=== PATIENT | female | born 1950 | race Caucasian/White ===

== ENCOUNTER 2019-10-27 14:48 | Outpatient (CLI) | payer MEDICARE, SELFPAY ==
--- NOTE | ~2019-10-27 | DEXA_ITS ---
Bone Density Report Name: Lauren Chen Age: 69 Sex: Female Ethnicity: White Date of : 1950 Indication: postmenopausal; cancer; asthma or emphysema; hysterectomy; Referring Provider: Marlin, Magali Sigala Study: Bone densitometry was performed. Exam Date: October 27, 2019 Accession number: [id number] Bone Density: Region BMD T-score Z-score Classification AP Spine (L1, L2, L3) 1.241 2.0 4.0 Normal Femoral Neck (Left) 0.752 -0.9 0.8 Normal Total Hip (Left) 0.916 -0.2 1.2 Normal Total Hip Bilateral Avg 0.938 -0.1 1.4 Normal Femoral Neck (Right) 0.799 -0.4 1.2 Normal Total Hip (Right) 0.958 0.1 1.5 Normal World Health Organization criteria for BMD impression classify patients as: Normal (T-score at or above -1.0), Osteopenia (T-score between -1.0 and -2.5), or Osteoporosis (T-score at or below -2.5). 10-year Fracture Risk: FRAX not reported because: All T-scores for Spine Total, Hip Total, Femoral Neck at or above -1.0 Previous Exams: Region Exam Age BMD T-score BMD Change BMD Change Date g/cm2 vs Baseline vs Previous AP Spine(L1, L2, L3) 10/27/2019 69 1.241 2.0 -0.003(-0.2%)# 0.021(1.7%) 07/09/2017 66 1.220 1.8 -0.024(-1.9%)# -0.030(-2.4%)* 11/09/2014 64 1.250 2.1 0.007(0.5%)# -0.016(-1.2%)# 07/30/2010 60 1.266 2.3 0.022(1.8%) 0.009(0.8%) 03/13/2008 57 1.256 2.2 0.013(1.0%) 0.039(3.2%)* 12/03/2005 55 1.217 1.8 -0.026(-2.1%)* -0.026(-2.1%)* 01/10/2004 53 1.243 2.0 Total Hip(Left) 10/27/2019 69 0.916 -0.2 -0.091(-9.0%)# -0.079(-8.0%)* 07/09/2017 66 0.996 0.4 -0.012(-1.2%)# 0.012(1.2%) 11/09/2014 64 0.984 0.3 -0.024(-2.4%)# 0.024(2.5%)# 07/30/2010 60 0.959 0.1 -0.048(-4.8%)* 0.053(5.9%)* 03/13/2008 57 0.906 -0.3 -0.101(-10.1%) -0.092(-9.2%)* 12/03/2005 55 0.998 0.5 -0.010(-1.0%) 0.027(2.8%) 01/10/2004 53 0.971 0.2 -0.037(-3.7%)* -0.037(-3.7%)* 10/21/2001 51 1.008 0.5 Total Hip(Right) 10/27/2019 69 0.958 0.1 -0.038(-3.8%)# -0.035(-3.5%)* 07/09/2017 66 0.993 0.4 -0.003(-0.3%)# 0.001(0.1%) 11/09/2014 64 0.992 0.4 -0.003(-0.4%)# 0.008(0.8%)# 07/30/2010 60 0.984 0.3 -0.011(-1.1%) 0.082(9.0%)* 03/13/2008 57 0.903 -0.3 -0.093(-9.3%)* -0.069(-7.1%)* 12/03/2005 55 0.972 0.2 -0.024(-2.4%) 0.019(2.0%) 01/10/2004 53 0.952 0.1 -0.043(-4.3%)* -0.043(-4.3%)* 10/21/2001 51 0.995 0.4 *Denotes significance at 95% confidence level, LSC for AP Spine = 0.022 g/cm2, LSC for Total
--- NOTE | ~2019-10-27 | MM_ITS ---
EXAMINATION: MM screening [facility] BI w lex HISTORY: Screening mammogram TECHNIQUE: Craniocaudal and mediolateral oblique 3-D tomosynthesis images were obtained and synthetic 2-D images were generated. CAD analysis was submitted and interpreted. COMPARISON: 07/09/2017, 11/09/2014, 12/31/2011 BREAST PARENCHYMAL COMPOSITION: The breasts are almost entirely fatty. FINDINGS: There is no evidence of suspicious mass, calcification, or architectural distortion to sugg est malignancy in either breast. There has been no suspicious interval change. IMPRESSION: 1. No mammographic evidence of malignancy. 2. Recommend routine screening mammography in one year. BI-RADS Category 1: Negative Reviewed, dictated and finalized at location A. TIER
== END 2019-10-27 14:49 | disposition home or self-care (01) ==
LOC: ANHIMG 14:54
PROVIDERS: PCP Family Medicine; Visit Provider Nurse Practitioner Family
DX: Z12.31 Encounter for screening mammogram for malignant neoplasm of breast (principal); Z78.0 Asymptomatic menopausal state
CPT/HCPCS: 77063; 77067; 77080

== ENCOUNTER 2020-04-10 09:27 | Outpatient (CLI) | payer MEDICARE, SELFPAY ==
[2020-04-10 10:55] LABS: Free T4 Free Thyroxine 1.52 ng/mL (0.78-2.19)
[2020-04-10 11:08] LABS: Thyroid Stimulating Hormone 0.166 uIU/mL (0.465-4.680)
[2020-04-13 14:05] LABS: Triiodothyronine T3 Free 3.2 pg/mL (2.3-4.2)
== END 2020-04-10 09:28 | disposition home or self-care (01) ==
LOC: ANHLAB 09:29
PROVIDERS: PCP Family Medicine; Visit Provider Internal Medicine Endocrinology, Diabetes & Metabolism
DX: C73 Malignant neoplasm of thyroid gland (principal); E04.9 Nontoxic goiter, unspecified
CPT/HCPCS: 36415; 84439; 84443; 84481

== ENCOUNTER 2020-10-02 06:41 | Outpatient (CLI) | payer MEDICARE, SELFPAY ==
[2020-10-02 08:23] LABS: Thyroid Stimulating Hormone 0.042 uIU/mL (0.465-4.680)
[2020-10-02 09:14] LABS: Free T4 Free Thyroxine 1.62 ng/mL (0.78-2.19)
[2020-10-07 05:24] LABS: Triiodothyronine T3 Free 3.6 pg/mL (2.3-4.2)
== END 2020-10-02 06:42 | disposition home or self-care (01) ==
PROVIDERS: PCP Family Medicine; Visit Provider Internal Medicine Endocrinology, Diabetes & Metabolism
DX: C73 Malignant neoplasm of thyroid gland (principal); E04.9 Nontoxic goiter, unspecified
CPT/HCPCS: 36415; 84439; 84443; 84481

== ENCOUNTER 2020-11-13 08:50 | Outpatient (CLI) | payer MEDICARE, SELFPAY ==
[2020-11-13 10:34] LABS: Thyroid Stimulating Hormone 0.024 uIU/mL (0.465-4.680)
[2020-11-13 11:09] LABS: Free T4 Free Thyroxine 1.57 ng/mL (0.78-2.19)
== END 2020-11-13 08:51 | disposition home or self-care (01) ==
PROVIDERS: PCP Family Medicine; Visit Provider Internal Medicine Endocrinology, Diabetes & Metabolism
DX: C73 Malignant neoplasm of thyroid gland (principal); E03.9 Hypothyroidism, unspecified
CPT/HCPCS: 36415; 84439; 84443

== ENCOUNTER 2020-11-26 16:43 | Outpatient (CLI) | payer MEDICARE, SELFPAY | END 2020-11-26 16:44 | disposition home or self-care (01) | LOC: ANHCOVIDVC 16:43 | PROVIDERS: PCP Family Medicine; Visit Provider Internal Medicine Endocrinology, Diabetes & Metabolism | DX: Z23 Encounter for immunization (principal) | CPT/HCPCS: 0001A; 91300 ==

== ENCOUNTER 2020-12-17 16:40 | Outpatient (CLI) | payer MEDICARE, SELFPAY | END 2020-12-17 16:41 | disposition home or self-care (01) | LOC: ANHCOVIDVC 16:40 | PROVIDERS: PCP Family Medicine | DX: Z23 Encounter for immunization (principal) | CPT/HCPCS: 0002A; 91300 ==

== ENCOUNTER 2021-02-26 10:32 | Outpatient (CLI) | payer MEDICARE, SELFPAY ==
--- NOTE | ~2021-02-26 | US_ITS ---
EXAMINATION: US carotid duplex BI DATE: 02/26/2021 11:02 INDICATION: Dizziness TECHNIQUE: Grayscale, color Doppler, and pulsed Doppler images of the cervical carotid arteries were obtained. The degree of vessel stenosis is placed in one of the following categories: normal, <50%, 5 0-69%, >=70% but less than near-occlusion, near-occlusion, or total occlusion. Note that percent sten osis relative to normal distal artery lumen diameter is indirectly measured from velocity measurement s as described by Sebastián, et al. Radiology 2003; 229:340-346. COMPARISON: None. FINDINGS: RIGHT: The right common carotid artery (CCA) peak systolic velocity (PSV) is 77 cm/s. The right internal car otid artery (ICA) PSV is 106 cm/s. The right ICA end-diastolic velocity (EDV) is 31 cm/s. The right I CA/CCA PSV ratio is 1.4. Grayscale and color Doppler images yield an estimate of <50% diameter reduct ion from plaque in the ICA. The external carotid artery (ECA) PSV is 121 cm/s. There is antegrade cyndy w in the right vertebral artery. LEFT: The left CCA PSV is 98 cm/s. The left ICA PSV is 80 cm/s. The left ICA EDV is 27 cm/s. The left ICA/C CA PSV ratio is 0.8. Grayscale and color Doppler images yield an estimate of <50% diameter reduction from plaque in the ICA. The ECA PSV is 145 cm/s. There is antegrade flow in the left vertebral artery . IMPRESSION: 1. <50% stenosis in the right internal carotid artery. 2. <50% stenosis in the left internal carotid artery. Reviewed, dictated and finalized at location A.
== END 2021-02-26 10:33 | disposition home or self-care (01) ==
PROVIDERS: PCP Nurse Practitioner Family; Visit Provider Nurse Practitioner Family
DX: R42 Dizziness and giddiness (principal); I65.23 Occlusion and stenosis of bilateral carotid arteries
CPT/HCPCS: 93880

== ENCOUNTER 2021-03-24 13:42 | Outpatient (CLI) | payer MEDICARE, SELFPAY ==
[2021-03-24 14:57] LABS: Thyroid Stimulating Hormone < 0.015 uIU/mL (0.465-4.680)
[2021-03-24 15:30] LABS: Free T4 Free Thyroxine 1.78 ng/mL (0.78-2.19)
[2021-03-28 02:25] LABS: Thyroglobulin 0.5 ng/mL (2.8-40.9); Thyroglobulin Antibodies <1 IU/mL (<=1)
== END 2021-03-24 13:43 | disposition home or self-care (01) ==
PROVIDERS: PCP Nurse Practitioner Family; Visit Provider Internal Medicine Endocrinology, Diabetes & Metabolism
DX: C73 Malignant neoplasm of thyroid gland (principal); E03.9 Hypothyroidism, unspecified
CPT/HCPCS: 36415; 84432; 84439; 84443; 86800

== ENCOUNTER 2021-10-20 06:47 | Outpatient (CLI) | payer MEDICARE, SELFPAY ==
[2021-10-20 08:16] LABS: Thyroid Stimulating Hormone 0.096 uIU/mL (0.465-4.680)
[2021-10-20 08:36] LABS: Free T4 Free Thyroxine 1.59 ng/mL (0.78-2.19)
[2021-10-24 06:20] LABS: Thyroglobulin 0.7 ng/mL (2.8-40.9); Thyroglobulin Antibodies <1 IU/mL (<=1)
== END 2021-10-20 06:48 | disposition home or self-care (01) ==
PROVIDERS: PCP Nurse Practitioner Family; Visit Provider Internal Medicine Endocrinology, Diabetes & Metabolism
DX: E03.9 Hypothyroidism, unspecified (principal); C73 Malignant neoplasm of thyroid gland
CPT/HCPCS: 36415; 84432; 84439; 84443; 86800

== ENCOUNTER 2021-12-16 08:27 | Emergency (ER) | payer MEDICARE, SELFPAY ==
--- NOTE | ~2021-12-16 | CT_ITS ---
EXAMINATION: CT facial bones w con DATE: 12/16/2021 09:38 INDICATION: Right-sided facial swelling. Assess for abscess. TECHNIQUE: Computed tomography (CT) of the facial bones and maxillofacial region was performed with 7 5 mL Omnipaque-350 intravenous contrast. Coronal reconstructions were obtained. Automated exposure co ntrol and iterative reconstruction technique were employed. The dose-length product was 606.55 mGy-cm . COMPARISON: None. FINDINGS: Soft tissue swelling the right side of the face beginning inferiorly in the anterior buccal region an d extending cephalad to the malar region, also involving the right lower eyelid. No abscess. Orbits a re otherwise normal with no post septal inflammatory stranding. Mild spondylosis in the visualized mi d to upper cervical spine. Bones are otherwise unremarkable with no fracture, cortical erosions or pe riosteal reaction. Mild mucoperiosteal thickening at the bilateral ethmoid sinuses. Remaining paranas al sinuses as well as the middle ear cavities and visualized mastoid air cells are clear. Asymmetric fatty atrophy of the right parotid gland. Mild asymmetric enlargement distal normal-sized right jugul ar chain and submandibular lymph nodes which are likely reactive. No pathologically enlarged lymphade nopathy in the head and neck. IMPRESSION: 1. Right facial soft tissue swelling and subcutaneous edema consistent with cellulitis without discre te abscess. Reviewed, dictated and finalized at location A. IMPRESSION: 1. Right facial soft tissue swelling and subcutaneous edema consistent with oscar lulitis without discrete abscess.
[2021-12-16 08:36] VITALS: BP 159/88; PULSE 75; RESP 18; TEMP 37; O2SAT 98
[2021-12-16 08:42] VITALS: O2SAT 98
[2021-12-16 08:59] LABS: Basophils Percent Auto 0.4 % (0.2-1.2); Eosinophils Percent Auto 0.4 % (0-4.4); Hematocrit 41.3 % (37.0-47.0); Hemoglobin 13.8 g/dL (12.0-15.0); Immature Granulocyte Absolute 0.04 K/mm3 (0.00-0.031); Immature Granulocyte Percent A 0.4 % (0-0.5); Lymphocytes Percent Auto 21.5 % (18.3-44.2); Mean Corpuscular HGB Conc 33.4 g/dl (32-36); Mean Corpuscular Hemoglobin 30.1 pg (26-34); Mean Corpuscular Volume 90.2 fl (80-100); Monocytes Absolute Auto 0.7 K/mm3 (0.1-0.6); Monocytes Percent Auto 6.7 % (2.6-8.5); Neutrophils Absolute Auto 7.6 K/mm3 (1.3-6.7); Neutrophils Percent Auto 70.6 % (45.5-73.1); Platelet Count Result 204 k/mm3 (150-375); Red Blood Count 4.58 M/mm3 (4.2-5.4); Red Cell Distribution Width 12.6 % (11.5-14.5); White Blood Count 10.7 K/mm3 (4.5-10.0)
[2021-12-16 09:10] LABS: Alanine Aminotransferase 22 U/L (4-35); Albumin Level 4.3 g/dL (3.5-5.1); Alkaline Phosphatase 73 U/L (38-126); Anion Gap 7 mmol/L (8-16); Aspartate Amino Transferase 29 U/L (14-36); Bilirubin,Total 0.5 mg/dL (0.2-1.3); Blood Urea Nitrogen 20 mg/dL (7-17); CRP 3.5 mg/dL (<1.0); Carbon Dioxide 26 mmol/L (22-30); Chloride 106 mmol/L (98-107); Estimated CRCL calculation 73 ml/min; Estimated Glomerular Filt Rate > 60; Glucose 135 mg/dL (65-110); Potassium 3.9 mmol/L (3.4-5.0); Sodium 139 mmol/L (137-145)
--- NOTE | 2021-12-16 09:30 | PC.NURSE ---
Pt off unit to CT.
[2021-12-16 09:31] LABS: Erythrocyte Sedimentation Rate 68 mm/hr (0-20)
--- NOTE | 2021-12-16 10:19 | ED.SKABFB ---
HPI - Skin/Abscess/Foreign Bdy General Chief complaint: Skin/Abscess/Foreign Body Stated complaint: facial swelling Time Seen by Provider: 12/16/21 08:30 Source: patient History of Present Illness HPI narrative: Patient presents with right facial swelling she had swelling for the past couple days she saw her primary care doctor was started on clindamycin yesterday she follow-up with him today there seemed to be more facial swelling prickly when she woke up he was concerned for an abscess so she was referred to the ER for further evaluation. Since walking around this morning her swelling has reduced. She denies any difficulty swallowing she denies any fevers or chills. She reports all her symptoms started when she noted a pimple on her right cheek that she attempted to pop. Related Data Home Medications Medication Instructions Recorded Confirmed lisinopril 20 mg tablet 20 mg PO DAILY 04/10/20 11/03/21 clindamycin HCl 300 mg PO Q6-8H 12/16/21 Allergies Allergy/AdvReac Type Severity Reaction Status Date / Time No Known Allergies Allergy Verified 11/03/21 08:19 Review of Systems Review of Systems: CONSTITUTIONAL: Denies fever, chills, or sweats. EYES: Denies visual changes, redness, or discharge. ENT: Denies rhinorrhea, congestion, sore throat, or otalgia. CARDIOVASCULAR: Denies chest pain, palpitations, or edema. RESPIRATORY: Denies cough or dyspnea. GASTROINTESTINAL: Denies abdominal pain, nausea, vomiting, or diarrhea. GENITOURINARY: Denies dysuria or hematuria. SKIN: Denies rash or itching. MUSCULOSKELETAL: Denies back pain, joint pain, or myalgia. NEUROLOGIC: Denies headache, numbness, dizziness, or weakness. PSYCHIATRIC: Denies anxiety or depression. All systems reviewed & are unremarkable except as noted in HPI and below PMFSH Past Medical History Medical History H/O: HTN (hypertension) Headache, migraine Malignant Neoplasm of Thyroid Gland Skin cancer Surgical History Surgical History H/O knee surgery H/O thyroidectomy H/O: hysterectomy Family History Family History Father Liver cancer Mother Complicated UTI (urinary tract infection) Sibling , sister Pancreatic cancer Other Alcoholism Diabetes mellitus H/O: HTN (hypertension) Social History Social History Smoking status: Former smoker Smoking end date: 04/10/00 Alcohol intake: current Alcohol use details: not often Exam Narrative: GENERAL: Well-appearing, well-nourished, and in no acute distress. HEAD: Normocephalic, atraumatic. EYES: PERRLA and EOMI. ENT: Nares clear, no rhinorrhea or epistaxis. Mucous membranes moist. Right facial swelling with focal area of tenderness just under the abrasion on the right cheek swelling is associated with erythema and warm NECK: Supple. No masses. No JVD CHEST: Clear to auscultation. No respiratory distress. No wheezes rales or rhonchi HEART: Regular rate and rhythm. No murmur heard. Normal peripheral pulses. ABDOMEN: Soft, nontender, nondistended, normal active bowel sounds. EXTREMITIES: Normal range of motion. No edema. SKIN: Warm, dry, no rash. NEURO: No focal deficits. Alert and oriented x3. PSYCH: Normal mood and affect. Course Reevaluation(s) Reevaluation #1: Patient resting, the results and plan reviewed with patient. Patient is comfortable outpatient plan. Date: 12/16/21 Time: 10:21 Vital Signs Vital signs: Vital Signs Temperature 37.0 C 12/16/21 08:36 Pulse Rate 75 12/16/21 08:36 Respiratory Rate 18 12/16/21 08:36 Blood Pressure 159/88 H 12/16/21 08:36 Pulse Oximetry 98 12/16/21 08:36 Temperature 37.0 C 12/16/21 08:36 Pulse Rate 65 12/16/21 10:56 Respiratory Rate 18 12/16/21 10:56 Blood
[2021-12-16 10:56] VITALS: BP 115/79; PULSE 65; RESP 18; O2SAT 98
== END 2021-12-16 10:58 | disposition home or self-care (01) ==
PROVIDERS: Emergency Provider Emergency Medicine; PCP Family Medicine
DX: L03.811 Cellulitis of head [any part, except face] (principal); I10 Essential (primary) hypertension; Z85.828 Personal history of other malignant neoplasm of skin; Z85.850 Personal history of malignant neoplasm of thyroid; E89.0 Postprocedural hypothyroidism; Z87.891 Personal history of nicotine dependence
CPT/HCPCS: 36415; 70487; 80053; 85025; 85652; 86140; 99284; Q9967

== ENCOUNTER 2022-04-15 15:50 | Outpatient (CLI) | payer MEDICARE, SELFPAY ==
--- NOTE | ~2022-04-15 | MM_ITS ---
EXAMINATION: MM screening [facility] BI w lex HISTORY: Screening TECHNIQUE: Craniocaudal and mediolateral oblique 3-D tomosynthesis images were obtained and synthetic 2-D images were generated. CAD analysis was submitted and interpreted. COMPARISON: Comparison to multiple prior studies sequentially, with oldest reviewed study dated 11/09. BREAST PARENCHYMAL COMPOSITION: There are scattered areas of fibroglandular density. FINDINGS: There are small developing fat-containing masses in the subareolar location of the right br east, consistent with fat necrosis, possibly posttraumatic. There is no evidence of suspicious mass, calcification, or architectural distortion to suggest malignancy in either breast. There has been no suspicious interval change. IMPRESSION: 1. No mammographic evidence of malignancy. 2. Recommend routine screening mammography in one year. BI-RADS Category 2: Benign finding(s). Reviewed, dictated and finalized at location L.
--- NOTE | ~2022-04-15 | DEXA_ITS ---
Bone Density Report Name: MASOUD BURT Age: 71 Sex: Female Ethnicity: White Date of : 1950 Indication: postmenopausal; screening for osteoporosis; height loss; cancer; asthma or emphysema; hysterectomy; Referring Provider: [facility] Study: Bone densitometry was performed. Exam Date: April 15, 2022 Accession number: [id number] Bone Density: Region BMD T-score Z-score Classification AP Spine(L1-L4) 1.337 2.6 4.8 Normal Femoral Neck (Left) 0.757 -0.8 1.0 Normal Total Hip (Left) 0.924 -0.1 1.4 Normal Femoral Neck (Right) 0.755 -0.8 1.0 Normal Total Hip (Right) 0.965 0.2 1.7 Normal Total Hip Mean 0.945 0.1 1.6 Normal World Health Organization criteria for BMD impression classify patients as: Normal (T-score at or above -1.0), Osteopenia (T-score between -1.0 and -2.5), or Osteoporosis (T-score at or below -2.5). 10-year Fracture Risk: FRAX not reported because: All T-scores for Spine Total, Hip Total, Femoral Neck at or above -1.0 Previous Exams: Region Exam Age BMD T-score BMD Change BMD Change Date g/cm2 vs Baseline vs Previous AP Spine (L1-L4) 04/15/2022 71 1.337 2.6 0.051 (3.9%)* 0.080 (6.4%)* 07/09/2017 66 1.257 1.9 -0.029 (-2.3%) -0.029 (-2.3%) 11/09/2014 64 1.286 2.2 Total Hip(Left) 04/15/2022 71 0.924 -0.1 -0.059 (-6.0%) 0.008 (0.9%) 10/27/2019 69 0.916 -0.2 -0.067 (-6.8%) -0.079 (-8.0%) 07/09/2017 66 0.996 0.4 0.012 (1.2%) 0.012 (1.2%) 11/09/2014 64 0.984 0.3 Total Hip(Right) 04/15/2022 71 0.965 0.2 -0.027 (-2.7%) 0.008 (0.8%) 10/27/2019 69 0.958 0.1 -0.034 (-3.5%) -0.035 (-3.5%) 07/09/2017 66 0.993 0.4 0.001 (0.1%) 0.001 (0.1%) 11/09/2014 64 0.992 0.4 *Denotes significance at 95% confidence level, LSC for AP Spine = 0.022 g/cm2, LSC for Total Hip = 0.027 g/cm2 Clinical Information Provided by Patient: Smokes Has the following medical conditions: Asthma or Emphysema, Cancer, Hysterectomy Patient maximum height was 66 Menopause Age: 51 Onset of menses at age 14 Number of children 1 Impression: The patient has normal bone mass. The patient has risk factors, including: smoking. No significant bone loss was observed. Discussion: BONE DENSITY IS ABOVE THE MINIMUM DESIRABLE LEVEL AT ALL SKELETAL SITES TESTED. This patient?s bone mineral density is above the minimum desirable level (T-score -1.0 or better) at all si
== END 2022-04-15 15:51 | disposition home or self-care (01) ==
LOC: ANHIMG 15:52
PROVIDERS: PCP Family Medicine; Visit Provider Family Medicine
DX: Z12.31 Encounter for screening mammogram for malignant neoplasm of breast (principal); Z91.89 Other specified personal risk factors, not elsewhere classified; Z78.0 Asymptomatic menopausal state
CPT/HCPCS: 77063; 77067; 77080

== ENCOUNTER 2022-06-03 07:55 | Outpatient (CLI) | payer MEDICARE, SELFPAY ==
[2022-06-03 09:00] LABS: Free T4 Free Thyroxine 1.83 ng/mL (0.78-2.19)
[2022-06-03 09:12] LABS: Thyroid Stimulating Hormone < 0.015 uIU/mL (0.465-4.680)
[2022-06-06 01:57] LABS: Thyroglobulin 0.5 ng/mL (2.8-40.9); Thyroglobulin Antibodies <1 IU/mL (<=1)
== END 2022-06-03 07:56 | disposition home or self-care (01) ==
PROVIDERS: PCP Family Medicine; Visit Provider Internal Medicine Endocrinology, Diabetes & Metabolism
DX: C73 Malignant neoplasm of thyroid gland (principal); E03.9 Hypothyroidism, unspecified
CPT/HCPCS: 36415; 84432; 84439; 84443; 86800

== ENCOUNTER 2022-12-10 09:26 | Outpatient (CLI) | payer MEDICARE, SELFPAY ==
[2022-12-10 11:22] LABS: Free T4 Free Thyroxine 1.93 ng/mL (0.78-2.19)
[2022-12-10 11:30] LABS: Thyroid Stimulating Hormone < 0.015 uIU/mL (0.465-4.680)
[2022-12-14 02:47] LABS: Thyroglobulin 0.8 ng/mL (2.8-40.9); Thyroglobulin Antibodies <1 IU/mL (<=1)
== END 2022-12-10 09:27 | disposition home or self-care (01) ==
PROVIDERS: PCP Family Medicine; Visit Provider Internal Medicine Endocrinology, Diabetes & Metabolism
DX: E03.9 Hypothyroidism, unspecified (principal); C73 Malignant neoplasm of thyroid gland
CPT/HCPCS: 36415; 84432; 84439; 84443; 86800

== ENCOUNTER 2023-01-08 14:30 | Outpatient (CLI) | payer MEDICARE, SELFPAY ==
--- NOTE | ~2023-01-08 | US_ITS ---
EXAMINATION: US soft tissue head and neck DATE: 01/08/2023 14:52 INDICATION: Malignant neoplasm of thyroid gland. TECHNIQUE: Multiple ultrasound images of the thyroid were obtained. COMPARISON: Ultrasound 10/14/2012 FINDINGS: The thyroid is absent. There is no abnormal tissue in the thyroidectomy bed. There are no pathologica lly enlarged lymph nodes. IMPRESSION: 1. Thyroidectomy. Reviewed, dictated and finalized at location A. IMPRESSION: 1. Thyroidectomy.
== END 2023-01-08 14:31 | disposition home or self-care (01) ==
PROVIDERS: PCP Family Medicine; Visit Provider Internal Medicine Endocrinology, Diabetes & Metabolism
DX: C73 Malignant neoplasm of thyroid gland (principal); E03.9 Hypothyroidism, unspecified
CPT/HCPCS: 76536

== ENCOUNTER 2023-01-11 13:36 | Outpatient (CLI) | payer MEDICARE, SELFPAY ==
--- NOTE | ~2023-01-11 | XR_ITS ---
XR foot RT min 3V DATE: 01/11/2023 13:56 INDICATION: Bilateral chronic foot pain. Medial heel pain. No known injury. TECHNIQUE: 4 views COMPARISON: None FINDINGS: Mild to moderate plantar and posterior calcaneal enthesopathy. There is mild to moderate osteophytic change at the first metatarsophalangeal joint. No fracture, dislocation, periosteal reaction or bone destruction. IMPRESSION: Plantar calcaneal enthesopathy Mild osteoarthritis Reviewed, dictated and finalized at location B.
--- NOTE | ~2023-01-11 | XR_ITS ---
XR foot LT min 3V DATE: 01/11/2023 13:56 INDICATION: Chronic posterior pain and region of Achilles tendon TECHNIQUE: 4 views COMPARISON: None FINDINGS: Moderately prominent posterior calcaneal enthesopathy with prominent soft tissue swelling a long the distal Achilles tendon and posterior calcaneal enthesopathy. Mild plantar calcaneal enthesopathy. There is mild osteoarthritis at the first, fourth and fifth metatarsophalangeal joints. Mild osteophy tic changes are noted some of the tarsal and tarsometatarsal joints. No fracture, dislocation, periosteal reaction or bone destruction is detected. IMPRESSION: Soft tissue swelling along the distal Achilles tendon and posterior calcaneal enthesopath y Mild plantar calcaneal enthesopathy Polyarticular mild osteoarthritis Reviewed, dictated and finalized at location B. IMPRESSION: Soft tissue swelling along the distal Achilles tendon and posterior calcaneal enthesopathy Mild plantar calcaneal enthesopathy Polyarticular mild osteoarthritis
== END 2023-01-11 13:37 | disposition home or self-care (01) ==
PROVIDERS: PCP Family Medicine; Visit Provider Family Medicine
DX: M19.072 Primary osteoarthritis, left ankle and foot (principal); M19.071 Primary osteoarthritis, right ankle and foot; M77.32 Calcaneal spur, left foot; M77.31 Calcaneal spur, right foot
CPT/HCPCS: 73630

== ENCOUNTER 2023-05-25 16:50 | Emergency (ER) | payer MEDICARE, SELFPAY ==
--- NOTE | 2023-05-25 16:57 | ED.EAR ---
HPI - Ear Problem General Chief complaint: Ear Stated complaint: lt earache Source: patient and RN notes reviewed History of Present Illness HPI Narrative: 72-year-old male presents to urgent care with complaint of left ear pain times 3-4 days. Patient is also reporting decreased hearing out of this ear. Patient states she believes she has a sinus infection which has now traveled to her ear. Patient reports being congested for 1 week. Denies any headache, fevers, chills, chest pain, shortness of breath, sore throat, vomiting, or diarrhea. Related Data Home Medications Medication Instructions Recorded Confirmed lisinopril 20 mg tablet 20 mg PO DAILY 04/10/20 05/25/23 atorvastatin 10 mg tablet 10 mg PO HS daily 05/25/23 05/25/23 Allergies Allergy/AdvReac Type Severity Reaction Status Date / Time No Known Allergies Allergy Verified 05/25/23 17:09 Review of Systems Review of Systems: CONSTITUTIONAL: Denies fever, chills, or sweats. EYES: Denies visual changes, redness, or discharge. ENT: left ear pain And congestion CARDIOVASCULAR: Denies chest pain, palpitations, or edema. RESPIRATORY: Denies cough or dyspnea. GASTROINTESTINAL: Denies abdominal pain, nausea, vomiting, or diarrhea. GENITOURINARY: Denies dysuria or hematuria. SKIN: Denies rash or itching. MUSCULOSKELETAL: Denies back pain, joint pain, or myalgia. NEUROLOGIC: Denies headache, numbness, or weakness. Pertinent positives per HPI. [facility] Past Medical History Medical History H/O: HTN (hypertension) Headache, migraine Malignant Neoplasm of Thyroid Gland Skin cancer Surgical History Surgical History H/O knee surgery H/O thyroidectomy H/O: hysterectomy Family History Family History Father Liver cancer Mother Complicated UTI (urinary tract infection) Sibling , sister Pancreatic cancer Other Alcoholism Diabetes mellitus H/O: HTN (hypertension) Social History Social History (Updated 12/15/22 @ 09:02 by Maurice Us CMA) Smoking status: Former smoker Smoking end date: 04/10/00 Alcohol intake: current Alcohol use details: not often Comments At the time of my signature, I reviewed and agree with the nursing past medical, surgical, social, and family history. There is no relevant family history pertinent to the patient complaint. Exam Narrative: GENERAL: This is a well-nourished, well-developed patient, in no apparent distress. HEAD: normocephalic, atraumatic. EYES: Sclera clear/white. Vision is grossly intact. EARS: External ears normal, auditory canals clear and without drainage, right-sided TM normal without perforation. Hearing grossly intact. left TM to be erythemic and slightly bulging. NOSE: congested THROAT: Mucous membranes moist, posterior pharynx clear. NECK: Neck supple, non-tender without lymphadenopathy, masses or thyromegaly. CARDIOVASCULAR: Regular rate and rhythm without murmurs, gallops, or rubs. RESPIRATORY: Clear to auscultation. Breath sounds equal bilaterally. No wheezes, rales, or rhonchi. GASTROINTESTINAL: Abdomen soft, non-tender, nondistended. Bowel sounds are active. No hepato-splenomegaly, or palpable masses. No guarding. SKIN: warm, intact with no suspicious lesions or rash, good texture and turgor. NEURO: awake, alert, and oriented to person, place and time. There were no obvious focal neurologic abnormalities. EXTREMITIES: No clubbing, cyanosis, or edema. No joint tenderness, effusion, or edema noted. BACK: Nontender without deformity or crepitus. No flank tenderness. Course Course Level of Care: Express Care Visit Vital Signs Vital signs: Vital Signs Temperature 98.1 F 05/25/23 17:03 Pulse Rate 94 05/25/23 17:03 Respiratory Rate 16 05/25/23 17:03
[2023-05-25 17:03] VITALS: BP 137/72; PULSE 94; RESP 16; TEMP 36.7; O2SAT 97
== END 2023-05-25 17:26 | disposition home or self-care (01) ==
PROVIDERS: Emergency Provider Nurse Practitioner Family; PCP Family Medicine
DX: H66.92 Otitis media, unspecified, left ear (principal); J32.9 Chronic sinusitis, unspecified; Z87.891 Personal history of nicotine dependence; I10 Essential (primary) hypertension; E89.0 Postprocedural hypothyroidism; Z85.850 Personal history of malignant neoplasm of thyroid
CPT/HCPCS: 99213; G0463

== ENCOUNTER 2023-06-01 07:54 | Outpatient (CLI) | payer MEDICARE, SELFPAY ==
[2023-06-01 08:55] LABS: Thyroid Stimulating Hormone < 0.015 uIU/mL (0.465-4.680)
[2023-06-01 09:01] LABS: Free T4 Free Thyroxine 1.94 ng/mL (0.78-2.19)
== END 2023-06-01 07:55 | disposition home or self-care (01) ==
LOC: ANHLAB 07:56
PROVIDERS: PCP Family Medicine; Visit Provider Internal Medicine Endocrinology, Diabetes & Metabolism
DX: E03.9 Hypothyroidism, unspecified (principal); C73 Malignant neoplasm of thyroid gland
CPT/HCPCS: 36415; 84439; 84443; 86800

== ENCOUNTER 2023-06-15 03:07 | Day surgery (SDC) | payer MEDICARE, SELFPAY ==
[2023-06-02 14:08] VITALS: BMI 33.8
[2023-06-15 07:35] VITALS: BP 142/79; PULSE 77; RESP 16; TEMP 35.7; O2SAT 98; BMI 33.3
[2023-06-15] MEDS: LACTATED RINGERS 1,000 ML 150 ML IV CONT (07:49)
--- NOTE | 2023-06-15 08:12 | PM.HPGS ---
History of Present Illness History of Present Illness Consent: Risks, benefits, and alternatives have been discussed and questions answered. Patient agrees to proceed with procedure. Chief complaint: Personal hx of colon polyps Narrative: Lauren Chen is a 72 year old female Presents for screening colonoscopy. Patient's current weight appetite and bowel movements are normal. She denies abdominal pain. Patient's previous colonoscopy 2017 revealed a benign adenomatous colon polyp. Patient reports current bowel habits are normal. Review of Systems Review of Systems: Review of systems noncontributory. [facility] Past Medical History Medical History H/O: HTN (hypertension) Headache, migraine Malignant Neoplasm of Thyroid Gland Skin cancer Surgical History Surgical History H/O knee surgery H/O thyroidectomy H/O: hysterectomy Family History Family History Father Liver cancer Mother Complicated UTI (urinary tract infection) Sibling , sister Pancreatic cancer Other Alcoholism Diabetes mellitus H/O: HTN (hypertension) Social History Social History (Updated 12/15/22 @ 09:02 by Maurice Us CMA) Years smoked: 15 Smoking status: Former smoker Tobacco type: cigarettes Smoking end date: 04/10/00 Alcohol intake: never Alcohol use details: not often Substance use: never Substance use type: does not use Living arrangements: with family Spiritual care concerns: No Meds Home Medications and Allergies Home Medications Medication Instructions Recorded Confirmed Type lisinopril 20 mg tablet 20 mg PO DAILY 04/10/20 06/15/23 History levothyroxine 137 mcg tablet See Rx Instructions .Route 02/15/23 06/15/23 Rx .COMPLEX #90 tabs atorvastatin 10 mg tablet 10 mg PO HS daily 05/25/23 06/15/23 History fluticasone propionate 50 1 spray intranasal BID #16 grams 05/25/23 06/15/23 Rx mcg/actuation nasal spray,suspension (24 Hour Allergy Relief) aspirin 81 mg capsule 81 mg PO EVERY OTHER DAY 06/02/23 06/15/23 History Allergies Allergy/AdvReac Type Severity Reaction Status Date / Time No Known Allergies Allergy Verified 06/15/23 07:42 Vital Signs Vital Signs - 24 hr 06/15/23 07:35 Temperature 96.2 F L Pulse Rate 77 Respiratory Rate 16 Blood Pressure 142/79 H Pulse Oximetry 98 Oxygen Delivery Room Air Exam Narrative: Physical exam reveals patient to be alert. Vital signs stable. HEENT exam is unremarkable. Patient is anicteric. Lungs are clear to auscultation and percussion. Heart is without murmur or extra sounds. Abdomen bowel sounds are present soft nontender with no organomegaly. Digital external rectal exam is normal. Assessment and Plan Assessment and plan (1) History of colon polyps: Code(s): Z86.010 - Personal history of colonic polyps Status: Acute Assessment and Plan: Patient has a history of adenomatous colon polyp removed from the colon 2017. Plan for surveillance colonoscopy at this time. Further recommendations may be given after endoscopy.
--- NOTE | 2023-06-15 08:36 | WPDANESEPPF ---
Anes - Initial Pre Proc Eval Procedure: Operation Date: 06/15/23 09:00 Proposed Procedures p Colonoscopy - Darvin Lynn MD Date/Time: 06/15/23 08:36 Surgeon: Darvin Lynn MD Pre Op Diagnosis: Personal hx of colon polyps Patient Data Age: 72 Gender: F Height: 1.7 m Weight: 96.4 kg Last Vital Signs Temp 96.2 F L 06/15/23 07:35 Pulse 77 06/15/23 07:35 Resp 16 06/15/23 07:35 BP 142/79 H 06/15/23 07:35 Pulse Ox 98 06/15/23 07:35 O2 Del Method Room Air 06/15/23 07:35 Allergies Allergy/AdvReac Type Severity Reaction Status Date / Time No Known Allergies Allergy Verified 06/15/23 07:42 Home Medications Medication Instructions Recorded Confirmed Type lisinopril 20 mg tablet 20 mg PO DAILY 04/10/20 06/15/23 History levothyroxine 137 mcg tablet See Rx Instructions .Route 02/15/23 06/15/23 Rx .COMPLEX #90 tabs atorvastatin 10 mg tablet 10 mg PO HS daily 05/25/23 06/15/23 History fluticasone propionate 50 1 spray intranasal BID #16 grams 05/25/23 06/15/23 Rx mcg/actuation nasal spray,suspension (24 Hour Allergy Relief) aspirin 81 mg capsule 81 mg PO EVERY OTHER DAY 06/02/23 06/15/23 History Patient hx anesthesia problems: none Family hx anesthesia problems: none Results Review: All pre-operative results and documents have been reviewed as part of the pre-operative evaluation. [facility] [place] Past Medical History Medical History H/O: HTN (hypertension) Headache, migraine Malignant Neoplasm of Thyroid Gland Skin cancer Surgical History Surgical History H/O knee surgery H/O thyroidectomy H/O: hysterectomy Family History Family History Father Liver cancer Mother Complicated UTI (urinary tract infection) Sibling , sister Pancreatic cancer Other Alcoholism Diabetes mellitus H/O: HTN (hypertension) Social History Social History (Updated 12/15/22 @ 09:02 by Maurice Us [facility]) Years smoked: 15 Smoking status: Former smoker Tobacco type: cigarettes Smoking end date: 04/10/00 Alcohol intake: never Alcohol use details: not often Substance use: never Substance use type: does not use Living arrangements: with family Spiritual care concerns: No Anes - Eval Final PreProcedure Day of Procedure 06/15/23 08:36 Patient weight: obese Heart: regular rate and rhythm Lungs: clear to auscultation Airway: Mallampati scale class II Neurological: alert and oriented Last oral intake: >/= 8 hours ASA classification: III Emergent: no Anesthetic plan: proceed Anesthesia type and monitoring: general GIVS and standard monitoring Results Review: All pre-operative results and documents have been reviewed as part of the pre-operative evaluation. Informed Consent: The patient's anesthetic plan and its attendant risks and benefits were discussed with the patient/family/POA. Questions were solicited and answers provided to the satisfaction of the patient/family/POA.
[2023-06-15 09:17] VITALS: BP 114/65; PULSE 71; RESP 18; O2SAT 98
[2023-06-15 09:27] VITALS: BP 109/64; PULSE 67; RESP 19; O2SAT 100
[2023-06-15 09:37] VITALS: BP 114/75; PULSE 62; RESP 20; O2SAT 98
== END 2023-06-15 09:41 | disposition home or self-care (01) ==
PROVIDERS: PCP Family Medicine; Visit Provider Internal Medicine Gastroenterology
PROC: 0DJD8ZZ Inspection of Lower Intestinal Tract, Via Natural or Artificial Opening Endoscopic (ICD-10-PCS; CPT 45378; principal; 2023-06-15 09:00)
DX: Z12.11 Encounter for screening for malignant neoplasm of colon (principal); K64.8 Other hemorrhoids; Z86.010 Personal history of colon polyps; E89.0 Postprocedural hypothyroidism; Z85.850 Personal history of malignant neoplasm of thyroid; Z87.891 Personal history of nicotine dependence; E66.9 Obesity, unspecified; Z68.33 Body mass index [BMI] 33.0-33.9, adult
CPT/HCPCS: G0105; J2704; J7120

== ENCOUNTER 2023-09-22 10:30 | Emergency (ER) | payer MEDICARE, SELFPAY ==
[2023-09-22 10:45] VITALS: BP 120/84; PULSE 93; RESP 16; TEMP 36.7; O2SAT 97
--- NOTE | 2023-09-22 11:14 | ED.URI ---
HPI - URI/Sore Throat General Chief Complaint: Upper Respiratory Infection Stated Complaint: Sinus Time Seen by Provider: 09/22/23 11:19 Source: patient and RN notes reviewed Mode of arrival: ambulatory Limitations: no limitations History of Present Illness HPI Narrative: 73-year-old female presents with concern for 3 week history of sinus congestion, drainage, sinus pressure. Reports pain around her eyes, dental pain from sinus pressure. Reports she has tried [id number] medications without relief. She has had negative COVID test. MD elicited complaint: cough and sore throat Related Data Home Medications Medication Instructions Recorded Confirmed lisinopril 20 mg tablet 20 mg PO DAILY 04/10/20 09/22/23 atorvastatin 10 mg tablet 10 mg PO HS daily 05/25/23 09/22/23 aspirin 81 mg capsule 81 mg PO EVERY OTHER DAY 06/02/23 09/22/23 Allergies Allergy/AdvReac Type Severity Reaction Status Date / Time No Known Allergies Allergy Verified 09/22/23 10:52 Review of Systems Review of Systems: CONSTITUTIONAL: Reports malaise. Denies chills, sweats, or fever. EYES: Denies visual changes, redness, or discharge. ENT: Reports rhinorrhea, congestion, sinus pain, otalgia CARDIOVASCULAR: Denies chest pain, palpitations, or edema. RESPIRATORY: Reports cough. Denies dyspnea. GASTROINTESTINAL: Denies abdominal pain, nausea, vomiting, diarrhea SKIN: Denies rash or itching. MUSCULOSKELETAL: Denies myalgia. NEUROLOGIC: Reports headache. All systems reviewed & are unremarkable except as noted in HPI and below PMFSH Past Medical History Medical History H/O: HTN (hypertension) Headache, migraine Malignant Neoplasm of Thyroid Gland Skin cancer Surgical History Surgical History H/O knee surgery H/O thyroidectomy H/O: hysterectomy Family History Family History Father Liver cancer Mother Complicated UTI (urinary tract infection) Sibling , sister Pancreatic cancer Other Alcoholism Diabetes mellitus H/O: HTN (hypertension) Social History Social History (Updated 06/22/23 @ 08:52 by Rachel Smith CMA) Years smoked: 15 Smoking status: Former smoker Tobacco type: cigarettes Smoking end date: 04/10/00 Alcohol intake: never Alcohol use details: not often Substance use: never Substance use type: does not use Lack of Transportation: No Lack of Food: Never True Current Housing: I Have Housing Concerned About Future Housing: No Difficulty Paying Gas/Electric Bills: No Difficulty Paying for Meds: No Currently Unemployed: No Education: Associate Degree Difficulty w/ Childcare or Family Care: No Living arrangements: with family Spiritual care concerns: No Comments At time of signature, agree with nursing past medical, surgical, social and family history. There is no relevant family history pertinent to the presenting complaint Exam Narrative: GENERAL: Nontoxic-appearing, well-nourished, and in no acute distress. HEAD: Normocephalic EYES: PERRLA, conjunctivae clear ENT: Nares clear. Sinus tenderness. mucous membranes moist. TM pearly vasquez with dull light reflex bilaterally; no tragal tenderness. Oropharynx not erythematous without lesions. Tonsils not enlarged and without exudate, no drooling, no hoarseness, no trismus, uvula midline. NECK: Supple. No lymphadenopathy CHEST: Clear to auscultation, breath sounds equal. No wheezing, rhonchi, rales, or stridor. No respiratory distress, speaks in full sentences. HEART: Regular rate and rhythm. No murmur heard. SKIN: Warm, dry, no rash. NEURO: Alert and oriented x3. PSYCH: Normal mood and affect Course Course Emergency Course: Patient is aware of diagnosis, understands and agrees to treatment plan. Anticipatory
== END 2023-09-22 11:28 | disposition home or self-care (01) ==
PROVIDERS: Emergency Provider Nurse Practitioner; PCP Family Medicine
DX: J32.9 Chronic sinusitis, unspecified (principal); J40 Bronchitis, not specified as acute or chronic; Z87.891 Personal history of nicotine dependence; I10 Essential (primary) hypertension; E89.0 Postprocedural hypothyroidism; Z85.850 Personal history of malignant neoplasm of thyroid; Z87.2 Personal history of diseases of the skin and subcutaneous tissue; Z79.82 Long term (current) use of aspirin
CPT/HCPCS: 99213; G0463

== ENCOUNTER 2023-12-21 07:38 | Outpatient (CLI) | payer MEDICARE, SELFPAY ==
[2023-12-21 09:29] LABS: Free T4 Free Thyroxine 2.03 ng/mL (0.78-2.19)
[2023-12-21 09:38] LABS: Thyroid Stimulating Hormone < 0.015 uIU/mL (0.465-4.680)
[2023-12-24 03:01] LABS: Thyroglobulin 0.9 ng/mL (2.8-40.9); Thyroglobulin Antibodies <1 IU/mL (<=1)
== END 2023-12-21 07:39 | disposition home or self-care (01) ==
PROVIDERS: PCP Family Medicine; Visit Provider Internal Medicine Endocrinology, Diabetes & Metabolism
DX: E03.9 Hypothyroidism, unspecified (principal); C73 Malignant neoplasm of thyroid gland
CPT/HCPCS: 36415; 84432; 84439; 84443; 86800

== ENCOUNTER 2024-02-14 06:51 | Outpatient (CLI) | payer MEDICARE, SELFPAY ==
[2024-02-14 08:12] LABS: Thyroid Stimulating Hormone 0.024 uIU/mL (0.465-4.680)
[2024-02-14 08:17] LABS: Free T4 Free Thyroxine 1.43 ng/mL (0.78-2.19)
[2024-02-16 06:59] LABS: Thyroglobulin 0.9 ng/mL; Thyroglobulin Antibodies <1 IU/mL (< or = 1)
[2024-02-17 02:03] LABS: Triiodothyronine T3 Free 3.4 pg/mL (2.3-4.2)
== END 2024-02-14 06:52 | disposition home or self-care (01) ==
PROVIDERS: PCP Family Medicine
DX: C73 Malignant neoplasm of thyroid gland (principal)
CPT/HCPCS: 36415; 84432; 84439; 84443; 84481; 86800

== ENCOUNTER 2024-02-28 06:46 | Outpatient (CLI) | payer MEDICARE, SELFPAY ==
[2024-03-01 07:09] LABS: Thyroglobulin 1.4 ng/mL; Thyroglobulin Antibodies <1 IU/mL (< or = 1)
== END 2024-02-28 06:47 | disposition home or self-care (01) ==
PROVIDERS: PCP Family Medicine
DX: C73 Malignant neoplasm of thyroid gland (principal)
CPT/HCPCS: 36415; 84432; 84443; 86800

== ENCOUNTER 2024-04-14 08:36 | Emergency (ER) | payer MEDICARE, SELFPAY ==
--- NOTE | 2024-04-14 08:45 | ED.SKABFB ---
HPI - Skin/Abscess/Foreign Bdy General Chief complaint: Skin/Abscess/Foreign Body Stated complaint: insect bite lower extremity Time Seen by Provider: 04/14/24 08:45 Source: patient Mode of arrival: ambulatory Limitations: no limitations History of Present Illness HPI narrative: Lauren is a 73 y/o female with a history of thyroid cancer and recent lymph node dissection (04/10/24) who presents with complaints of a rash on her left thigh. She states she noticed it on the march and has slowly gotten bigger since then. She states she was outside but denies seeing any insect bite her. She denies itching, drainage, swelling, numbness/tingling, body aches, joint pain, or shortness of breath. Related Data Home Medications Medication Instructions Recorded Confirmed lisinopril 20 mg tablet 20 mg PO DAILY 04/10/20 04/14/24 atorvastatin 10 mg tablet 10 mg PO HS daily 05/25/23 04/14/24 aspirin 81 mg capsule 81 mg PO EVERY OTHER DAY 06/02/23 04/14/24 Allergies Allergy/AdvReac Type Severity Reaction Status Date / Time No Known Allergies Allergy Verified 01/12/24 10:57 Review of Systems Review of Systems: Pertinent positives per HPI. Patient denies any fever, chills, headache, visual changes, dizziness, cough, runny nose, sore throat, shortness of breath, chest pain, palpitations, nausea, vomiting, diarrhea, constipation, abdominal pain, or any urinary issues. [facility] Past Medical History Medical History H/O: HTN (hypertension) Headache, migraine Malignant Neoplasm of Thyroid Gland Skin cancer Surgical History Surgical History H/O knee surgery H/O thyroidectomy H/O: hysterectomy Family History Family History Father Liver cancer Mother Complicated UTI (urinary tract infection) Sibling , sister Pancreatic cancer Other Alcoholism Diabetes mellitus H/O: HTN (hypertension) Social History Social History Years smoked: 15 Smoking status: Former smoker Tobacco type: cigarettes Smoking end date: 04/10/00 Alcohol intake: never Alcohol use details: not often Substance use: never Substance use type: does not use Lack of Transportation: No Lack of Food: Never True Current Housing: I Have Housing Concerned About Future Housing: No Difficulty Paying Gas/Electric Bills: No Difficulty Paying for Meds: No Currently Unemployed: No Education: Associate Degree Difficulty w/ Childcare or Family Care: No Living arrangements: with family Spiritual care concerns: No Comments At the time of my signature, I reviewed and agree with the nursing past medical, surgical, social, and family history. There is no relevant family history pertinent to the patient complaint. Exam Narrative: General: Well-developed, well nourished, in no apparent distress Head: Normocephalic, atraumatic. Cardio: Regular rate and rhythm, s1 and s2 normal, no murmur appreciated. Resp: Clear to auscultation bilaterally, no rhonchi, rales, wheezing or rubs. Integumentary: left proximal anterior thigh rash measures 7x5 cm, circular, erythematous border with obvious entry point, no retained foreign body/object, tender to palpation, no drainage Course Course Emergency Course: Portions of this record may have been created with voice recognition software. Level of Care: Express Care Visit Vital Signs Vital signs: Vital Signs Temperature 37.1 C 04/14/24 08:49 Pulse Rate 106 H 04/14/24 08:49 Respiratory Rate 18 04/14/24 08:49 Blood Pressure 124/77 04/14/24 08:49 Pulse Oximetry 98 04/14/24 08:49 Oxygen Delivery Room Air 04/14/24 08:49 Temperature 37.1 C 04/14/24 08:52 Pulse Rate 106 H 04/14/24 08:52 Respirat
[2024-04-14 08:49] VITALS: BP 124/77; PULSE 106; RESP 18; TEMP 37.1; O2SAT 98
[2024-04-14 08:52] VITALS: BP 124/77; PULSE 106; RESP 18; TEMP 37.1; O2SAT 98
== END 2024-04-14 09:09 | disposition home or self-care (01) ==
PROVIDERS: Emergency Provider Nurse Practitioner Family; PCP Family Medicine
DX: S70.362A Insect bite (nonvenomous), left thigh, initial encounter (principal); W57.XXXA Bitten or stung by nonvenomous insect and other nonvenomous arthropods, initial encounter; Z87.891 Personal history of nicotine dependence; I10 Essential (primary) hypertension; Z85.850 Personal history of malignant neoplasm of thyroid; Z85.828 Personal history of other malignant neoplasm of skin; Z79.82 Long term (current) use of aspirin
CPT/HCPCS: 99213; G0463

== ENCOUNTER 2024-06-29 07:31 | Outpatient (CLI) | payer MEDICARE, SELFPAY ==
[2024-06-29 09:14] LABS: Thyroid Stimulating Hormone < 0.015 uIU/mL (0.465-4.680)
[2024-06-29 14:25] LABS: Free T4 Free Thyroxine 1.92 ng/mL (0.78-2.19)
[2024-07-03 09:22] LABS: Thyroglobulin Antibodies <1 IU/mL (< or = 1)
== END 2024-06-29 07:32 | disposition home or self-care (01) ==
PROVIDERS: PCP Family Medicine; Visit Provider Internal Medicine Endocrinology, Diabetes & Metabolism
DX: C73 Malignant neoplasm of thyroid gland (principal); E03.9 Hypothyroidism, unspecified
CPT/HCPCS: 36415; 84432; 84439; 84443; 86800

== ENCOUNTER 2024-11-10 09:59 | Emergency (ER) | payer MEDICARE, SELFPAY ==
--- NOTE | 2024-11-10 10:00 | ED_ITS ---
HPI - URI/Sore Throat General Chief Complaint: Upper Respiratory Infection Stated Complaint: flu symptoms Time Seen by Provider: 11/10/24 10:00 Source: patient Mode of arrival: ambulatory Limitations: no limitations History of Present Illness HPI Narrative: Lauren is a 74-year-old female patient presenting to the clinic today with complaints of flu-like symptoms x3 days. She reports she has had body aches, chills, cough, chest congestion, and headache. States she does have a scratchy throat due to the nasal drainage. Is coughing up some bright green phlegm at times. She is a nonsmoker. No history of COPD or asthma. Has been was tested for influenza A and positive few days ago MD elicited complaint: cough and nasal congestion Related Data Home Medications ?Medication ?Instructions ?Recorded ?Confirmed ?Last Taken ?Type lisinopril 20 mg tablet 20 mg PO DAILY 04/10/20 07/13/24 Unknown History atorvastatin 10 mg tablet 10 mg PO HS daily 05/25/23 07/13/24 Unknown History aspirin 81 mg capsule 81 mg PO EVERY OTHER DAY 06/02/23 07/13/24 Unknown History Allergies Allergy/AdvReac Type Severity Reaction Status Date / Time No Known Allergies Allergy Verified 11/10/24 10:20 Review of Systems Review of Systems: Pertinent positives per HPI. Patient denies any fever, chills, rash, headache, visual changes, dizziness, cough, shortness of breath, chest pain, palpitations, nausea, vomiting, diarrhea, constipation, abdominal pain, or any urinary issues. PMFSH Past Medical History Medical History Skin cancer Headache, migraine H/O: HTN (hypertension) Malignant Neoplasm of Thyroid Gland Surgical History Surgical History H/O total thyroidectomy with left radical neck dissection H/O knee surgery H/O thyroidectomy H/O: hysterectomy Family History Family History Father Liver cancer Mother Complicated UTI (urinary tract infection) Sibling , sister Pancreatic cancer Other Alcoholism Diabetes mellitus H/O: HTN (hypertension) Social History Social History Years smoked: 15 Smoking status: Former smoker Tobacco type: cigarettes Smoking end date: 04/10/00 Alcohol intake: never Alcohol use details: not often Substance use: never Substance use type: does not use Lack of Transportation: No Lack of Food: Never True Current Housing: I Have Housing Concerned About Future Housing: No Difficulty Paying Gas/Electric Bills: No Difficulty Paying for Meds: No Currently Unemployed: No Education: Associate Degree Difficulty w/ Childcare or Family Care: No Living arrangements: with family Spiritual care concerns: No Comments At the time of my signature, I reviewed and agree with the nursing past medical, surgical, social, and family history. There is no relevant family history pertinent to the patient complaint. Exam Narrative: General: Well-developed, well nourished, in no apparent distress Head: Normocephalic, atraumatic Eyes: Pupils equally round and reactive to light bilaterally, EOM intact, sclera and conjunctive clear, no discharge, lids normal Ears: TMs intact and congested, ear canals clear, no drainage, grossly hearing normal. Nose: Nares patent, clear nasal discharge, no inflammation, no sinus tenderness. Mouth: Oral pharynx without lesions or masses, good dentition, MMM. Postnasal drip Neck: Supple, trachea midline, no enlargement of anterior or posterior cervical nodes, no thyroid masses or goiter palpable. Cardio: Regular rate and rhythm, s1 and s2 normal, no murmur appreciated. Resp: Clear to auscultation bilaterally, no rhonchi, rales, wheezing or rubs Course Course Emergency Course: Portions of this record may have been created with voice recognition software. Level of Care: Express Care Visit Vital Signs Vital signs: Vital Signs Temperature 36.4 C 11/10/24 10:15 Pulse Rate 95 11/10/24 10:15 Respiratory Rate 18 11/10/24 10:15 Blood Pressure 139/79 11/10/24 10:15 Pulse Oximetry 99 11/10/24 10:15 Oxygen Delivery Room Air 11/10/24 10:15 Temperature 36.4 C 11/10/24 10:15 Pulse Rate 95 11/10/24 10:15 Respiratory Rate 18 11/10/24 10:15 Blood Pressure 139/79 11/10/24 10:15 Pulse Oximetry 99 02/14/25 10:15 Oxygen Delivery Room Air 11/10/24 10:15 Vital signs reviewed MDM - URI/Sore Throat MDM Narrative Medical decision making narrative: At the time of visit patient is resting comfortably on the exam table. Patient appears to be nontoxic. Labs: COVID and influenza testing was negative in the clinic today. Plan: I suspect patient has URI with cough and congestion. We will send in prescription for prednisone. Supportive measures were discussed with the patient and they voiced understanding discharge instructions and agrees to treatment plan. Return precautions reviewed Differential Diagnosis Differential diagnosis: Likely upper respiratory infection, otitis media, sinusitis, viral infection, bronchitis, influenza, pharyngitis and other (COVID) Discharge Plan Discharge Clinical Impression: Upper respiratory infection with cough and congestion Patient Disposition: Home, Self-Care Condition: Stable Instructions: Antibiotic Form, Upper Respiratory Infection (ED), Viral Syndrome (ED) Additional Instructions: COVID and influenza testing was negative in the clinic today. Take prescription medications only as prescribed-prednisone Cool-mist humidifier at the bedside May take Coricidin HBP for cold and flu symptoms Increase fluids and stay well hydrated Tylenol/motrin for pain/fever Flonase and OTC antihistamines as directed Vicks vapor rub to open sinuses Sinus rinses for congestion Cepacol spray, cough drops, throat lozenges, warm tea with honey/lemon, gargle salt water to soothe throat BRAT diet for diarrhea Clear liquids x 24 hours then advance as tolerated for nausea/vomiting Go to the ED if you develop a worsening in your condition- high fever not con trolled by Tylenol or Motrin, dehydration, weakness, lethargy, shortness of breath, or chest pain. Follow up with your PCP in 3-5 days if symptoms persist. Patient Language: Tamazight Prescriptions: New prednisone 20 mg tablet 40 mg PO DAILY 5 Days Qty: 10 0RF No Action atorvastatin 10 mg tablet 10 mg PO HS lisinopril 20 mg tablet 20 mg PO DAILY aspirin 81 mg Capsule 81 mg PO EVERY OTHER DAY levothyroxine 137 mcg tablet 137 mcg PO DAILY Qty: 90 3RF Follow-up/Referrals: Mac,MD Bubba [Primary Care Provider] - Time of Disposition: 10:26 Quality NIHSS Nursing Documentation ED NIHSS nursing documentation: reviewed/agree
--- OUTSIDE RECORDS SUMMARY | 2024-11-10 10:10 | XMS_ITS | Data Portability ---
Author Organization [place] [facility] [employer], Main Office Address [address] [place] [address] Assessment Encounter Date Assessment Date Assessment LastModified by Organization Details LastModified Time 02/04/2023 02/04/2023 This note is dictated and transcribed by [employer]. Abrasives Sales Representative variances may occur. Despite proofreading, typographical errors may occur. Not available 02/04/2023 11:45:32 04/05/2023 04/05/2023 This note is dictated and transcribed by [employer]. Abrasives Sales Representative variances may occur. Despite proofreading, typographical errors may occur. Not available 04/05/2023 11:50:04 11/11/2023 11/11/2023 72 yo F with - WELL ADULT VISIT - B/L CERUMEN IMPACTION - HLD - HTG - HTN - HYPOTHYROIDISM - B/L FEET PAIN, chronic - PALPITATIONS, intermittent - OBESITY I - H/O VIT D DEFICIENCY - H/O RT FACIAL CYST US thyroid: 01/08/23. Annual labs: 02/05/22. CT face with: 12/16/21. D/w pt in detail about her conditions, recent labs & imagines and further plan of care. Will do routine labs. Pt declined for any Rx med for her Panic attack/Anxiety attack & Feet pain. Meds as directed. Risks Vs benefits of Aspirin 81mg po QOD with food explained. Pt agreed. Diet and exercise explained in detail. BP diary education given and call us if any concerns. Cont f/u with Vocational Rehabilitation Supervisor as per schedule. Cont f/u with Cardio at [place] as per schedule. Cont f/u with Plastics at [place] as per schedule. Cont f/u with Endo at [place] as per schedule. Cont f/u with Ophtho at [place] as per schedule. HM: WWE - Long time ago. Pt declined. Mammo - 04/15/22, normal. Ordered. Colonoscopy - 06/19, polyp ++ in the past. Cont f/u with GI as per schedule (5 yrs). DEXA - 04/15/22, normal. Flu - 07/19. Tdap - 02/05/22. Pneumo - Pt got 2 doses. Shingrix - Pt got 2 doses. F/u in 2-3 weeks. B/l ear flushing on next visit. Annual labs in 11/21. [email or web address] Not available 11/11/2023 12:40:56 12/02/2023 12/02/2023 73 yo F with - B/L CERUMEN IMPACTION; S/p flushing today - ELEVATED LFTs, mild - HLD - HTG - HTN - HYPOTHYROIDISM - B/L FEET PAIN, chronic - PALPITATIONS, intermittent - OBESITY I - H/O VIT D DEFICIENCY - H/O RT FACIAL CYST Annual labs: 11/11/23. US thyroid: 01/08/23. Annual labs: 02/05/22. CT face with: 12/16/21. D/w pt in detail about her conditions, recent labs & imagines and further plan of care. Pt declined for any further work up for her LFTs at this time. Pt declined for any Rx med for her Panic attack/Anxiety attack & feet pain. Meds as directed. Risks Vs benefits of Aspirin 81mg po QD with food explained. Pt agreed. Diet and exercise explained in detail. BP diary education given and call us if any concerns. Cont f/u with Vocational Rehabilitation Supervisor as per schedule. Cont f/u with Cardio at [place] as per schedule. Cont f/u with Plastics at [place] as per schedule. Cont f/u with Endo at [place] as per schedule. Cont f/u with Ophtho at [place] as per schedule. HM: WWE - Long time ago. Pt declined. Mammo - 12/01/23, normal. Colonoscopy - 06/19, polyp ++ in the past. Cont f/u with GI as per schedule (5 yrs). DEXA - 04/15/22, normal. Flu - 07/19. Tdap - 02/05/22. Pneumo - Pt got 2 doses. Shingrix - Pt got 2 doses. F/u in 3-4 months. Lipids, LFT before next visit. Annual labs in 11/21. [email or web address] Not available 12/02/2023 11:19:05 Plan of Treatment Reminders Order Date Submit Date Provider Last Modified By Organization Details Last Modified Time Details Appointments Follow Up 15 2024 08:[address] Watts MD Not available Not available Not available Lab lipid panel, serum [address] (Lab), [address] [place], [address], 02/22/2024 08:09:22 hepatic function panel, serum [address] (Lab), [address] [place], [address], 02/22/2024 08:09:23 uric acid, serum or plasma 2023 024 [facility] (Lab), [address] [place], [address], 11/11/2023 20:30:48 CBC w/ auto diff 2023 024 [facility] (Lab), [address] [place], [address], 11/11/2023 19:29:31 CMP, serum or plasma 2023 024 [facility] (Lab), [address] [place], [address], 11/11/2023 20:06:40 urinalysi s complete, reflex culture [email or web address] (Lab), [address] [place], [address], 11/18/2023 10:50:35 magnesium , serum or plasma 2023 024 [facility] (Lab), [address] [place], [address], 11/11/2023 20:06:50 lipid panel, serum 2023 024 [facility] (Lab), [address] [place], [address], 11/11/2023 20:06:45 HbA1c (hemoglob in A1c), blood [address] (Lab), [address] [place], [address], 11/18/2023 10:50:36 vitamin D, 25-hydrox y, total, serum [address] (Lab), [address] [place], [address], 11/18/2023 10:50:36 TSH, serum or plasma 2023 024 [facility] (Lab), [address] [place], [address], 11/11/2023 21:44:16 Referral None recorded. Procedures None recorded. Surgeries None recorded. Imaging MAMMO, screening , bilateral 2023 024 [email or web address] Not available 11/25/2023 08:46:14 XR, foot, 3 or more view 2022 023 elodia [facility] [place], [address], [place], [address], 02/04/2023 11:47:11 XR, foot, 3 or more view 2022 023 elodia [facility] [place], [address], [place], [address], 02/04/2023 11:47:11 Medication Orders hydroxyzi ne HCl 10 mg tablet 2023 [facility], [address] [place] [address], [address], 09/22/2024 12:09:51 lisinopri l 20 mg tablet 2023 [facility], [facility], [place], [address], 12/02/2023 11:13:51 atorvasta tin 10 mg tablet 2023 024 [facility], [facility], [place], [address], 12/02/2023 11:13:52 lisinopri l 20 mg tablet 2023 024 [facility], [facility], [place], [address], 11/11/2023 12:31:51 Debrox 6.5 % ear drops 2023 [facility], [address] [place] [address], [address], 11/11/2023 12:32:46 atorvasta tin 10 mg tablet 2023 024 [facility], [facility], [place], [address], 11/11/2023 12:31:51 Patient TargetsNo targets recorded. Patient Instructions Encounter Date Encounter Id Patient Instructions Last Modified By Organization Details Last Modified Time 09/22/2024 [id number] get Kathi Headspac e , write out thoughts, shred. get book Finding Your Strength in Difficult Times [email or web address] Not available 10/02/2024 09:51:27 Reason for Referral None Reported. Results Created Date Observation Date Name Description Value Unit Range Abnormal Flag Note LastModifiedBy Organization Detail LastModifiedTime 11/11/19 24 11/11/2023 CBC/C OMPLE TE BLD COUNT W/DIF F white blood cells 7.3 x10'3 /uL 4.2-10 .8 Not Available [facility] (Lab) [address] [place], [address], 11/11/2023 19:29:31 11/11/19 24 11/11/2023 CBC/C OMPLE TE BLD COUNT W/DIF F red blood cells 4.64 x10'6 /uL 3.80-5 .20 Not Available [facility] (Lab) [address] [place], [address], 11/11/2023 19:29:31 11/11/19 24 11/11/2023 CBC/C OMPLE TE BLD COUNT W/DIF F hemoglobin 14.3 g/dL 12.0-1 5.6 Not Available [facility] (Lab) [address] [place], [address], 11/11/2023 19:29:31 11/11/19 24 11/11/2023 CBC/C OMPLE TE BLD COUNT W/DIF F hematocrit 42.1 % 35.7-4 5.7 Not Available [facility] (Lab) [address] [place], [address], 11/11/2023 19:29:31 11/11/19 24 11/11/2023 CBC/C OMPLE TE BLD COUNT W/DIF F mean red cell volume 90.7 fL 82.0-9 9.0 Not Available [facility] (Lab) [address] [place], [address], 11/11/2023 19:29:31 11/11/19 24 11/11/2023 CBC/C OMPLE TE BLD COUNT W/DIF F mean red cell hemoglobin 30.8 pg 27.0-3 3.0 Not Available [facility] (Lab) [address] [place], [address], 11/11/2023 19:29:31 11/11/19 24 11/11/2023 CBC/C OMPLE TE BLD COUNT W/DIF F mean RBC HGB concentratio n 34.0 g/dL 31.0-3 6.0 Not Available [facility] (Lab) [address] [place], [address], 11/11/2023 19:29:31 11/11/19 24 11/11/2023 CBC/C OMPLE TE BLD COUNT W/DIF F red cell distribution width 13.0 % 11.8-1 5.5 Not Available [facility] (Lab) [address] [place], [address], 11/11/2023 19:29:31 11/11/19 24 11/11/2023 CBC/C OMPLE TE BLD COUNT W/DIF F platelets 228 x10'3 /uL 150-40 0 Not Available [facility] (Lab) [address] [place], [address], 11/11/2023 19:29:31 11/11/19 24 11/11/2023 CBC/C OMPLE TE BLD COUNT W/DIF F mean platelet volume 11.3 fL 9.0-12 .4 Not Available [facility] (Lab) [address] [place], [address], 11/11/2023 19:29:31 11/11/19 24 11/11/2023 CBC/C OMPLE TE BLD COUNT W/DIF F neutrophils 58.3 % 39.0-7 2.0 Not Available [facility] (Lab) [address] [place], [address], 11/11/2023 19:29:31 11/11/19 24 11/11/2023 CBC/C OMPLE TE BLD COUNT W/DIF F lymphocytes 34.7 % 16.0-4 7.0 Not Available [facility] (Lab) [address] [place], [address], 11/11/2023 19:29:31 11/11/19 24 11/11/2023 CBC/C OMPLE TE BLD COUNT W/DIF F monocytes 5.7 % 5.0-12 .0 Not Available [facility] (Lab) [address] [place], [address], 11/11/2023 19:29:31 11/11/19 24 11/11/2023 CBC/C OMPLE TE BLD COUNT W/DIF F eosinophils 0.8 % 1.0-7. 0 low Not Available [facility] (Lab) [address] [place], [address], 11/11/2023 19:29:31 11/11/19 24 11/11/2023 CBC/C OMPLE TE BLD COUNT W/DIF F basophils 0.4 % 0.0-2. 0 Not Available [facility] (Lab) [address] [place], [address], 11/11/2023 19:29:31 11/11/19 24 11/11/2023 CBC/C OMPLE TE BLD COUNT W/DIF F immature granulocytes 0.1 % 0.00-0 .50 Not Available [facility] (Lab) [address] [place], [address], 11/11/2023 19:29:31 11/11/19 24 11/11/2023 CBC/C OMPLE TE BLD COUNT W/DIF F neutrophils, absolute count 4.27 x10'3 /uL 1.5-8. 0 Not Available [facility] (Lab) [address] [place], [address], 11/11/2023 19:29:31 11/11/19 24 11/11/2023 CBC/C OMPLE TE BLD COUNT W/DIF F lymphocytes, absolute count 2.55 x10'3 /uL 1.07-3 .43 Not Available [facility] (Lab) [address] [place], [address], 11/11/2023 19:29:31 11/11/19 24 11/11/2023 CBC/C OMPLE TE BLD COUNT W/DIF F monocytes, absolute count 0.42 x10'3 /uL 0.29-0 .99 Not Available [facility] (Lab) [address] [place], [address], 11/11/2023 19:29:31 11/11/19 24 11/11/2023 CBC/C OMPLE TE BLD COUNT W/DIF F eosinophils, absolute count 0.06 x10'3 /uL 0.02-0 .53 Not Available [facility] (Lab) [address] [place], [address], 11/11/2023 19:29:31 11/11/19 24 11/11/2023 CBC/C OMPLE TE BLD COUNT W/DIF F basophils, absolute count 0.03 x10'3 /uL 0.01-0 .08 Not Available [facility] (Lab) [address] [place], [address], 11/11/2023 19:29:31 11/11/19 24 11/11/2023 CBC/C OMPLE TE BLD COUNT W/DIF F immature granulocytes ,absolute 0.01 x10'3 /uL 0.00-0 .05 Not Available [facility] (Lab) [address] [place], [address], 11/11/2023 19:29:31 11/11/19 24 11/11/2023 CBC/C OMPLE TE BLD COUNT W/DIF F nucleated red blood cells 0.0 % -0 Not Available [facility] (Lab) [address] [place], [address], 11/11/2023 19:29:31 02/15/20 24 11/11/2023 CBC/C OMPLE TE BLD COUNT W/DIF F NRBC# 0.00 x10'3 /uL Not Available [facility] (Lab) [address] [place], [address], 11/11/2023 19:29:31 11/11/19 24 11/11/2023 COMPR EHENS SORAYA METAB OLIC PANEL sodium 142 mmol/ L 137-14 5 Not Available [facility] (Lab) [address] [place], [address], 11/11/2023 20:06:40 11/11/19 24 11/11/2023 COMPR EHENS SORAYA METAB OLIC PANEL potassium 4.3 mmol/ L 3.5-5. 1 Not Available [facility] (Lab) [address] [place], [address], 11/11/2023 20:06:40 11/11/19 24 11/11/2023 COMPR EHENS SORAYA METAB OLIC PANEL chloride 107 mmol/ L 98-107 Not Available [facility] (Lab) [address] [place], [address], 11/11/2023 20:06:40 11/11/19 24 11/11/2023 COMPR EHENS SORAYA METAB OLIC PANEL carbon dioxide 25 mmol/ L 22-30 Not Available [facility] (Lab) [address] [place], [address], 11/11/2023 20:06:40 11/11/19 24 11/11/2023 COMPR EHENS SORAYA METAB OLIC PANEL anion gap 14.3 mmol/ L 14-22 Not Available [facility] (Lab) [address] [place], [address], 11/11/2023 20:06:40 11/11/19 24 11/11/2023 COMPR EHENS SORAYA METAB OLIC PANEL glucose 101 mg/dL 70-99 high Not Available [facility] (Lab) [address] [place], [address], 11/11/2023 20:06:40 11/11/19 24 11/11/2023 COMPR EHENS SORAYA METAB OLIC PANEL BUN 22 mg/dL 8-19 high Not Available [facility] (Lab) [address] [place], [address], 11/11/2023 20:06:40 11/11/19 24 11/11/2023 COMPR EHENS SORAYA METAB OLIC PANEL creatinine 0.74 mg/dL 0.66-1 .25 Not Available [facility] (Lab) [address] [place], [address], 11/11/2023 20:06:40 11/11/19 24 11/11/2023 COMPR EHENS SORAYA METAB OLIC PANEL GFR >60 Refer ence Range : [facility] GFR Healt hy Adult : >60 mL/mi n/1.7 3 m2 Chron ic Kidne y Disea se: 15-60 mL/mi n/1.7 3 m2 Kidne y Failu re: <15/m L/min /1.73 m2 www.n iddk. nih.g ov The MDRD study equat ion has not been valid ated in child dean <18 years of age; pregn ant women ; the elder ly >85 years of age; or in some racia l or ethni c subgr oups, such as [facility] nics. Outsi de the valid ated raudel eters , estim ated GFR is less accur ate, requi ring clini wanda judgm ent on a case- by-ca se basis . Clini wanda inter preta tion for other races and ages must be made by the clini lilia. The MDRD study equat ion has not been valid ated for the evalu ation of serum creat inine relat ed to nutri robert l statu s or medic ation usage . For perso ns <18 years of age, a pedia tric GFR calcu lator is avail able on the [facility] websi te: https ://nigel elizalde.gloria espinosa.o rg/pr ofess ional s/kdo qi/gf r_cal culat or Not Available [facility] (Lab) [address] [place], [address], 11/11/2023 20:06:40 11/11/19 24 11/11/2023 COMPR EHENS SORAYA METAB OLIC PANEL alkaline phosphatase 80 U/L 38-126 Not Available [facility] (Lab) [address] [place], [address], 11/11/2023 20:06:40 11/11/19 24 11/11/2023 COMPR EHENS SORAYA METAB OLIC PANEL alanine aminotransfe rase 53 U/L 0-35 high Not Available [facility] (Lab) [address] [place], [address], 11/11/2023 20:06:40 11/11/19 24 11/11/2023 COMPR EHENS SORAYA METAB OLIC PANEL aspartate aminotransfe rase 50 U/L 15-37 high Not Available [facility] (Lab) [address] [place], [address], 11/11/2023 20:06:40 11/11/19 24 11/11/2023 COMPR EHENS SORAYA METAB OLIC PANEL bilirubin, total 0.90 mg/dL 0.20-1 .30 Not Available [facility] (Lab) [address] [place], [address], 11/11/2023 20:06:40 11/11/19 24 11/11/2023 COMPR EHENS SORAYA METAB OLIC PANEL calcium 9.6 mg/dL 8.4-10 .2 Not Available [facility] (Lab) [address] [place], [address], 11/11/2023 20:06:40 11/11/19 24 11/11/2023 COMPR EHENS SORAYA METAB OLIC PANEL total protein 7.6 g/dL 6.3-8. 2 Not Available [facility] (Lab) [address] [place], [address], 11/11/2023 20:06:40 11/11/19 24 11/11/2023 COMPR EHENS SORAYA METAB OLIC PANEL albumin 4.3 g/dL 3.0-4. 4 Not Available [facility] (Lab) [address] [place], [address], 11/11/2023 20:06:40 11/11/19 24 11/11/2023 COMPR EHENS SORAYA METAB OLIC PANEL globulin 3.3 g/dL 2.6-4. 2 Not Available [facility] (Lab) [address] [place], [address], 11/11/2023 20:06:40 11/11/19 24 11/11/2023 COMPR EHENS SORAYA METAB OLIC PANEL A/G ratio 1.3 ratio 1.0-2. 0 Not Available [facility] (Lab) [address] [place], [address], 11/11/2023 20:06:40 11/11/19 24 11/11/2023 LIPID PANEL cholesterol 131 mg/dL 140-19 9 low NIH MARCELINO NSUS RECOM MENDA TION FOR LJ STERO L: ADULT CHILD LOW RISK: <200 <170 BORDE RLINE : <200- 239 ----- HIGH RISK: >240 >200 Not Available [facility] (Lab) [address] [place], [address], 11/11/2023 20:06:45 11/11/19 24 11/11/2023 LIPID PANEL triglyceride s 177 mg/dL 0-150 high NIH MARCELINO NSUS REPOR T RECOM MENDA TION FOR TRIGL YCERI RIGOBERTO: ADULT CHILD LOW RISK: <150 ----- BODER LINE: 150-1 99 ----- HIGH RISK: >200 ----- Not Available [facility] (Lab) [address] [place], [address], 11/11/2023 20:06:45 11/11/19 24 11/11/2023 LIPID PANEL HDL cholesterol 43 mg/dL 40- Not Available [facility] (Lab) [address] [place], [address], 11/11/2023 20:06:45 11/11/19 24 11/11/2023 LIPID PANEL LDL cholesterol, calculated 53 mg/dL 0-130 NIH MARCELINO NSUS REPOR T RECOM MENDA TIONS FOR LDL: ADULT CHILD LOW RISK <130 <110 (OPTI MAL LDL) <100 ----- BORDE RLINE : 130-1 59 ----- HIGH RISK: >160 >130 A TRIGL YCERI DE RESUL T >400 INVAL IDATE S THE CALCU LATIO N FOR LDL FRACT IONAT ION - THE LDL RESUL T WILL NOT BE REPOR TIMI. Not Available [facility] (Lab) [address] [place], [address], 11/11/2023 20:06:45 11/11/19 24 11/11/2023 MAGNE SIUM magnesium 1.6 mg/dL 1.6-2. 3 Not Available [facility] (Lab) [address] [place], [address], 11/11/2023 20:06:49 11/11/19 24 11/11/2023 VITAM IN D 25-HY DROXY vd25oh 62.9 NG/mL 30-100 Vitam in D Statu s: Defic ient: <20 ng/mL Insuf ficie nt: 20-29 ng/mL Suffi cient : 30-10 0 ng/mL Not Available [facility] (Lab) [address] [place], [address], 11/11/2023 20:23:09 11/11/19 24 11/11/2023 URIC ACID SERUM uric acid 6.1 mg/dL 2.5-6. 2 Not Available [facility] (Lab) [address] [place], [address], 11/11/2023 20:30:48 11/11/19 24 11/11/2023 HEMOG LOBIN A1C HA1C 5.7 % 4.0-6. 0 Diabe héctor Scree talia Crite delicia: <5.7% Consi stent with absen ce of diabe héctor 5.7-6 .4% Consi stent with incre ased risk for diabe héctor (pred iabet es) >OR=6 .5% Consi stent with diabe héctor REFER ENCE: Diabe héctor Care 2016, 39(Price ppl.1 ):s13 -s22 Not Available [facility] (Lab) [address] [place], [address], 11/11/2023 21:30:10 11/11/19 24 11/11/2023 TEST NOT PERFO RMED test not performed SEE COMMEN T UNABL E TO PERFO RM URINA LYSIS TESTI NG DUE TO NO SPECI MEN SENT TO LAB: LAUREN MORENO N 07/11 Not Available [facility] (Lab) [address] [place], [address], 11/11/2023 21:40:12 11/11/19 24 11/11/2023 TSH W/REF JOSÉ FT4 TSH with reflex free T4 <0.015 uIU/m L 0.465- 4.680 low Not Available [facility] (Lab) [address] [place], [address], 11/11/2023 21:44:16 11/11/19 24 11/11/2023 T4 FREE free T4 1.90 NG/dL 0.78-2 .19 Not Available [facility] (Lab) [address] [place], [address], 11/11/2023 22:25:00 01/09/20 23 01/08/2023 US, neck No observ ation record ed. [email or web address] [facility] [address] [facility] [address] [address], [place], [address], 01/11/2023 14:05:16 01/12/20 23 01/11/2023 XR, foot, 3 or more view No observ ation record ed. [address], [place], [address], 11/11/2023 12:25:12 01/12/20 23 01/11/2023 XR, foot, 3 or more view No observ ation record ed. [address], [place], [address], 11/11/2023 12:25:12 02/05/20 23 XR, foot, 3 or more view No observ ation record ed. [email or web address] [facility] [place] [address], [place], [address], 02/04/2023 11:46:08 02/05/20 23 XR, foot, 3 or more view No observ ation record ed. [email or web address] [facility] [place] [address] [facility] [address], [place], [address], 02/04/2023 11:46:51 02/05/20 23 02/04/2023 XR, foot, 3 or more view No observ ation record ed. [address], [place], [address], 11/11/2023 12:25:11 12/01/19 24 MAMMO , scree talia, digit al, bilat eral [facility] [address] [facility], [place] [address] Patijustus t Name: LAUREN BURT ion #: [id number] Sex: F : 1949 9 Locati on: RA2 Attend ing Physic nelly: WATTS, BHAVES H Orderi ng Physic nelly: RONAK WATTS Exam Date: 12/01/19 8:24 AM Exam Name: DIGITNishi L HIREN BILAT SCREEN Admitt ing Diagno sis(es ): RADIOL OGY REPORT - FINAL EXAM: MG DIGITA L HIREN BILAT SCREEN HISTOR Y: screen ing mammog cedrick 73-yea r-old female with no curren t breast compla ints. COMPAR CLIFFORD: 2021, 2019 TECHNI QUE: Bilate ral CC and MLO views of the breast s were perfor med. Digita l Mammog rogers images were obtain ed. CAD (compu ter assist ed detect ion) was utiliz ed. FINDIN GS: The breast s are almost entire ly fatty. No masses , asymme tries, suspic ious calcif icatio ns, or katalina ectura l distor tion are seen. Page 1 of 2 [facility] Name: LAUREN BURT Access ion #: [id number] Sex: F : 1949 9 Exam Date: 12/01/19 8:24 AM Exam Name: DIGITNishi L HIREN BILAT SCREEN Admitt ing Diagno sis(es ): IMPRES CECIL: BIRADS 1: Assess ment comple te. Negati ve. Recomm end annual screen ing mammog rogers. Accord ing to the [employer], yearly mammog ramana are recomm ended starti ng at age 40 and contin uing as long as the woman is in good health . Clinic al Breast Exam should be part of the period health exam-a bout every 3 years for women in their 20s and 30s and every year for women 40 and over. Breast self-e xam is an option for women in their 20s. Any breast change noted on the breast self-e xam she would be report ed prompt [facility]. A negati ve mammog rogers report should not discou rage follow -up or biopsy of a clinic ally signif icant findin g and/or abnorm ality. Dense breast tissue may obscur e small neopla sms. This linda tellez has been entere d into a mammog rogers remind er system with a target date for her next mammog cedrick. Create d and electr onical ly signed by: Julian ureña MD Signed Date: 12/01/19 9:46 AM (CT) Dictat ed by: Julian ureña MD (CT) (CT) Page 2 of [address] (Imaging) [address] [place], [address], 12/02/2023 11:04:28 11/08/1911/01/2024 PET-C T, whole body scan No observ ation record ed. [email or web address] [place] [address] Radiology [address] [place], [address], 11/08/2024 15:10:57 Result Notes None recorded. Problems Name Problem SNOMED Code Status Onset Date Resolution Date Notes Provider Name and Address Organization Details Recorded Time Impacted cerumen of bilatera l ears 48537869597 79930 Active 2021 [facility] Available [facility] 12:09:18 Acute sinusiti s 59152802 Completed Not Available [facility] 3 06:04:27 Pain of right ankle joint 45427334613 116804 Active 2021 Not Available [facility] 3 12:09:18 Otalgia 67158574 Completed Not Available [facility] 3 06:04:27 Asthma 772885801 Active Not Available [facility] 3 12:09:18 Cellulit is of face 483012752 Active 2021 Not Available [facility] 3 12:09:18 Abscess of face 126014273 Active 2021 Not Available [facility] 3 12:09:18 Fluid level behind tympanic membrane Completed Not Available [facility] 3 06:04:27 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 [facility] Not Available [facility] 3 12:09:18 Facial swelling 999538951 Active 2021 Not Available [facility] 3 12:09:18 Menopaus e present 960917186 Active Not Available [facility] 3 12:09:18 Hypertri glycerid emia 961375201 Active 2021 Not Available [facility] 3 12:09:18 Current tear of medial cartilag e AND/OR meniscus of knee Active Not Available [facility] 3 12:09:18 Current tear of lateral cartilag e AND/OR meniscus of knee Active Not Available [facility] 3 12:09:18 Knee pain Active 2017 Not Available [facility] 3 12:09:18 Otitis externa [id number] Completed Not Available [facility] 3 06:04:28 Vitamin D deficien cy 51714852 Active 2021 Not Available [facility] 3 12:09:18 Hyperten sive disorder 82186850 Active Not Available [facility] 3 12:09:18 Fever [id number] Completed Not Available [facility] 3 06:04:28 Osteoart hritis 310349626 Active Not Available [facility] 3 12:09:18 Hypothyr oidism 95687374 Active Not Available [facility] 3 12:09:19 Obesity 108636612 Active 2021 Not Available [facility] 3 12:09:19 History of polyp of colon 627506074 Active 2020 Not Available [facility] 3 12:09:19 Cough 54645140 Completed Not Available [facility] 3 06:04:29 Upper respirat ory infectio n 54498063 Completed Not Available [facility] 3 06:04:29 Hyperlip idemia 16727118 Active 2021 Not Available [facility] 3 12:09:19 Liver enzymes level above referenc e range 984991850 Active 2016 Not Available [facility] 3 12:09:19 Posterio r rhinorrh ea 25254676 Completed Not Available [facility] 3 06:04:29 Dermoid cyst of face 357802366 Active 2021 Not Available [facility] 3 12:09:19 Fatigue 58741140 Completed Not Available [facility] 3 06:04:30 Intermit tent palpitat ions 938384479 Active 2022 Not Available [facility] 3 12:09:18 Bilatera l chronic pain of feet 98369939326 501734 Active 2022 Not Available [facility] 3 12:09:18 Tendinit is of right posterio r tibial tendon 20324635783 9102 Active 2022 Not Available [facility] 3 12:09:18 Left Achilles tendinit is 34823656172 9102 Active 2022 Not Available [facility] 3 12:09:18 Calcanea l spur 69025706 Active 2022 Not Available [facility] 3 12:09:19 Equinus contract ure of the ankle 158429088 Active 2022 Not Available [facility] 3 12:09:18 Congenit al pes planus 99547290 Active 2022 Not Available [facility] 3 12:09:18 Pain in both feet 11232032454 534693 Active 2022 Not Available [facility] 3 12:09:18 Anxiety 89307760 Active 2023 HECTOR Caruso [address], [place], [address] , [employer] 4 12:00:54 Problem Notes None recorded. Procedures Surgical History Date Name Laterality Status Provider Name and Address Organization Details Recorded Time 4 Ear Irrigation completed Bubba Watts MD [address], [place], [address], [employer] 12/02/2023 11:05:21 3 Joint Injection-Podia try completed Juan R Lucas DPM [address], [place], [address], [place] - [facility] 04/05/2023 11:53:46 Imaging Results Imaging Date Name Status LastModified by Organiz ation Details LastModified Time 01/08/2023 US, neck completed [email or web address] [facility], [place], [address], 01/11/2023 14:05:16 01/11/2023 XR, foot, 3 or more view completed [address] [facility], [place], [address], 11/11/2023 12:25:12 01/11/2023 XR, foot, 3 or more view completed [address] [facility], [place], [address], 11/11/2023 12:25:12 02/04/2023 XR, foot, 3 or more view completed [email or web address] [place] [address] [facility] [place] [address] [facility] [address], [place], [address], 02/04/2023 11:46:08 02/04/2023 XR, foot, 3 or more view completed [email or web address] [place] [address] [facility] [place] [address] [facility] [address], [place], [address], 02/04/2023 11:46:51 02/04/2023 XR, foot, 3 or more view completed [address] [facility], [place], [address], 11/11/2023 12:25:11 12/01/2023 MAMMO, screening, digital, bilateral completed [address] (Imaging) [address], [place], [address], 12/02/2023 11:04:28 11/01/2024 PET-CT, whole body scan completed [facility] [address] [facility], [place], [address], 11/08/2024 15:10:57 Procedure Notes None recorded. Medical Equipment None Reported. Allergies No known drug allergies Medications Name Sig Start Date Stop Date Status Note LastModified by Organization Details LastModified Time cyclobenz aprine 10 mg tablet active Not Available Not Available No t Available cefazolin 1 gram solution for injection Take 1 g by injectio n route for 1 day. 02/05 completed Not Available Not Available Not Available levothyro xine 137 mcg tablet TAKE 1 TABLET DAILY active Not Available Not Available No t Available prednison e 10 mg tablet 07/05 completed Not Available Not Available Not Available ipratropi um 0.5 mg-albute rol 3 mg (2.5 mg base)/3 mL nebulizat ion soln active [facility]#: [id number] 09-29 Not Available Not Available Not Available clindamyc in HCl 300 mg capsule Take 1 capsule every 6 hours by oral route as directed for 7 days. active Not Available Not Available No t Available atorvasta tin 10 mg tablet TAKE 1 TABLET AT BEDTIME active Not Available Not Available No t Available azithromy babatunde 250 mg tablet TAKE 2 TABLETS (500 MG) BY ORAL ROUTE ONCE DAILY FOR 1 DAY THEN 1 TABLET (250 MG) BY ORAL ROUTE ONCE DAILY FOR 4 DAYS 02/15 completed Not Available Not Available Not Available fluconazo le 150 mg tablet active Not Available Not Available Not Available Coricidin HBP Cough and Cold 4 mg-30 mg tablet Take 1 tablet every 6 hours by oral route as directed for 15 days. active Not Available Not Available No t Available hydrocodo ne 5 mg-acetam inophen 325 mg tablet 07/05 completed Not Available Not Available Not Available Synthroid 150 mcg tablet TK 1 T PO QD ON AN EMPTY STOMACH 12/20 completed Not Available Not Available Not Available ondansetr on HCl 8 mg tablet Take 1 tablet every 8 hours by oral route as needed. 12/20 completed Not Available Not Available Not Available lisinopri l 20 mg tablet TAKE 1 TABLET DAILY active Not Available Not Available No t Available Debrox 6.5 % ear drops INSTILL 4 DROPS INTO AFFECTED EAR(S) BY OTIC ROUTE 2 TIMES PER DAY 2023 active Not Available Not Available Not Avai lable clindamyc in HCl 150 mg capsule 02/05 completed Not Available Not Available Not Available sulfameth oxazole 800 mg-trimet hoprim 160 mg tablet 02/05 completed Not Available Not Available Not Available peg-elect rolyte solution 420 gram oral solution 12/20 completed Not Available Not Available Not Available triamcino lone acetonide 0.1 % topical cream APPLY TOPICALL Y TO THE AFFECTED AREAS 2 TO 3 TIMES DAILY DIRECTED active Not Available Not Available No t Available Guiatuss AC 10 mg-100 mg/5 mL oral liquid Take 5 mL every 4-6 hours by oral route as needed for 10 days. active Not Available Not Available No t Available Tessalon Perles 100 mg capsule Take 1 capsule every 4-6 hours by oral route as directed for 15 days. active Not Available Not Available No t Available amoxicill in 875 mg tablet active Not Available Not Available Not Available diclofena c sodium 75 mg tablet,de layed release Take 1 tablet every 12 hours by oral route as needed for 30 days. 02/04 completed Take with food. Not Available Not Available Not Available ceftriaxo ne 500 mg solution for injection active [facility]#: [id number] 04-27 Not Available Not Available Not Available lisinopri l 5 mg tablet Take 1 tablet every day by oral route for 30 days. 07/05 completed Increase d to 20 mg po daily on 05/04/18 Not Available Not Available Not Available ibuprofen 600 mg tablet Take 1 tablet every 8 hours by oral route as needed for 5 days. active Take with food. Not Available Not Available Not Available methylpre dnisolone 4 mg tablets in a dose pack FOLLOW PACKAGE DIRECTIO NS 11/11 completed Not Available Not Available Not Available albuterol sulfate HFA 90 mcg/actua tion aerosol inhaler INHALE 2 PUFFS BY MOUTH EVERY 4 HOURS NEEDED 02/04 completed Not Available Not Available Not Available hydroxyzi ne HCl 10 mg tablet 1 or 2 tabs po as needed for anxiety up to three times daily 2023 active Not Available Not Available Not Avai lable fluticaso ne propionat e 50 mcg/actua tion nasal spray,clarissa pension Inhale 2 sprays every day by intranas al route in the morning for 30 days. active PRN Not Available Not Available No t Available doxycycli ne hyclate 100 mg tablet Take 1 tablet twice a day by oral route for 10 days. 09/22 completed Not Available Not Available Not Available levothyro xine 112 mcg tablet TAKE 1 TABLET BY MOUTH EVERY DAY. DISCONTI NUE 137MCG STRENGTH . 01/11 completed Not Available Not Available Not Available amoxicill in 875 mg-potass ium clavulana te 125 mg tablet TAKE 1 TABLET BY MOUTH EVERY 12 HOURS FOR 10 DAYS 11/11 completed Not Available Not Available Not Available amoxicill in 500 mg-potass ium clavulana te 125 mg tablet Take 1 tablet every 12 hours by oral route for 10 days. active Not Available Not Available No t Available oxycodone 5 mg tablet active Not Available Not Available Not Available valsartan 160 mg tablet TAKE 1 TABLET DAILY active Not Available Not Available No t Available Asprin Ec Low Dose 81 mg tablet,de layed release Take 1 tablet every day by oral route. active Not Available Not Available No t Available Ciprodex 0.3 %-0.1 % ear drops,clarissa pension active Not Available Not Available Not Available Dulera 100 mcg-5 mcg/actua tion HFA aerosol inhaler Inhale 2 puffs twice a day by inhalati on route. 02/18 completed Not Available Not Available Not Available mometason e 100 mcg/actua tion HFA aerosol inhaler Inhale 2 puffs twice a day by inhalati on route. 02/18 completed Not Available Not Available Not Available Fluzone High-Dose Quad 2019- (PF) 240 mcg/0.7 mL IM syringe PHARMACI ST ADMINIST ERED IMMUNIZA TION ADMINIST ERED AT TIME OF DISPENSI NG 10/30 completed Not Available Not Available Not Available BinaxNOW COVID-19 Ag Self Test kit Use as Directed on the Package 01/11 completed Not Available Not Available Not Available Vitals Date Recorded Body height Body mass index (BMI) Body weight Provider Name and Address Organization Details Last Updated DateTime 02/04/2023 170.18 cm 33.7 kg/m2 06597.36 g Petrona PRICE - [facility] [place] [employer] [facility] 02/04/2023 10:24:48 Date Recorded Heart rate Respiratory rate Oxygen saturation Oxygen saturation in Arterial blood by Pulse oximetry Systolic blood pressure Diastolic blood pressure Provider Name and Address Organization Details Last Updated DateTime 3 75 /min 14 /min 98 % 98 % 147 mm[Hg] 98 mm[Hg] Sasha Tillman [facility] [employer] [facility] 3 10:26:14 Date Recorded Body height Body mass index (BMI) Body weight Body temperature Respiratory rate Oxygen saturation Oxygen saturation in Arterial blood by Pulse oximetry Systolic blood pressure Diastolic blood pressure Provider Name and Address Organization Details Last Updated DateTime 4 170.18 cm 33.8 kg/m2 66453.6 5 g 97.4 [degF] 16 /min 99 % 99 % 146 mm[Hg] 90 mm[Hg] Chuckie Shukla [facility] [employer] [facility] 4 12:22:19 Date Recorded Body height Body mass index (BMI) Body weight Body temperature Heart rate Respiratory rate Oxygen saturation Oxygen saturation in Arterial blood by Pulse oximetry Pain severity - 0-10 verbal numeric rating [Score] - Reported Provider Name and Address Organization Details Last Updated DateTime 4 170.18 cm 33.4 kg/m2 23924.6 2 g 98 [degF] 85 /min 20 /min 97 % 97 % 0 Magali Montoya RN [facility] [employer] [facility] 4 10:59:14 Date Recorded Systolic blood pressure Diastolic blood pressure Provider Name and Address Organization Details Last Updated DateTime 12/02/2023 150 mm[Hg] 80 mm[Hg] Bubba Watts MD [address] [address], [place], [address], [facility] [employer] [facility] 12/02/2023 11:17:25 Date Recorded Body height Body mass index (BMI) Body weight Body temperature Heart rate Oxygen saturation Oxygen saturation in Arterial blood by Pulse oximetry Systolic blood pressure Diastolic blood pressure Provider Name and Address Organization Details Last Updated DateTime 4 170.18 cm 34.5 kg/m2 67760.3 2 g 97.6 [degF] 81 /min 99 % 99 % 136 mm[Hg] 100 mm[Hg] June Anders RN [facility] [employer] [facility] 4 11:51:34 Social History Question Answer Notes LastModified by Organizat ion Details LastModified Time Tobacco Smoking Status Former Smoker Petrona Ian jones, [facility] [employer] [facility] 02/04/2023 10:26:57 Do You Have An Advance Directive? No MIGRATION.85476 [id number] Information not available 11/25/2022 What Is Your Level Of Alcohol Consumption? Occasional [email or web address] Information not available 02/04/2023 Do You Wear A Helmet When Biking? No MIGRATION.[id number] [id number] Information not available 11/25/2022 Are You Blind Or Do You Have Difficulty Seeing? No MIGRATION.55028 01473 Information not available 11/25/2022 What Is Your Level Of Caffeine Consumption? Moderate MIGRATION.72556 57037 Information not available 11/25/2022 In The 14 Days Before Symptom Onset, Have You Had Close Contact With A Laboratory-confi rmed COVID-19 While That Case Was Ill? No MIGRATION.36657 61785 Information not available 11/25/2022 In The 14 Days Before Symptom Onset, Have You Had Close Contact With A Person Who Is Under Investigation For COVID-19 While That Person Was Ill? No MIGRATION.96867 30933 Information not available 11/25/2022 Are You Deaf Or Do You Have Serious Difficulty Hearing? No MIGRATION.41162 97252 Information not available 11/25/2022 What Type Of Diet Are You Following? REGULAR MIGRATION.56355 89452 Information not available 11/25/2022 Which Illicit Or Recreational Drugs Have You Used? None MIGRATION.66605 28967 Information not available 11/25/2022 Do You Or Have You Ever Used E-cigarettes Or Vape? 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 No MIGRATION.19348 35413 Information not available 11/25/2022 What Is The Fluoride Status Of Your Home? Unknown MIGRATION.78228 58472 Information not available 11/25/2022 Are There Any Guns Present In Your Home? No MIGRATION.25439 40684 Information not available 11/25/2022 Do You Use Insect Repellent Routinely? No MIGRATION.21838 48355 Information not available 11/25/2022 Where Do You Live? [place] MIGRATION.44554 07374 Information not available 11/25/2022 Do You Have A Medical Power Of Solution Spec? No MIGRATION.80657 54317 Information not available 11/25/2022 Do You Have Any Pets? Yes MIGRATION.03817 16487 Information not available 11/25/2022 What Is Your Relationship Status? MIGRATION.31595 89459 Information not available 11/25/2022 Do You Use Your Seat Belt Or Car Seat Routinely? Yes MIGRATION.46958 89533 Information not available 11/25/2022 Do You Have Smoke And Carbon Monoxide Detectors In Your Home? Yes MIGRATION.27361 83644 Information not available 11/25/2022 Are You Passively Exposed To Smoke? No MIGRATION.01064 97252 Information not available 11/25/2022 Do You Or Have You Ever Used Smokeless Tobacco? Never Used Smokeless Tobacco MIGRATION.20443 11473 Information not available 11/25/2022 Are There Any Smokers In Your House? No MIGRATION.68031 07448 Information not available 11/25/2022 How Much Tobacco Do You Smoke? No MIGRATION.00171 83974 Information not available 11/25/2022 Do You Participate In Social Media? No MIGRATION.73836 69586 Information not available 11/25/2022 Do You Feel Stressed (tense, Restless, Nervous, Or Anxious, Or Unable To Sleep At Night)? [id number] MIGRATION.93599 92153 Information not available 11/25/2022 Do You Use Sunscreen Routinely? No MIGRATION.84322 76219 Information not available 11/25/2022 Has Tobacco Cessation Counseling Been Provided? No MIGRATION.86255 58762 Information not available 11/25/2022 Have You Recently Traveled Abroad? No MIGRATION.99206 94244 Information not available 11/25/2022 Are You Currently In School? No MIGRATION.52042 88397 Information not available 11/25/2022 Do You Have Any Dietary Restrictions? No MIGRATION.01042 05553 Information not available 11/25/2022 Do You Or Have You Ever Used Any Other Forms Of Tobacco Or Nicotine? No MIGRATION.64558 16582 Information not available 11/25/2022 Sex: Female Functional Status Question Answer Note LastModified by Organizat ion Details LastModified Time Do you have difficulty walking or climbing stairs? No MIGRATION.[id number] 026 Information not available 11/25/2022 Do you have transportation difficulties? No MIGRATION.5294903 026 Information not available 11/25/2022 Are you able to walk? YESWOREST MIGRATION.8969623 026 Information not available 11/25/2022 Do you have difficulty doing errands alone? No MIGRATION.9879247 026 Information not available 11/25/2022 Are you able to care for yourself? Yes MIGRATION.8594406 026 Information not available 11/25/2022 Do you have difficulty dressing or bathing? No MIGRATION.3067095 026 Information not available 11/25/2022 What is your exercise level? Heavy MIGRATION.1090712 026 Information not available 11/25/2022 Mental Status Question Answer Note LastModified by Organizat ion Details LastModified Time Do you have difficulty concentrating, remembering or making decisions? No MIGRATION.[id number] 6 Information not available 11/25/2022 Family History Relationship Description Onset Age of this Age Resolved Age Notes LastModified by Organization Details LastModified Time Mother Cerebrovascu lar accident [email or web address] Not available 07/2023 10:26:16 Mother Hypertensive disorder [email or web address] Not available 2022 10:26:28 Father Family history of malignant neoplasm [email or web address] Not available 2022 10:26:38 Medical History Condition Response CANCER: SPECIFY Y Gynecological HistoryNo gynecological history recorded. Obstetrics History GPAL:G 0 P 0 0 0 0 Immunizations Vaccine Type Date Status Note Provider Nam e and Address Organization Details Recorded Time Respiratory syncytial virus (RSV) vaccine, unspecified 4 completed Shelley jones [facility] [employer] 12/16/2023 17:16:10 COVID-19, mRNA, LNP-S, PF, margaret-sucrose, 30 mcg/0.3 mL 4 completed Gabrielle jones [facility] [employer] [facility] [employer] 06/27/2024 16:11:57 Influenza, high-dose, trivalent, PF 9 completed Not Available [employer] 06/28/2023 12:09:19 Influenza, split virus, trivalent, preservative 10/26/201 5 completed Not Available [facility] 06/28/2023 12:09:19 COVID-19, mRNA, LNP-S, PF, 30 mcg/0.3 mL dose 1 completed Not Available [facility] 06/28/2023 12:09:19 SARS-COV-2 (COVID-19) vaccine, UNSPECIFIED 1 completed Not Available [facility] 06/28/2023 12:09:19 SARS-COV-2 (COVID-19) vaccine, UNSPECIFIED 1 completed Not Available [facility] 06/28/2023 12:09:19 Influenza, high-dose, quadrivalent, PF 0 completed Not Available [facility] 06/28/2023 12:09:19 Influenza, split virus, trivalent, preservative 6 completed Not Available [facility] 06/28/2023 12:09:19 Influenza, split virus, trivalent, preservative 4 completed Not Available [facility] 06/28/2023 12:09:19 Tdap 2 completed Not Available [facility] 06/28/2023 12:09:19 Tdap 2 completed Not Available [facility] 06/28/2023 12:09:19 Influenza, split virus, quadrivalent, PF 8 completed Not Available [facility] 06/28/2023 12:09:19 pneumococcal polysaccharide PPV23 8 completed Not Available [facility] 06/28/2023 12:09:19 Influenza, high-dose, trivalent, PF 7 completed Not Available [facility] 06/28/2023 12:09:19 Pneumococcal conjugate PCV 13 7 completed Not Available [facility] 06/28/2023 12:09:19 zoster, unspecified formulation 1 completed Not Available [facility] 06/28/2023 12:09:19 zoster live 5 completed Not Available [facility] 06/28/2023 12:09:19 Past Encounters Encounter ID Performer Location Encounter Start Date Encounter Closed Date Diagnosis/Indication Diagnosis SNOMED-CT Code Diagnosis ICD10 Code Diagnosis Note [id number] [facility] [place] [address] [place] [address] 02/18/2021 00:00:00 02/18/2021 10:04:45 [id number] [facility] [address] [place] [address] 02/19/2021 00:00:00 02/19/2021 15:07:37 [id number] [facility] [place] [address] [place] [address] 12/15/2021 00:00:00 12/15/2021 13:57:41 [id number] [facility] [place] [address] [place] [address] 12/16/2021 00:00:00 12/16/2021 09:28:59 [id number] [facility] [place] [address] [place] [address] 12/22/2021 00:00:00 12/22/2021 17:53:10 [id number] [facility] [place] [address] [place] [address] 02/05/2022 00:00:00 02/05/2022 11:55:16 [id number] [facility] [place] [address] [place] [address] 02/25/2022 00:00:00 02/25/2022 10:14:48 [id number] [facility] [place] [address] [place] [address] 05/25/2022 00:00:00 05/25/2022 09:03:06 [id number] [facility] [place] [address] [place] [address] 05/28/2022 00:00:00 05/28/2022 09:28:42 [id number] [facility] [place] [address] [place] [address] 06/08/2022 00:00:00 06/08/2022 17:34:04 [id number] [facility] [place] [address] [place] [address] 08/03/2022 00:00:00 08/03/2022 14:25:03 [id number] [facility] [address] [place] [address] 08/11/2022 00:00:00 08/11/2022 09:20:33 [id number] Bubba Watts MD [address] [address] 01/11/2023 13:51:34 01/11/2023 14:21:59 Intermittent palpitations 416543969 R00.2 of relative 871539 008 Z63.4 Hypertensive disorder 38 162121 I10 Hyperlipidemia 86531777 E78.5 Hypertriglyceridemia 302 850566 E78.2 Obesity 088631580 E66.9 Bilateral chronic pain of feet 2335875041 [id number] M79.672 [id number] Juan R Lucas DPM [facility] [place] [address] [place] [address] 02/04/2023 10:19:46 02/04/2023 12:10:48 Pain in both feet 6680190527 [id number] M79.671 M79.672 report bilateral feet 01/11 [facility] from [facility] x-raysrepe at x-rays today Congenital pes planus 23 708618 Q66.51 Q66.52 bilateral feetX-rays reviewed with the patientRec ommend orthotics Tendinitis of right posterior tibial tendon 0457005965 52223 M76.821 Rx physical therapyrec ommend over-the-c ounter [employer] orth[facility] Left Achil les tendinitis 4815780940 36149 M76.62 Rx physical therapyEdu cated on conditionC ontinue night splint at homerecomm end soft supportive shoe counter new balance style shoes which she has Equinus co ntracture of the ankle 161613160 M24.572 rice therapyRx physical therapy Calcaneal spur 31231445 M77.31 M77.32 bilateral worse to the leftx-rays reviewed with the patientrec ommend offloading to prevent inflammati on [id number] Juan R Lucas DPM [facility] Podiat[facility] [place] [address] [place] [address] 04/05/2023 11:30:30 04/05/2023 12:17:53 Bilateral chronic pain of feet 4611451783 [id number] M79.672 This note is dictated and transcribe d by [employer]. Transcript ion variances may occur. Despite proofreadi ng, typographi wanda errors may occur. Congenital pes planus 23 434852 Q66.51 Q66.52 bilateral feetX-rays reviewed with the patientcon tinue orthotics supportive shoe gear Tendinitis of right posterior tibial tendon 0363081429 52162 M76.821 Rx physical therapy- hold physical therapy for 3 weeks the infantinje ction along posterior tibial tendon at that attachment of the navicular with 90% pain resolution upon injectionc ontinue [employer] Grygla orthoticsr ice therapy daily, reviewed with the patientfol low-up in 10 weeks Left Achil les tendinitis [id number] 98050 M76.62 ResolvedCo ntinue at-home therapyCon tinue offloading and supportive shoeFollow -up as needed Calcaneal spur [id number] M77.31 M77.32 bilateral worse to the leftas above [id number] Bubba Watts MD [address] [address] 11/11/2023 12:11:47 11/11/2023 12:43:09 Hypertensive disorder 90417582 I10 Hypertriglyceridemia 302 175887 E78.2 Hyperlipidemia 46171967 E78.5 Hypothyroidism 84794481 E03.9 Intermitte nt palpitations 503025582 R00.2 Obesity 448696167 E66.9 Osteoarthritis 169079640 M19.90 Vitamin D deficiency 347 22197 E55.9 Screening mammography 24 866310 Z12.31 Impacted c erumen of bilateral ears [id number] 706515 H61.23 [id number] Bubba Watts MD [facility] [address] [address] 12/02/2023 10:47:02 12/02/2023 11:21:16 Hypertensive disorder 38252287 I10 Hypertriglyceridemia 302 258608 E78.2 Hyperlipidemia 58029144 E78.5 Hypothyroidism 60447378 E03.9 Intermitte nt palpitations 912846569 R00.2 Obesity 777171969 E66.9 Osteoarthritis 287542052 M19.90 Vitamin D deficiency 347 75674 E55.9 Improved Impacted c erumen of bilateral ears 4329445233 126185 H61.23 Liver enzy mes level above reference range 044396058 R74.01 [id number] HECTOR Caruso [facility] [address] [address] 09/22/2024 11:43:36 09/22/2024 12:16:59 Anxiety 64886582 F41.9 Hypertensive disorder 38 392298 I10 Hyperlipidemia 51430087 E78.5 Vitamin D deficiency 347 87911 E55.9 Obesity 121613708 E66.9 Health Concerns Section Related Observation LastModified by Organization Detai ls LastModified Time None Recorded Concern Status LastModified by Organization Details LastModified Time None Recorded Advance Directives Directive N: Payers Encounter Date Sequence Insurance Name Policy Number Policy [place] Covered Member ID [place] Member ID Guarantor Name 02/04/2023 2 [place] Lauren Burt [id number] Lauren Burt 02/04/2023 2 [place] [id number] Darryn V [place] [id number] Lauren De Jesusdon 04/05/2023 2 [place] Burt [id number] Lauren De Jesusdon 04/05/2023 2 [place] [id number] Darryn V [place] [id number] Lauren De Jesusdon 11/11/2023 2 [place] Burt [id number] Lauren Burt 11/11/2023 1 [employer] (MEDICARE REPLACEMENT PPO) [id number] Lauren Brut [id number] Lauren Burt 12/02/2023 2 [place] Burt [id number] Lauren Burt 12/02/2023 1 [employer] (MEDICARE REPLACEMENT PPO) Lauren Burt [id number] Lauren Burt 09/22/2024 2 [place] Lauren Burt [id number] Lauren Burt 09/22/2024 1 [employer] (MEDICARE REPLACEMENT PPO) Lauren Burt [id number] Lauren Burt Notes Date Note Type Note Provider Name and Address Organization Details Recorded Time 02/04/2023 text/html . Patient is 72-year-old female who presents the office with complaints of pain to her foot which started on December 26, 2022. Patient states she has been using anti-inflammatory and icing to help alleviate her discomfort. Patient denies any injury or wounds to the foot. patient states that she has pain to the left Achilles tendon attachment area. Patient states that she has a obvious bulge to the area. Patient states she has not had any wounds to the tendon. Patient states that she does do at-home therapy with stretching but states she continues have pain after she is walking or standing for long periods of time. Patient states that she also gets pain right after she gets up from rest. Patient states that she also is having right foot pain in the arch which she states she only gets when she is standing or walking for long periods of time. Patient states that she has flat feet and denies any history of orthotics. Patient denies any other complaints. Juan R Lucas DPM [address] [place] [address], [address], [facility] [employer] [facility] 02/04/2023 11:48:14 04/05/2023 text/html . Patient is a 72-year-old female who returns the office for follow-up on bilateral foot pain. Patient states with physical therapy her left foot Achilles tendinitis has completely resolved. Patient continues have a moderate spur at the posterior attachment of the Achilles which I did review supportive shoe gear to prevent wounds and continued inflammation. Patient was encouraged to continue stretching to prevent recurrence of the Achilles tendinitis. Patient states she is still having discomfort along her posterior tibial tendon. Patient states that her tendon gets inflamed x-rays she is walking or standing for long periods of time. Patient states that physical therapy did help and got the pain down to about a level 3 but not improved since then. Patient denies any pain at when at rest. Patient states she only has significant pain when she maximally inverts and plantar flexes the foot. Patient denies any other pedal complaints. Juan R Lucas DPM [address], [facility], [place], [address], [employer] 04/05/2023 11:54:26 11/11/2023 text/html Pt is here for f /u on her meds and chronic conditions. Doing overall well. Denies any problem with meds. Denies any new concern. Last visit in 01/17. Pt is past due for her Annual exam. Pt is f/u with multiple specialists for her chronic conditions. Bubba Watts MD [address], [place] [address], [place], [address], [employer] 11/11/2023 12:42:23 12/02/2023 text/html Pt is here for f /u on her annual labs and b/l ear flushing. Doing overall well. Denies any problem with meds. Denies any new concern. Pt has her home BP log with her and it looks good. No concern with it. Pt is f/u with multiple specialists for her chronic conditions. Bubba Watts MD [address], [place] [address], [place], [address], [employer] 12/02/2023 11:20:52 09/22/2024 text/html Just diagnosed with lung cancer. , February or March last year a spot on the right . took 17 , lymph nodes , [address] Rod at [facility] HECTOR Caruso [address], [facility] [address], [place], [address], [employer] [facility] [employer] 10/02/2024 09:52:32 OBGyn Episode No OBEpisode recorded.
--- OUTSIDE RECORDS SUMMARY | 2024-11-10 10:10 | XMS_ITS | Referral Summary ---
Author Organization [facility] [address] [place] [address] Care Team Providers Care Janitor Caretaker Name Role Phone Bubba Watts MD Primary Care Provider [phone] Haja Rod MD Unavailable [phone] Faisal Red MD Unavailable [phone] Kailyn Choi RN Unavailable Unavailable Naomi Delgadillo MD Unavailable [phone] Encounters Date Type Department Care Team Description 11/08/2024 11:45 AM DYNAMOMETER TESTER Lab [facility] - Lab Collection [address] [place] [id number] Thyroid cancer (HCC) 11/08/2024 1:15 PM DYNAMOMETER TESTER Office Visit [facility] [address] [place] [phone] Haja Rod MD Papillary thyroid carcinoma (HCC) (Primary Dx); Thyroid cancer (HCC) 11/08/2024 12:15 PM DYNAMOMETER TESTER Lab [facility] [address] [place] [phone] Thyroid cancer (HCC) 11/01/2024 6:06 AM DYNAMOMETER TESTER - 11/01/2024 11:59 PM DYNAMOMETER TESTER Hospital Encounter [facility] [address] [place] [id number] Discharge Disposition: Discharge to home or self care 11/01/2024 6:06 AM DYNAMOMETER TESTER - 11/01/2024 11:59 PM DYNAMOMETER TESTER Hospital Encounter [facility]) [address] [place] [address] Thyroid cancer (HCC) Discharge Disposition: Discharge to home or self care 10/25/2024 9:00 AM DYNAMOMETER TESTER Office Visit [facility] Department of Otolaryngology Head-Neck Division [address] [facility] [address] [place] [address] Primo Sheridan MD Thyroid cancer (HCC) (Primary Dx) from Last 3 Months Allergies No known active allergies Medications lisinopril (PRINIVIL,ZESTR IL) 20 mg tabletIndicatio ns:hypertension Take 1 tablet (20 mg total) by mouth every morning Active levothyroxine (SYNTHROID) 137 mcg tabletIndicatio ns:Thyroid cancer (HCC) Take 1 tablet (137 mcg total) by mouth daily before breakfast 30 tablet 0 Active Additional Information Patient taking differently:137 mcg oralDaily (early AM), Indications: hypothyroidism, Informant: Self, Reported on 11/08/2024 atorvastatin (LIPITOR) 10 mg tabletIndicatio ns:hyperlipidem ia Take 1 tablet (10 mg total) by mouth nightly at bedtime 3 Active ascorbic acid (ascorbic acid with raegan hips) 500 mg tablet,chewable Take 1 tablet/chew tab (500 mg total) by mouth nightly Active mv-mn/iron/foli c acid/herb 190 (VITAMIN D3 COMPLETE ORAL) Take 1 capsule by mouth nightly Active CALCIUM ORAL Take 1 Dose by mouth nightly Active oxyCODONE (ROXICODONE) 5 mg immediate release tabletIndicatio ns:Pain Take 1 tablet (5 mg total) by mouth every 4 (four) hours as needed for pain 10 tablet 4 Active aspirin 81 mg enteric coated tabletIndicatio ns:prevention of thrombosis Take 1 tablet (81 mg total) by mouth every other day 4 Active acetaminophen (TYLENOL) 325 mg tablet Take 2 tablets (650 mg total) by mouth every 6 (six) hours 4 Active Additional Information Patient not taking.Reported on 11/08/2024 ibuprofen (ADVIL,MOTRIN) 400 mg tablet Take 1 tablet (400 mg total) by mouth every 6 (six) hours as needed for pain 4 Active Additional Information Patient not taking.Reported on 11/08/2024 docusate sodium (COLACE) 100 mg capsuleIndicati ons:constipatio n Take 1 capsule (100 mg total) by mouth 2 (two) times a day as needed for constipation for up to 14 days 28 capsule 4 Active Active Problems Problem Noted Date Diagnosed Date Papillary thyroid carcinoma 04/10/2024 Lightheadedness 01/13/2023 Thyroid cancer 10/28/2018 Cancer Staging:Pathologic stage from 09/26/2013:Stage Unknown(pT3, pNX, cM0, Age at diagnosis: >= 55 years) - Signed by Lauren Parham MD on 11/19/2021 Pathologic stage from 09/26/2013:Stage Unknown(pT3, pNX, cM0, Age at diagnosis: >= 55 years) - Signed by Geovanna Horner on 10/28/2018 Overview (10/24/2024): DIAGNOSIS: 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 PROCEDURE PERFORMED: (Arvin 04/10/24) Left neck dissection Lone atrial fibrillation (CMS/HCC) 01/12/2018 Essential hypertension 01/12/2018 Anxiety 01/12/2018 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 Immunizations Name Administration Dates Next Due Influenza, Quadrivalent, Hig h Dose, Preservative Free, Intrr 05/29/2020 Influenza, Quadrivalent, Spl it, Preservative Free, Intramuscular 07/05/2018 Influenza, Trivalent, High D ose, Split, Preservative Free, Intramuscular 06/08/2019,07/09/2017 Influenza, Trivalent, IM (MDV) 07/03/2016,2014,09/27/2013 Pfizer SARS-CoV-2 Monovalent Vaccination (12+ Yrs) PURPLE 07/15/2021,12/17/2020,11/26/2020 Pneumococcal Conjugate PCV 13 07/09/2017 Pneumococcal Polysaccharide PPV23 05/04/2018 Tdap 02/05/2022,12/01/2011 ZOSTER LIVE 11/06/2014 Zoster, unspecified 08/28/2021 Social History Tobacco Use Types Packs/Day Years Used Date Smoking Tobacco: Former Cigarettes 1 20 S tarted: 1975 Passive Smoke Exposure: Past Smokeless Tobacco: Never Tobacco Cessation:Counseling Given: Not Answered Alcohol Use Standard Drinks/Week Comments Yes 0 (1 standard drink = 0.6 oz pur e alcohol) occassionally AUDIT-C Answer Date Recorded Q1: How often do you have a drink containing alcohol? Never 04/10/2024 Q2: How many drinks containi ng alcohol do you have on a typical day when you are drinking? Patient does not drink Q3: How often do you have si x or more drinks on one occasion? Never 04/10/2024 Personal Safety Answer Date Recorded Have you ever been in or are you currently in a harmful physical or emotional relationship or is someone making you feel afraid or unsafe? Denies 04/10/2024 Comments No Sex and Gender Information Value Date Recorded Sex Assigned at Not on file Legal Sex Female 12:55 AM DYNAMOMETER TESTER Gender Identity Female 01/06/2022 8:48 PM CDT Sexual Orientation Not on file Last Filed Vital Signs Vital Sign Reading Time Taken Comments Blood Pressure 136/81 11/08/2024 12:08 PM DYNAMOMETER TESTER Pulse 92 11/08/2024 12:08 PM DYNAMOMETER TESTER Temperature 36.2 C (97.2 F) 11/08/2024 12:08 PM DYNAMOMETER TESTER Respiratory Rate 16 11/08/2024 12:08 PM DYNAMOMETER TESTER Oxygen Saturation 98% 11/08/2024 12:08 PM DYNAMOMETER TESTER Inhaled Oxygen Concentration - - Weight 99 kg (218 lb 3.2 oz) 11/08/2024 12:08 PM DYNAMOMETER TESTER Height 170.2 cm (5' 7 ) 10/25/2024 8:11 AM DYNAMOMETER TESTER Body Mass Index 34.17 10/25/2024 8:11 AM DYNAMOMETER TESTER Plan of Treatment Not on file Procedures Procedure Name Priority Date/Time Associated Diagnosis Comments REFLEX THYROGLOBULIN, TUMOR MARKER, IA, S Routine 11/08/2024 11:51 AM DYNAMOMETER TESTER EGFR Routine 11/08/2024 11:51 AM DYNAMOMETER TESTER Thyroid cancer (HCC) DIFFERENTIAL AUTO Routine 11/08/2024 11: 51 AM DYNAMOMETER TESTER Thyroid cancer (HCC) COMPREHENSIVE METABOLIC PANEL Routine 11/08/2024 11:51 AM DYNAMOMETER TESTER Thyroid cancer (HCC) T4, FREE Routine 11/08/2024 11:51 AM DYNAMOMETER TESTER Thyroid cancer (HCC) CBC WITH AUTO DIFFERENTIAL Routine 11/08/2024 11:51 AM DYNAMOMETER TESTER Thyroid cancer (HCC) TSH Routine 11/08/2024 11:51 AM DYNAMOMETER TESTER Thyroid cancer (HCC) THYROGLOBULIN REFLEX TO MS OR IA Routine 11/08/2024 11:51 AM DYNAMOMETER TESTER Thyroid cancer (HCC) PET/CT FDG SKULL TO THIGH Schedule Routine, Read Routine (OP Routine) 11/01/2024 8:20 AM DYNAMOMETER TESTER Thyroid cancer (HCC) from Last 3 Months Results * (ABNORMAL) Reflex thyroglobulin, tumor marker, IA, S (11/08/2024 11:51 AM DYNAMOMETER TESTER) Thyroglobulin, Tumor Marker 15(H) ng/mL [facility] Comment: REFERENCE VALUE Athyrotic <0.1 Intact Thyroid <=33 Thyroglobulin interp See Footnote [facility] Comment: Thyroglobulin (Tg) levels must be interpreted in the context of TSH levels, serial Tg measurements and radioiodine ablation status. Tg levels of > or = 10 ng/mL in athyrotic individuals on suppressive therapy indicate a significant (>25%) risk of clinically detectable recurrent papillary/follicular thyroid cancer. ADDITIONAL INFORMATION PLEASE NOTE: The given cutoff of <1.8 IU/mL is for the detection of potential thyroglobulin antibody (TgAb) interference in thyroglobulin immunoassays. Thyroglobulin flagging is based on athyrotic reference values. A thyroglobulin antibody (TgAb) reference cutoff of <4.0 IU/mL may be more suitable for the evaluation of autoimmune thyroiditis. The thyroglobulin and thyroglobulin antibody testing methods are immunoenzymatic assays manufactured by [employer] and performed on the [employer] DXI 800. Values obtained from different assay methods or kits may be different and cannot be used interchangeably. The results cannot be interpreted as absolute evidence for the presence or absence of malignant disease. Test Performed by: [facility] [address] [place] [address] Residence Manager: Anni Aguirre Ph.D.; CLIA# [id number] Blood 11/08/2024 11:5 1 AM DYNAMOMETER TESTER 11/08/2024 2:23 PM DYNAMOMETER TESTER us Haja Rod MD LAB BLOOD ORDERABLES Final Result [facility] [place] [address] [facility] * (ABNORMAL) eGFR (11/08/2024 11:51 AM DYNAMOMETER TESTER) eGFR 47(L) >=60 mL/min/1. 73 m2 Comment: Interpretive Data Reference Interval Normal >/= 90 mL/min/1.73m2 Mildly decreased* 60 - 89 mL/min/1.73m2 Mildly to moderately decreased 45 - 59 mL/min/1.73m2 Moderately to severely decreased 30 - 44 mL/min/1.73m2 Severely decreased 15 - 29 mL/min/1.73m2 Kidney Failure < 15 mL/min/1.73m2 *Relative to young adult level Estimated glomerular filtration rate is determined by the 2020 CKD-EPI equation recommended by the National Kidney Foundation (A Unifying Approach to GFR Estimation: Recommendations of the NKF-ASK Task Force on Reassessing the Inclusion of Race in Diagnosing Kidney Disease, JASN 2020). The CKD-EPI equation should not be used for patients with unstable renal function and has not been validated in children and those over 70. Current interpretive data was last reviewed 2021. Blood 11/08/2024 11:5 1 AM DYNAMOMETER TESTER 11/08/2024 11:57 AM DYNAMOMETER TESTER us Haja Rod MD LAB BLOOD ORDERABLES Final Result [facility] [place] [address] * Differential, auto (11/08/2024 11:51 AM DYNAMOMETER TESTER) Neutrophil abs 5.6 1.5 - 6.5 K/cumm Comment:Testing performed by : [facility], [address] [place] [phone] Lymphocyte abs 2.6 0.8 - 3.3 K/cumm [facility] Comment:Testing performed by : [facility], [address] [place] [phone] Monocyte abs 0.5 0.2 - 0.8 K/cumm [facility] Comment:Testing performed by : [facility], [address] [place] [phone] Eosinophil abs 0.1 0.0 - 0.5 K/cumm [facility] Comment:Testing performed by : [facility], [address] [place] [phone] Basophil abs 0.1 0.0 - 0.1 K/cumm [facility] Comment:Testing performed by : [facility], [address] [place] [phone] Neutrophil pct 62.2 % [facility] Comment: Interpretive Data Percent cell count reference ranges are not reported, since discordance with absolute values may lead to misinterpretation of CBC data. Current Interpretive Data was last revised on 2018. Testing performed by: [facility], [address] [place] [phone] Lymphocyte pct 29.3 % [facility] Comment: Interpretive Data Percent cell count reference ranges are not reported, since discordance with absolute values may lead to misinterpretation of CBC data. Current Interpretive Data was last revised on 2018. Testing performed by: [facility], [address] [place] [phone] Monocyte pct 5.9 % [facility] Comment: Interpretive Data Percent cell count reference ranges are not reported, since discordance with absolute values may lead to misinterpretation of CBC data. Current Interpretive Data was last revised on 2018. Testing performed by: [facility], [address] [place] [phone] Eosinophil pct 1.4 % [facility] Comment: Interpretive Data Percent cell count reference ranges are not reported, since discordance with absolute values may lead to misinterpretation of CBC data. Current Interpretive Data was last revised on 2018. Testing performed by: [facility], [address] [place] [phone] Basophil pct 1.2 % [facility]ER[facility]E KWONG Comment: Interpretive Data Percent cell count reference ranges are not reported, since discordance with absolute values may lead to misinterpretation of CBC data. Current Interpretive Data was last revised on 2018. Testing performed by: [facility], [address] [place] [phone] Blood 11/08/2024 11:5 1 AM DYNAMOMETER TESTER 11/08/2024 11:55 AM DYNAMOMETER TESTER us Haja Rod MD LAB BLOOD ORDERABLES Final Result [facility] [place] [address] * Thyroglobulin reflex to MS or IA (11/08/2024 11:51 AM DYNAMOMETER TESTER) Anti-thyroglobulin <1.8 <1.8 IUnits/mL [facility] Comment: Thyroglobulin Antibody < 1.8 IU/mL. Thyroglobulin performed by Immunoassay to follow. Test Performed by: [facility] [address] [place] [address] Residence Manager: Anni Aguirre Ph.D.; CLIA# [id number] Blood 11/08/2024 11:5 1 AM DYNAMOMETER TESTER 11/08/2024 2:23 PM DYNAMOMETER TESTER us Haja Rod MD LAB BLOOD ORDERABLES Final Result [facility] [place] [address] [facility] * (ABNORMAL) CBC with auto differential (11/08/2024 11:51 AM DYNAMOMETER TESTER) WBC 9.0 3.8 - 9.9 K/cumm Comment:Testing performed by : [facility], [address] [place] [address] Hgb 14.1 11.9 - 15.5 g/dL [facility] KWONG Comment:Testing performed by : [facility], [address] [place] [address] Hct 41.5 35.6 - 45.5 % [facility]ER[facility]IST[facility] KWONG Comment:Testing performed by : [facility], [address] [place] [address] Plt 240 150 - 400 K/cumm KERRIE KWONG Comment:Testing performed by : [facility], [address] [place] [address] MPV 8.4 6.8 - 10.4 fL [facility]E KWONG Comment:Testing performed by : [facility], [address] [place] [address] RBC 4.50 3.90 - 5.20 M/cumm [facility]J Comment:Testing performed by : [facility], [address] [place] [address] MCV 92.2 81.3 - 96.4 fL [facility]ER[facility]E KWONG Comment:Testing performed by : [facility], [address] [place] [address] MCH 31.3 27.1 - 33.3 pg [facility]ERSHAISTA KWONG Comment:Testing performed by : [facility], [address] [place] [phone] MCHC 33.9 32.3 - 35.7 g/dL [facility] Comment:Testing performed by : [facility], [address] [place], [place] [phone] RDW CV 15.5(H) 11.1 - 14.9 % [facility] Comment:Testing performed by : [facility], [address] [place] [phone] NRBC abs 0.00 0.00 - 0.01 K/cumm [facility] Comment:Testing performed by : [facility], [address] [place] [phone] Blood 11/08/2024 11:5 1 AM DYNAMOMETER TESTER 11/08/2024 11:55 AM DYNAMOMETER TESTER Haja Rod MD LAB BLOOD ORDERABLES Final Result Performing Organization Address City/[facility]/ZIP Co de Phone Number [facility] [place] [address] * (ABNORMAL) TSH (11/08/2024 11:51 AM DYNAMOMETER TESTER) Thyroid Stimulating Hormone 42.30(H) 0.30 - 4.20 mcIUnit/mL Blood 11/08/2024 11:5 1 AM DYNAMOMETER TESTER 11/08/2024 11:57 AM DYNAMOMETER TESTER Haja Rod MD LAB BLOOD ORDERABLES Final Result [facility] [place] [address] * T4, free (11/08/2024 11:51 AM DYNAMOMETER TESTER) Free T4 0.97 0.90 - 1.70 ng/dL Blood 11/08/2024 11:5 1 AM DYNAMOMETER TESTER 11/08/2024 11:57 AM DYNAMOMETER TESTER us Haja Rod MD LAB BLOOD ORDERABLES Final Result [facility] [place] [address] * (ABNORMAL) Comprehensive metabolic panel (11/08/2024 11:51 AM DYNAMOMETER TESTER) Sodium 144 135 - 145 mmol/L Potassium, pl 4.7 3.3 - 4.9 mmol/L [facility] Chloride 105 97 - 110 mmol/L [facility] CO2 32 22 - 32 mmol/L [facility] Anion gap 7 2 - 15 mmol/L [facility] BUN 25 6 - 25 mg/dL [facility] Creatinine 1.21(H) 0.60 - 1.10 mg/dL [facility] Glucose 94 70 - 199 mg/dL [facility] Comment: Interpretive Data Fasting glucose >/= 126 mg/dl is diagnostic for diabetes. Fasting is defined as no caloric intake for at least 8 hours. Fasting glucose between 100 mg/dl to 125 mg/dl is diagnostic of prediabetes. In a patient with classic symptoms of hyperglycemia or hyperglycemic crisis, a random glucose >/= 200 mg/dl is diagnostic for diabetes. In the absence of unequivocal hyperglycemia, results should be confirmed by repeat testing. The classification and Diagnosis of Diabetes Diabetes Care 2021; 46: S19-S40. Current interpretive data was last revised 2022. Calcium 9.7 8.5 - 10.3 mg/dL [facility] Bilirubin, total 0.9 0.1 - 1.2 mg/dL [facility] Protein, pl 8.2 6.5 - 8.5 g/dL [facility] Albumin 4.9 3.5 - 5.0 g/dL [facility] Alk phos 88 40 - 130 Units/L [facility] ALT 68(H) 7 - 45 Units/L [facility] AST 75(H) 10 - 45 Units/L [facility] Blood 11/08/2024 11:5 1 AM DYNAMOMETER TESTER 11/08/2024 11:57 AM DYNAMOMETER TESTER us Haja Rod MD LAB BLOOD ORDERABLES Final Result [facility] [place] [address] * PET/CT FDG Skull to Thigh (11/01/2024 8:20 AM DYNAMOMETER TESTER) Anatomical Region Laterality Modality N/A Positron Emissio n Tomography (PET) 11/01/2024 10:0 2 AM DYNAMOMETER TESTER Impressions 11/01/2024 1:53 PM DYNAMOMETER TESTER 1. Unchanged scattered bilateral subcentimeter pulmonary nodules with minimal to moderate FDG uptake, which remain suspicious for metastatic disease. 2. New mildly FDG avid subcentimeter left level 2B lymph node, which is indeterminate. Recommend attention on follow-up. Dictated by: Blair Barnett MD The radiology attending physician has personally reviewed this study, and had reviewed and/or edited this written report and agrees with it. Electronically signed by: Jose Morales M.D. Narrative 11/01/2024 1:53 PM DYNAMOMETER TESTER EXAMINATION: TUMOR FDG-PET/CT IMAGING DATE OF STUDY: 11/01/2024 SCANNER: [facility] N PET Vision (NV1). This is a high-resolution scanner, which can result in higher SUVs (and even detection of new small lesions) compared to older scanners. RADIOPHARMACEUTICAL: 16.88 mCi F-18 Fluorodeoxyglucose (FDG) i.v. Injection site: Left antecubital HISTORY: 74-year-old woman with papillary thyroid carcinoma diagnosed in 2012, post thyroidectomy and 2 treatments with radioactive iodine (125 mCi on 12/08/2022 and 100 mCi on 12/08/2013). Subsequent TBS negative x4. Rising thyroglobulin levels. Most recent thyroglobulin on 03/21/2024 was 5.3 which led to an ultrasound of the neck on 02/01/2024 which showed a morphologically abnormal appearing left level III/IV cervical lymph node which was aspirated on 03/06/2024 and was consistent with papillary thyroid carcinoma. Subsequently underwent left neck dissection on 04/10/2024, with 2 lymph nodes showing metastatic disease. The study is requested for restaging after completion of therapy. Subsequent treatment strategy. TECHNIQUE: The patient's fasting blood glucose level, measured by glucometer before injection of FDG, was 128 mg/dL. After intravenous administration of FDG, noncontrast CT images were obtained for attenuation correction and for fusion with emission PET images to allow for anatomical localization of PET findings. Emission PET images were then obtained. The study was interpreted on the [employer] workstation. The mean liver SUV (reported for quality assurance calibrator purposes) is 4.0. The total scanned area was skull vertex to proximal thighs. Images of the body were obtained starting 50 minutes after injection of tracer. All reported SUVs are maximum SUVs, unless otherwise specified. COMPARISON: FDG PET/CT 03/22/2024, neck CT 04/07/2024 DESCRIPTORS OF LESION FDG AVIDITY: Minimal: <= blood pool Mild: > blood pool and <= liver Moderate: > liver and <= 2x SUVmax liver Moderate to marked: >2x SUVmax liver and <= 3x SUVmax liver Marked: > 3x SUVmax liver FINDINGS: There is an unchanged lytic right parietal calvarial lesion with no significant FDG uptake. Postsurgical changes of left neck dissection are noted. There is a new mildly FDG-avid subcentimeter left level IIb lymph node (image 34). Postsurgical changes of thyroidectomy are noted without suspicious focal FDG uptake in the thyroidectomy bed. Again seen are scattered subcentimeter nodules throughout both lungs, not significantly changed in size or number compared to prior examination. An unchanged 6 mm right upper lobe nodule with moderate FDG uptake, now with SUV of 5.3, previously 5.9 (axial image 106). An unchanged 4 mm medial right upper lobe nodule along the pleura with mild FDG uptake, now with SUV of 3.2, previously 3.9 (axial image 130). An unchanged 5 mm right upper lobe nodule has minimal FDG uptake (axial image 113). Mild FDG uptake is noted in a all left lower lobe focus without definite CT correlate (axial image 140). Additional sub-6 mm nodules throughout both lungs are small to characterize by PET/CT and not significantly changed compared to prior. No suspicious FDG uptake below the diaphragm. Additional CT findings: Emphysematous changes noted throughout the lungs. Mild bibasilar atelectasis. Minimal atherosclerotic calcifications of the coronary arteries and thoracic aorta. Cholecystectomy. Right renal cyst. Atherosclerotic ossifications of the abdominal aorta which is nonaneurysmal. Lipoma of the vastus intermedius. Multilevel degenerative changes throughout the spine. Procedure Note Jose Morales MD - 11/01/2024 EXAMINATION: TUMOR FDG-PET/CT IMAGING DATE OF STUDY: 11/01/2024 SCANNER: [facility] [employer] (NV1). This is a high-resolution scanner, which can result in higher SUVs (and even detection of new small lesions) compared to older scanners. RADIOPHARMACEUTICAL: 16.88 mCi F-18 Fluorodeoxyglucose (FDG) i.v. Injection site: Left antecubital HISTORY: 74-year-old woman with papillary thyroid carcinoma diagnosed in 2012, post thyroidectomy and 2 treatments with radioactive iodine (125 mCi on 12/08/2022 and 100 mCi on 12/08/2013). Subsequent TBS negative x4. Rising thyroglobulin levels. Most recent thyroglobulin on 03/21/2024 was 5.3 which led to an ultrasound of the neck on 02/01/2024 which showed a morphologically abnormal appearing left level III/IV cervical lymph node which was aspirated on 03/06/2024 and was consistent with papillary thyroid carcinoma. Subsequently underwent left neck dissection on 04/10/2024, with 2 lymph nodes showing metastatic disease. The study is requested for restaging after completion of therapy. Subsequent treatment strategy. TECHNIQUE: The patient's fasting blood glucose level, measured by glucometer before injection of FDG, was 128 mg/dL. After intravenous administration of FDG, noncontrast CT images were obtained for attenuation correction and for fusion with emission PET images to allow for anatomical localization of PET findings. Emission PET images were then obtained. The study was interpreted on the [employer] workstation. The mean liver SUV (reported for quality assurance calibrator purposes) is 4.0. The total scanned area was skull vertex to proximal thighs. Images of the body were obtained starting 50 minutes after injection of tracer. All reported SUVs are maximum SUVs, unless otherwise specified. COMPARISON: FDG PET/CT 03/22/2024, neck CT 04/07/2024 DESCRIPTORS OF LESION FDG AVIDITY: Minimal: <= blood pool Mild: > blood pool and <= liver Moderate: > liver and <= 2x SUVmax liver Moderate to marked: >2x SUVmax liver and <= 3x SUVmax liver Marked: > 3x SUVmax liver FINDINGS: There is an unchanged lytic right parietal calvarial lesion with no significant FDG uptake. Postsurgical changes of left neck dissection are noted. There is a new mildly FDG-avid subcentimeter left level IIb lymph node (image 34). Postsurgical changes of thyroidectomy are noted without suspicious focal FDG uptake in the thyroidectomy bed. Again seen are scattered subcentimeter nodules throughout both lungs, not significantly changed in size or number compared to prior examination. An unchanged 6 mm right upper lobe nodule with moderate FDG uptake, now with SUV of 5.3, previously 5.9 (axial image 106). An unchanged 4 mm medial right upper lobe nodule along the pleura with mild FDG uptake, now with SUV of 3.2, previously 3.9 (axial image 130). An unchanged 5 mm right upper lobe nodule has minimal FDG uptake (axial image 113). Mild FDG uptake is noted in a all left lower lobe focus without definite CT correlate (axial image 140). Additional sub-6 mm nodules throughout both lungs are small to characterize by PET/CT and not significantly changed compared to prior. No suspicious FDG uptake below the diaphragm. Additional CT findings: Emphysematous changes noted throughout the lungs. Mild bibasilar atelectasis. Minimal atherosclerotic calcifications of the coronary arteries and thoracic aorta. Cholecystectomy. Right renal cyst. Atherosclerotic ossifications of the abdominal aorta which is nonaneurysmal. Lipoma of the vastus intermedius. Multilevel degenerative changes throughout the spine. IMPRESSION: 1. Unchanged scattered bilateral subcentimeter pulmonary nodules with minimal to moderate FDG uptake, which remain suspicious for metastatic disease. 2. New mildly FDG avid subcentimeter left level 2B lymph node, which is indeterminate. Recommend attention on follow-up. Dictated by: Blair Barnett MD The radiology attending physician has personally reviewed this study, and had reviewed and/or edited this written report and agrees with it. Electronically signed by: Jose Morales M.D. Haja Rod MD IMG PET PROCEDURES Final Re sult from Last 3 Months Insurance MEDICARE [facility] MEDICARE [employer] MEDICARE Advance Directives For more information, please contact: [phone] * Full Code (Latest Code Status on File) Date Activated Date Inactivated Comments 04/10/2024 2:11 PM 04/11/2024 3:33 PM Care Teams Janitor Caretaker Relationship Specialty Start Date End Date Bubba Watts MD 9 [facility] [place] [address] PCP - General Family Medicine 03/16/23 Haja Rod MD [address] DIV IM MEDICAL ONCOLOGY, [facility] 7A, 7[address], [address] [place] [address] Medical Oncologist/Business Services Sales Agent Medical Oncology 03/28/24 Faisal Red MD [address] DIV IM MEDICAL ONCOLOGY, [facility] [address]A, 7B, [address] [place] [address] Consulting Physician Otolaryngology 03/28/24 Kailyn Choi, EBEN Registered Nurse Medical Oncology 04/27/24 Naomi Delgadillo MD [address] [facility] 1 [place] [address] Referring Physician Internal Medicine 11/08/24
--- OUTSIDE RECORDS SUMMARY | 2024-11-10 10:11 | XMS_ITS | Clinical Summary ---
Author Organization [facility] [address] Address [address] [place] [address] Care Team Providers Care Jig And Fixture Maker Name Role Phone Bubba Watts MD Primary Care Provider [phone] Haja Rod MD Unavailable Faisal Red MD Unavailable Kailyn Choi RN Unavailable Unavailable Naomi Delgadillo MD Unavailable [phone] Allergies No known active allergies Medications lisinopril [...] 02/10/2014 Overview (12/30/2016): DIS AMINO-ACID METAB NOS Encounters Date Type Department Care Team Description 11/08/2024 1:15 PM ANIMAL HOSPITAL OFFICE SUPERVISOR Office Visit [facility] [address] [facility] [address] [place] [address] Haja Rod MD Papillary thyroid carcinoma (HCC) (Primary Dx); Thyroid cancer (HCC) 11/08/2024 12:15 PM ANIMAL HOSPITAL OFFICE SUPERVISOR Lab [facility] [address] [facility] 5 [place] [address] Thyroid cancer (HCC) 11/08/2024 11:45 AM ANIMAL HOSPITAL OFFICE SUPERVISOR Lab [facility] - Lab Collection [address] [facility] Floor 5 [place] [address] Thyroid cancer (HCC) 11/01/2024 6:06 AM ANIMAL HOSPITAL OFFICE SUPERVISOR - 11/01/2024 11:59 PM ANIMAL HOSPITAL OFFICE SUPERVISOR Hospital Encounter [facility] [address] [place] [address] Discharge Disposition: Discharge to home or self care 11/01/2024 6:06 AM ANIMAL HOSPITAL OFFICE SUPERVISOR - 11/01/2024 11:59 PM ANIMAL HOSPITAL OFFICE SUPERVISOR Hospital Encounter [facility] [address] [place] [address] Thyroid cancer (HCC) Discharge Disposition: Discharge to home or self care 10/25/2024 9:00 AM ANIMAL HOSPITAL OFFICE SUPERVISOR Office Visit [facility] Department of Otolaryngology Head-Neck Division [facility] 5 [place] [address] Primo Sheridan MD Thyroid cancer (HCC) (Primary Dx) from Last 3 Months Immunizations Name Administration Dates Next Due Influenza, Quadrivalent, Hig h Dose, Preservative Free, Intrr 05/29/2020 Influenza, Quadrivalent, Spl it, Preservative Free, Intramuscular 07/05/2018 Influenza, Trivalent, High D ose, Split, Preservative Free, Intramuscular 06/08/2019,07/09/2017 Influenza, Trivalent, IM (MDV) 07/03/2016,2014,09/27/2013 Pfizer SARS-CoV-2 Monovalent Vaccination (12+ Yrs) PURPLE 07/15/2021,12/17/2020,11/26/2020 Pneumococcal Conjugate PCV 13 07/09/2017 Pneumococcal Polysaccharide PPV23 05/04/2018 Tdap 02/05/2022,12/01/2011 ZOSTER LIVE 11/06/2014 Zoster, unspecified 08/28/2021 Surgical History Surgery Date Site/Laterality Comments HYSTERECTOMY Hysterectomy CHOLECYSTECTOMY Cholecystectomy THYROID SURGERY 2013 KNEE ARTHROSCOPY Right COLONOSCOPY Medical History Medical History Date Comments Hypertension Thyroid disease Thyroid cancer (HCC) Asthma Motion sickness Family History Medical History Relation Name Comments Liver cancer Father Stroke Mother Hypertension Other 3 Hypertension; Hyperlipidemia Other 4 Hyperlipidemi a; Pancreatic cancer Sister 1 Relation Name Status Comments Brother 1 Brother 2 Alive Brother 3 58 Alive Father (Age 63) Mother poor health Other 1 Alive Other 2 Alive Other 3 Other 4 Sister 1 (Age 50) Sister 2 Alive Social History Tobacco Use Types Packs/Day Years [...] on file Legal Sex Female 12:55 AM ANIMAL HOSPITAL OFFICE SUPERVISOR Gender Identity Female 01/06/2022 8:48 PM CDT Sexual Orientation Not on file Obstetrics History Last Filed Vital Signs Vital Sign Reading Time Taken Comments Blood Pressure 136/81 11/08/2024 12:08 PM ANIMAL HOSPITAL OFFICE SUPERVISOR Pulse 92 11/08/2024 12:08 PM ANIMAL HOSPITAL OFFICE SUPERVISOR Temperature 36.2 C (97.2 F) 11/08/2024 12:08 PM ANIMAL HOSPITAL OFFICE SUPERVISOR Respiratory Rate 16 11/08/2024 12:08 PM ANIMAL HOSPITAL OFFICE SUPERVISOR Oxygen Saturation 98% 11/08/2024 12:08 PM ANIMAL HOSPITAL OFFICE SUPERVISOR Inhaled Oxygen Concentration - - Weight 99 kg (218 lb 3.2 oz) 11/08/2024 12:08 PM ANIMAL HOSPITAL OFFICE SUPERVISOR Height 170.2 cm (5' 7 ) 10/25/2024 8:11 AM ANIMAL HOSPITAL OFFICE SUPERVISOR Body Mass Index 34.17 10/25/2024 8:11 AM ANIMAL HOSPITAL OFFICE SUPERVISOR Plan of Treatment Health Maintenance Due Date Last Done Comments Colon Cancer Screening-Colonoscopy 1950 Depression Screening 1950 Hepatitis C Screening 1950 Osteoporosis Screening-Bone Density Scan 1950 Hepatitis B Screening 1969 Zoster Vaccine (1 of 2) 01/01/2015 08/28/2021, 11/06 Well Visit 65+ 2016 Breast Cancer Screening-Mammogram 04/16/2023 022 Covid-19 Vaccine (2023-2 5 season) 2024 07/15/2021, 12/17/2020, 11/26/2020 Influenza Vaccine (#1) 2024 , 06/08/2019, 07/05/2018, Additional history exists Fall Risk Assessment 04/11/2025 04/11/2024 DTaP/Tdap/Td Vaccine (3 - Td or Tdap) 02/06/2032 02/05/2022, 12/01/2011 Pneumococcal vaccine 65+ Completed 05/04/2018, 06/27 Procedures Procedure Name Priority Date/Time Associated Diagnosis Comments REFLEX THYROGLOBULIN, TUMOR MARKER, IA, S Routine 11/08/2024 11:51 AM ANIMAL HOSPITAL OFFICE SUPERVISOR EGFR Routine 11/08/2024 11:51 AM ANIMAL HOSPITAL OFFICE SUPERVISOR Thyroid cancer (HCC) DIFFERENTIAL AUTO Routine 11/08/2024 11: 51 AM ANIMAL HOSPITAL OFFICE SUPERVISOR Thyroid cancer (HCC) COMPREHENSIVE METABOLIC PANEL Routine 11/08/2024 11:51 AM ANIMAL HOSPITAL OFFICE SUPERVISOR Thyroid cancer (HCC) T4, FREE Routine 11/08/2024 11:51 AM ANIMAL HOSPITAL OFFICE SUPERVISOR Thyroid cancer (HCC) CBC WITH AUTO DIFFERENTIAL Routine 11/08/2024 11:51 AM ANIMAL HOSPITAL OFFICE SUPERVISOR Thyroid cancer (HCC) TSH Routine 11/08/2024 11:51 AM ANIMAL HOSPITAL OFFICE SUPERVISOR Thyroid cancer (HCC) THYROGLOBULIN REFLEX TO MS OR IA Routine 11/08/2024 11:51 AM ANIMAL HOSPITAL OFFICE SUPERVISOR Thyroid cancer (HCC) PET/CT FDG SKULL TO THIGH Schedule Routine, Read Routine (OP Routine) 11/01/2024 8:20 AM ANIMAL HOSPITAL OFFICE SUPERVISOR Thyroid cancer (HCC) from Last 3 Months Results * (ABNORMAL) Reflex thyroglobulin, tumor marker, IA, S (11/08/2024 11:51 AM ANIMAL HOSPITAL OFFICE SUPERVISOR) Thyroglobulin, Tumor Marker 15(H) ng/mL [place] [facility] Comment: REFERENCE VALUE Athyrotic <0.1 Intact Thyroid <=33 Thyroglobulin interp See Footnote [facility] Comment: Thyroglobulin (Tg) levels must be interpreted [...] testing methods are immunoenzymatic assays manufactured by [employer] and performed on the [employer] DXI 800. Values obtained from different assay methods or kits may be different and cannot be used interchangeably. The results cannot be interpreted as absolute evidence for the presence or absence of malignant disease. Test Performed by: [facility] [address] [place] [address] Clinical Documentation Manager: Anni Aguirre Ph.D.; CLIA# [id number] Blood 11/08/2024 11:5 1 AM ANIMAL HOSPITAL OFFICE SUPERVISOR 11/08/2024 2:23 PM ANIMAL HOSPITAL OFFICE SUPERVISOR Haja Rod MD LAB BLOOD ORDERABLES Final Result [facility] [place] [address] [facility] * (ABNORMAL) eGFR (11/08/2024 11:51 AM ANIMAL HOSPITAL OFFICE SUPERVISOR) eGFR 47(L) >=60 mL/min/1. 73 m2 Comment: [...] reviewed 2021. Blood 11/08/2024 11:5 1 AM ANIMAL HOSPITAL OFFICE SUPERVISOR 11/08/2024 11:57 AM ANIMAL HOSPITAL OFFICE SUPERVISOR Haja Rod MD LAB BLOOD ORDERABLES Final Result Performing Organization Address City/[facility]/ZIP Co de Phone Number [facility] [place] [address] * Differential, auto (11/08/2024 11:51 AM ANIMAL HOSPITAL OFFICE SUPERVISOR) Neutrophil abs 5.6 1.5 - 6.5 K/cumm Comment:Testing performed by : [facility], [address] [place] [phone] Lymphocyte abs 2.6 0.8 - 3.3 K/cumm [facility] Comment:Testing performed by : [facility], [address] [place] [phone] Monocyte abs 0.5 0.2 - 0.8 K/cumm [facility] Comment:Testing performed by : [facility], [address] [place] [phone] Eosinophil abs 0.1 0.0 - 0.5 K/cumm [facility] Comment:Testing performed by : [facility], [address] [place] [phone] Basophil abs 0.1 0.0 - 0.1 K/cumm [facility] Comment:Testing performed by : [facility], [address] [place] [phone] Neutrophil pct 62.2 % [facility] Comment: Interpretive Data Percent cell count reference ranges are not reported, since discordance with absolute values may lead to misinterpretation of CBC data. Current Interpretive Data was last revised on 2018. Testing performed by: [facility], [address] [place] [phone] Lymphocyte pct 29.3 % [facility] Comment: Interpretive Data Percent cell count reference ranges are not reported, since discordance with absolute values may lead to misinterpretation of CBC data. Current Interpretive Data was last revised on 2018. Testing performed by: [facility], [address] [place] [phone] Monocyte pct 5.9 % [facility] Comment: Interpretive Data Percent cell count reference ranges are not reported, since discordance with absolute values may lead to misinterpretation of CBC data. Current Interpretive Data was last revised on 2018. Testing performed by: [facility], [address] [place] [phone] Eosinophil pct 1.4 % [facility] Comment: Interpretive Data Percent cell count reference ranges are not reported, since discordance with absolute values may lead to misinterpretation of CBC data. Current Interpretive Data was last revised on 2018. Testing performed by: [facility], [address] [place] [phone] Basophil pct 1.2 % [facility] Comment: Interpretive Data Percent cell count reference ranges are not reported, since discordance with absolute values may lead to misinterpretation of CBC data. Current Interpretive Data was last revised on 2018. Testing performed by: [facility], [address] [place] [phone] Blood 11/08/2024 11:5 1 AM ANIMAL HOSPITAL OFFICE SUPERVISOR 11/08/2024 11:55 AM ANIMAL HOSPITAL OFFICE SUPERVISOR Haja Rod MD LAB BLOOD ORDERABLES Final Result Performing Organization Address City/[facility]/ZIP Co de Phone Number [facility] [place] [address] * Thyroglobulin reflex to MS or IA (11/08/2024 11:51 AM ANIMAL HOSPITAL OFFICE SUPERVISOR) Anti-thyroglobulin <1.8 <1.8 IUnits/mL [facility] Comment: Thyroglobulin Antibody < 1.8 IU/mL. Thyroglobulin performed by Immunoassay to follow. Test Performed by: [place] [id number] Clinical Documentation Manager: Anni Aguirre Ph.D.; CLIA# [id number] Blood 11/08/2024 11:5 1 AM ANIMAL HOSPITAL OFFICE SUPERVISOR 11/08/2024 2:23 PM ANIMAL HOSPITAL OFFICE SUPERVISOR Haja Rod MD LAB BLOOD ORDERABLES Final Result Performing Organization Address City/[facility]/ZIP Co de Phone Number [facility] [place] [address] [place] ref [facility] * (ABNORMAL) CBC with auto differential (11/08/2024 11:51 AM ANIMAL HOSPITAL OFFICE SUPERVISOR) [facility] WBC 9.0 3.8 - 9.9 K/cumm Comment:Testing performed by : [facility], [address] [place], [place] [phone] Hgb 14.1 11.9 - 15.5 g/dL [facility] Comment:Testing performed by : [facility], [address] [place] [address] Hct 41.5 35.6 - 45.5 % [facility] Comment:Testing performed by : [facility], [address] [place], [place] [phone] Plt 240 150 - 400 K/cumm [facility] Comment:Testing performed by : [facility], [address] [place] [address] MPV 8.4 6.8 - 10.4 fL [facility] Comment:Testing performed by : [facility], [address] [place] [address] RBC 4.50 3.90 - 5.20 M/cumm [facility] Comment:Testing performed by : [facility], [address] [place] [address] MCV 92.2 81.3 - 96.4 fL [facility] Comment:Testing performed by : [facility], [address] [place] [address] MCH 31.3 27.1 - 33.3 pg [facility] Comment:Testing performed by : [facility], [address] [place] [address] MCHC 33.9 32.3 - 35.7 g/dL [facility] Comment:Testing performed by : [facility], [address] [place] [address] RDW CV 15.5(H) 11.1 - 14.9 % [facility] Comment:Testing performed by : [facility], [address] [place] [address] NRBC abs 0.00 0.00 - 0.01 K/cumm [facility] Comment:Testing performed by : [facility], [address] [place] [phone] Blood 11/08/2024 11:5 1 AM ANIMAL HOSPITAL OFFICE SUPERVISOR 11/08/2024 11:55 AM ANIMAL HOSPITAL OFFICE SUPERVISOR Haja Rod MD LAB BLOOD ORDERABLES Final Result Performing Organization Address City/[facility]/ZIP Co de Phone Number [facility] [place] [address] * (ABNORMAL) TSH (11/08/2024 11:51 AM ANIMAL HOSPITAL OFFICE SUPERVISOR) Pathologist [facility] Thyroid Stimulating Hormone 42.30(H) 0.30 - 4.20 mcIUnit/mL Blood 11/08/2024 11:5 1 AM ANIMAL HOSPITAL OFFICE SUPERVISOR 11/08/2024 11:57 AM ANIMAL HOSPITAL OFFICE SUPERVISOR Haja Rod MD LAB BLOOD ORDERABLES Final Result Performing Organization Address [facility] Co de Phone Number [facility] [place] [address] * T4, free (11/08/2024 11:51 AM ANIMAL HOSPITAL OFFICE SUPERVISOR) Free T4 0.97 0.90 - 1.70 ng/dL Blood 11/08/2024 11:5 1 AM ANIMAL HOSPITAL OFFICE SUPERVISOR 11/08/2024 11:57 AM ANIMAL HOSPITAL OFFICE SUPERVISOR Result [facility] Haja Rod MD LAB BLOOD ORDERABLES Final Result Performing Organization Address City/[facility] [place] [address] * (ABNORMAL) Comprehensive metabolic panel (11/08/2024 11:51 AM ANIMAL HOSPITAL OFFICE SUPERVISOR) Sodium 144 135 - 145 mmol/L Potassium, pl 4.7 3.3 - 4.9 mmol/L [facility] Chloride 105 97 - 110 mmol/L [facility] CO2 32 22 - 32 mmol/L [facility] Anion gap 7 2 - 15 mmol/L [facility] BUN 25 6 - 25 mg/dL [facility] Creatinine 1.21(H) 0.60 - 1.10 mg/dL [facility] Glucose 94 70 - 199 mg/dL [facility] Comment: Interpretive Data Fasting glucose >/= 126 [...] 2022. Calcium 9.7 8.5 - 10.3 mg/dL [facility] Bilirubin, total 0.9 0.1 - 1.2 mg/dL [facility] Protein, pl 8.2 6.5 - 8.5 g/dL [facility] Albumin 4.9 3.5 - 5.0 g/dL [facility] Alk phos 88 40 - 130 Units/L [facility] ALT 68(H) 7 - 45 Units/L [facility] AST 75(H) 10 - 45 Units/L [facility] Blood 11/08/2024 11:5 1 AM ANIMAL HOSPITAL OFFICE SUPERVISOR 11/08/2024 11:57 AM ANIMAL HOSPITAL OFFICE SUPERVISOR us Haja Rod MD LAB BLOOD ORDERABLES Final Result [facility] Department of Laboratories [place], [place] [id number] * PET/CT FDG Skull to Thigh (11/01/2024 8:20 AM ANIMAL HOSPITAL OFFICE SUPERVISOR) Anatomical Region Laterality Modality N/A Positron Emissio n Tomography (PET) 11/01/2024 10:0 2 AM ANIMAL HOSPITAL OFFICE SUPERVISOR Impressions 11/01/2024 1:53 PM ANIMAL HOSPITAL OFFICE SUPERVISOR 1. Unchanged scattered bilateral subcentimeter pulmonary nodules [...] Jose Morales M.D. Narrative 11/01/2024 1:53 PM ANIMAL HOSPITAL OFFICE SUPERVISOR EXAMINATION: TUMOR FDG-PET/CT IMAGING DATE OF STUDY: 11/01/2024 SCANNER: [employer] (NV1). This is a high-resolution scanner, which [...] obtained. The study was interpreted on the [employer] workstation. The mean liver SUV (reported for quality control systems manager purposes) is 4.0. The total scanned area [...] FDG-PET/CT IMAGING DATE OF STUDY: 11/01/2024 SCANNER: [facility] [employer] (NV1). This is a high-resolution scanner, which [...] obtained. The study was interpreted on the [employer] workstation. The mean liver SUV (reported for quality control systems manager purposes) is 4.0. The total scanned area [...] sult from Last 3 Months Insurance MEDICARE [facility] MEDICARE [facility] MEDICARE Advance Directives For more information, please contact: [phone] * Full Code (Latest Code Status on File) Date Activated Date Inactivated Comments 04/10/2024 2:11 PM 04/11/2024 3:33 PM Care Teams Jig And Fixture Maker Relationship Specialty Start Date End Date Bubba Watts MD [address] [facility] [place] [address] PCP - General Family Medicine 03/16/23 Haja Rod MD [address] [facility] [address] DIV MEDICAL ONCOLOGY, [facility] [address] [place] [address] Medical Oncologist/Photographic Plate Maker Medical Oncology 03/28/24 Faisal Red MD [address] [facility] [address] [address] [address] DIV IM MEDICAL ONCOLOGY, [facility] [address] [place] [address] Consulting Physician Otolaryngology 03/28/24 Kailyn Choi, RN Registered Nurse Medical Oncology 04/27/24 Naomi Delgadillo MD [address] [facility] [place] [address] Referring Physician Internal Medicine 11/08/24
[2024-11-10 10:15] VITALS: BP 139/79; PULSE 95; RESP 18; TEMP 36.4; O2SAT 99
[2024-11-10 10:30] LABS: EDINFLUASCREEN Negative (Negative); EDINFLUBSCREEN Negative (Negative)
[2024-11-10 10:32] LABS: EDCOVIDSCREEN Negative (Negative)
== END 2024-11-10 10:30 | disposition home or self-care (01) ==
PROVIDERS: Emergency Provider Nurse Practitioner Family; PCP Family Medicine
DX: J06.9 Acute upper respiratory infection, unspecified (principal); R05.9 Cough, unspecified; Z20.822 Contact with and (suspected) exposure to COVID-19; I10 Essential (primary) hypertension; E89.0 Postprocedural hypothyroidism; Z85.828 Personal history of other malignant neoplasm of skin; Z85.850 Personal history of malignant neoplasm of thyroid; Z87.891 Personal history of nicotine dependence
CPT/HCPCS: 87426; 87804; 99213; G0463

== ENCOUNTER 2024-12-26 15:13 | Outpatient (CLI) | payer MEDICARE, SELFPAY ==
--- NOTE | ~2024-12-26 | MM_ITS ---
EXAMINATION: MM screening [facility] BI w lex HISTORY: Screening TECHNIQUE: Craniocaudal and mediolateral oblique 3-D tomosynthesis images were obtained and synthetic 2-D images were generated. CAD analysis was submitted and interpreted. COMPARISON: Comparison to multiple prior studies sequentially, with oldest reviewed study dated 04/15. BREAST PARENCHYMAL COMPOSITION: Not Dense: The breasts are almost entirely fatty. FINDINGS: There is no evidence of suspicious mass, calcification, or architectural distortion to sugg est malignancy in either breast. There has been no suspicious interval change. IMPRESSION: 1. No mammographic evidence of malignancy. 2. Recommend routine screening mammography in one year. BI-RADS Category 1: Negative Reviewed, dictated and finalized at location A.
== END 2024-12-26 15:14 | disposition home or self-care (01) ==
LOC: MICIMG 15:13
PROVIDERS: PCP Family Medicine; Visit Provider Family Medicine
DX: Z12.31 Encounter for screening mammogram for malignant neoplasm of breast (principal)
CPT/HCPCS: 77063; 77067

== ENCOUNTER 2025-01-15 06:48 | Outpatient (CLI) | payer MEDICARE, SELFPAY ==
--- OUTSIDE RECORDS SUMMARY | 2025-01-15 06:53 | XMS_ITS | Data Portability ---
Author Organization [facility], Main Office Address [address] [place] [address] Care Team Providers Care Lab Tech Name Role Phone BUBBA WATTS Primary Care Provider [phone] Assessment Encounter Date Assessment Date Assessment LastModified by Organization Details LastModified Time 12/02/2023 12/02/2023 73 yo F with - [...] us if any concerns. Cont f/u with Lead Electrical Engineer as per schedule. Cont f/u with Cardio at [place] as per schedule. Cont f/u with Plastics at [place] as per schedule. Cont f/u with Endo at [place] as per schedule. Cont f/u with Ophtho at [place] as per schedule. HM: WWE - Long [...] before next visit. Annual labs in 11/21. [email or web address] Not available 12/02/2023 11:19:05 12/07/2024 12/07/2024 74 yo F with - ELEVATED LFTs, mild - HLD - [...] us if any concerns. Cont f/u with Lead Electrical Engineer as per schedule. Cont f/u with Cardio at [place] as per schedule. Cont f/u with Plastics at [place] as per schedule. Cont f/u with Endo at [place] as per schedule. Cont f/u with Ophtho at [place] as per schedule. HM: WWE - Long time ago. Pt declined. Mammo - 12/01/23, normal. Ordered. Colonoscopy - 06/19, polyp ++ in the past. Cont f/u with GI as per schedule (5 yrs). DEXA - 04/15/22, normal. Flu - 07/20. Tdap - 02/05/22. Pneumo - Pt got 2 doses. Shingrix - Pt got 2 doses. F/u in 1-2 months. Annual labs in 11/21. [email or web address] Not available 12/07/2024 09:10:41 01/02/2025 01/02/2025 74 yo F with - WELL ADULT VISIT - ELEVATED LFTs, mild - HLD - HTG - HTN - HYPOTHYROIDISM - B/L FEET PAIN, chronic - PALPITATIONS, intermittent - OBESITY I - EX-SMOKER (Quitted since 1984) - H/O VIT D DEFICIENCY - H/O RT FACIAL CYST Annual labs: 11/11/23. US thyroid: 01/08/23. Annual labs: 02/05/22. CT face with: 12/16/21. D/w pt in detail about her conditions, recent labs & imagines and further plan of care. Will do routine labs. Pt declined for any further work up for her LFTs at this time. Pt declined for any Rx med for her Panic attack/Anxiety attack & feet pain. Meds as directed. Risks Vs benefits of Aspirin 81mg po QD with food explained. Pt agreed. Diet and exercise explained in detail. BP diary education given and call us if any concerns. Cont f/u with Onco at [place] as per schedule. Cont f/u with Lead Electrical Engineer as per schedule. Cont f/u with Cardio at [place] as per schedule. Cont f/u with Plastics at [place] as per schedule. Cont f/u with Endo at [place] as per schedule. Cont f/u with Ophtho at [place] as per schedule. HM: WWE - Long time ago. Pt declined. Mammo - 12/26/24, normal. Colonoscopy - 06/19, polyp ++ in the past. Cont f/u with GI as per schedule (5 yrs). DEXA - 04/15/22, normal. Pt declined. Flu - 07/20. Tdap - 02/05/22. Pneumo - Pt got 2 doses. Shingrix - Pt got 2 doses. F/u in 2-3 weeks. Annual labs in 01/20. Not available 01/02/2025 09:25:56 Plan of Treatment Reminders Order Date Submit Date Provider Last Modified By Organization Details Last Modified Time Details Appointments Follow Up 2024 09:45A Ave Watts MD Not available Not available Not available Lab uric acid, serum or plasma [email or web address] [facility] (Lab), [address] [place], [address], 01/02/2025 10:19:48 CBC w/ auto diff [address] (Lab), [address] [place], [address], 01/02/2025 10:17:20 CMP, serum or plasma [address] (Lab), [address] [place], [address], 01/02/2025 10:17:51 urinalysi s complete, reflex culture [address] (Lab), [address] [place], [address], 01/11/2025 11:09:48 magnesium , serum or plasma [address] (Lab), [address] [place], [address], 01/02/2025 10:18:54 lipid panel, serum [address] (Lab), [address] [place], [address], 01/02/2025 10:15:34 glycohemo globin, total, blood [address] (Lab), [address] [place], [address], 01/02/2025 10:19:21 vitamin D, 25-hydrox y, total, serum [address] [facility] (Lab), [address] [place], [address], 01/03/2025 09:28:31 TSH, serum or plasma [address] [email or web address] [id number] [facility] (Lab), [address] [place], [address], 01/02/2025 10:18:19 lipid panel, serum [address] (Lab), [address] [place], [address], 02/22/2024 08:09:22 hepatic function panel, serum [address] (Lab), [address] [place], [address], 02/22/2024 08:09:23 Referral None recorded. Procedures None recorded. Surgeries None recorded. Imaging MAMMO, screening , bilateral [address], [address], [place] [address], [place], [address], 12/27/2024 09:33:35 Medication Orders lisinopri l 20 mg tablet [address] [facility], [facility], [place], [address], 12/07/2024 09:10:34 atorvasta tin 10 mg tablet [address] [facility], [facility], [place], [address], 12/07/2024 09:10:34 amoxicill in 875 mg-potass ium clavulana te 125 mg tablet [address], [address] [place] [address], [address], 12/07/2024 09:06:54 albuterol sulfate HFA 90 mcg/actua tion aerosol inhaler 2024 025 [facility], [address] [place] [address], [address], 11/16/2024 14:58:40 Medrol (August) 4 mg tablets in a dose pack [address], [address] [place] [address], [address], 12/07/2024 09:07:12 benzonata te 200 mg capsule [address], [address] [place] [address], [address], 12/07/2024 09:07:00 hydroxyzi ne HCl 10 mg tablet [address], [address] [place] [address], [address], 12/07/2024 09:07:40 lisinopri l 20 mg tablet 2023 024 [facility], [facility], [place], [address], 12/02/2023 11:13:51 atorvasta tin 10 mg tablet 2023 024 [facility], [facility], [place], [address], 12/02/2023 11:13:52 Patient TargetsNo targets recorded. Patient Instructions Encounter Date Encounter Id Patient Instructions Last Modified By Organization Details Last Modified Time 09/22/2024 [id number] get Kathi Headspac e , write out thoughts, shred. get book Finding Your Strength in Difficult Times [email or web address] Not available 10/02/2024 09:51:27 Reason for Referral None Reported. Results Created Date Observation Date Name Description Value Unit Range Abnormal Flag Note LastModifiedBy Organization Detail LastModifiedTime 11/11/19 24 11/11/2023 CBC/C OMPLE TE BLD COUNT W/DIF F white blood cells 7.3 x10'3 /uL 4.2-[address] [facility] (Lab) [address] [place], [address], 11/11/2023 19:29:31 11/11/19 24 11/11/2023 CBC/C OMPLE TE BLD COUNT W/DIF F red blood cells 4.64 x10'6 /uL 3.80-[address] [facility] (Lab) [address] [place], [address], 11/11/2023 19:29:31 11/11/19 24 11/11/2023 CBC/C OMPLE TE BLD COUNT W/DIF F hemoglobin 14.3 g/dL 12.0-[address] [facility] (Lab) [address] [place], [address], 11/11/2023 19:29:31 11/11/19 24 11/11/2023 CBC/C OMPLE TE BLD COUNT W/DIF F hematocrit 42.1 % 35.7-[address] [facility] (Lab) [address] [place], [address], 11/11/2023 19:29:31 11/11/19 24 11/11/2023 CBC/C OMPLE TE BLD COUNT W/DIF F mean red cell volume 90.7 fL 82.0-[address] [facility] (Lab) [address] [place], [address], 11/11/2023 19:29:31 11/11/19 24 11/11/2023 CBC/C OMPLE TE BLD COUNT W/DIF F mean red cell hemoglobin 30.8 pg 27.0-[address] [facility] (Lab) [address] [place], [address], 11/11/2023 19:29:31 11/11/19 24 11/11/2023 CBC/C OMPLE TE BLD COUNT W/DIF F mean RBC HGB concentratio n 34.0 g/dL 31.0-[address] [facility] (Lab) [address] [place], [address], 11/11/2023 19:29:31 11/11/19 24 11/11/2023 CBC/C OMPLE TE BLD COUNT W/DIF F red cell distribution width 13.0 % 11.8-[address] [facility] (Lab) [address] [place], [address], 11/11/2023 19:29:31 11/11/19 24 11/11/2023 CBC/C OMPLE TE BLD COUNT W/DIF F platelets 228 x10'3 /uL 150-[address] [facility] (Lab) [address] [place], [address], 11/11/2023 19:29:31 11/11/19 24 11/11/2023 CBC/C OMPLE TE BLD COUNT W/DIF F mean platelet volume 11.3 fL 9.0-[address] [facility] (Lab) [address] [place], [address], 11/11/2023 19:29:31 11/11/19 24 11/11/2023 CBC/C OMPLE TE BLD COUNT W/DIF F neutrophils 58.3 % 39.0-[address] [facility] (Lab) [address] [place], [address], 11/11/2023 19:29:31 11/11/19 24 11/11/2023 CBC/C OMPLE TE BLD COUNT W/DIF F lymphocytes 34.7 % 16.0-[address] [facility] (Lab) [address] [place], [address], 11/11/2023 19:29:31 11/11/19 24 11/11/2023 CBC/C OMPLE TE BLD COUNT W/DIF F monocytes 5.7 % 5.0-[address] [facility] (Lab) [address] [place], [address], 11/11/2023 19:29:31 11/11/19 24 11/11/2023 CBC/C OMPLE TE BLD COUNT W/DIF F eosinophils 0.8 % 1.0-7. [address] [facility] (Lab) [address] [place], [address], 11/11/2023 19:29:31 11/11/19 24 11/11/2023 CBC/C OMPLE TE BLD COUNT W/DIF F basophils 0.4 % 0.0-2. [address] [facility] (Lab) [address] [place], [address], 11/11/2023 19:29:31 11/11/19 24 11/11/2023 CBC/C OMPLE TE BLD COUNT W/DIF F immature granulocytes 0.1 % 0.00-[address] [facility] (Lab) [address] [place], [address], 11/11/2023 19:29:31 11/11/19 24 11/11/2023 CBC/C OMPLE TE BLD COUNT W/DIF F neutrophils, absolute count 4.27 x10'3 /uL 1.5-8. [address] [facility] (Lab) [address] [place], [address], 11/11/2023 19:29:31 11/11/19 24 11/11/2023 CBC/C OMPLE TE BLD COUNT W/DIF F lymphocytes, absolute count 2.55 x10'3 /uL 1.07-[address] [facility] (Lab) [address] [place], [address], 11/11/2023 19:29:31 11/11/19 24 11/11/2023 CBC/C OMPLE TE BLD COUNT W/DIF F monocytes, absolute count 0.42 x10'3 /uL 0.29-[address] [facility] (Lab) [address] [place], [address], 11/11/2023 19:29:31 11/11/19 24 11/11/2023 CBC/C OMPLE TE BLD COUNT W/DIF F eosinophils, absolute count 0.06 x10'3 /uL 0.02-[address] [facility] (Lab) [address] [place], [address], 11/11/2023 19:29:31 11/11/19 24 11/11/2023 CBC/C OMPLE TE BLD COUNT W/DIF F basophils, absolute count 0.03 x10'3 /uL 0.01-[address] [facility] (Lab) [address] [place], [address], 11/11/2023 19:29:31 11/11/19 24 11/11/2023 CBC/C OMPLE TE BLD COUNT W/DIF F immature granulocytes ,absolute 0.01 x10'3 /uL 0.00-[address] [facility] (Lab) [address] [place], [address], 11/11/2023 19:29:31 11/11/19 24 11/11/2023 CBC/C OMPLE TE BLD COUNT W/DIF F nucleated red blood cells 0.0 % -0 Not Available [facility] (Lab) [address] [place], [address], 11/11/2023 19:29:31 11/11/19 24 11/11/2023 CBC/C OMPLE TE BLD COUNT W/DIF F NRBC# 0.00 x10'3 /uL Not Available [facility] (Lab) [address] [place], [address], 11/11/2023 19:29:31 11/11/19 24 11/11/2023 COMPR EHENS SORAYA METAB OLIC PANEL sodium 142 mmol/ L 137-[address] [facility] (Lab) [address] [place], [address], 11/11/2023 20:06:40 11/11/19 24 11/11/2023 COMPR EHENS SORAYA METAB OLIC PANEL potassium 4.3 mmol/ L 3.5-5. [address] [facility] (Lab) [address] [place], [address], 11/11/2023 20:06:40 11/11/19 24 11/11/2023 COMPR EHENS SORAYA METAB OLIC PANEL chloride 107 mmol/ L 98-[address] [facility] (Lab) [address] [place], [address], 11/11/2023 20:06:40 11/11/19 24 11/11/2023 COMPR EHENS SORAYA METAB OLIC PANEL carbon dioxide 25 mmol/ L 22-[address] [facility] (Lab) [address] [place], [address], 11/11/2023 20:06:40 11/11/19 24 11/11/2023 COMPR EHENS SORAYA METAB OLIC PANEL anion gap 14.3 mmol/ L 14-[address] [facility] (Lab) [address] [place], [address], 11/11/2023 20:06:40 11/11/19 24 11/11/2023 COMPR EHENS SORAYA METAB OLIC PANEL glucose 101 mg/dL 70-[address] [facility] (Lab) [address] [place], [address], 11/11/2023 20:06:40 11/11/19 24 11/11/2023 COMPR EHENS SORAYA METAB OLIC PANEL BUN 22 mg/dL 8-[address] [facility] (Lab) [address] [place], [address], 11/11/2023 20:06:40 11/11/19 24 11/11/2023 COMPR EHENS SORAYA METAB OLIC PANEL creatinine 0.74 mg/dL 0.66-[address] [facility] (Lab) [address] [place], [address], 11/11/2023 20:06:40 11/11/19 24 11/11/2023 COMPR EHENS SORAYA METAB OLIC PANEL GFR >60 Refer ence Range : [place] ge GFR Healt hy Adult : >60 [...] or ethni c subgr oups, such as Hisnm nics. Outsi de the valid ated raudel [...] calcu lator is avail able on the F websi te: https ://nigel espinosa.mich chung/pr deniseess devynal s/kdo qi/gf r_cal culat or Not Available [facility] (Lab) [address] [place], [address], 11/11/2023 20:06:40 11/11/19 24 11/11/2023 COMPR EHENS SORAYA METAB OLIC PANEL alkaline phosphatase 80 U/L 38-126 Not Available [facility] (Lab) [address] [place], [address], 11/11/2023 20:06:40 11/11/19 24 11/11/2023 COMPR EHENS SORAYA METAB OLIC PANEL alanine aminotransfe rase 53 U/L 0-35 high Not Available [facility] (Lab) [address] [place], [address], 11/11/2023 20:06:40 11/11/19 24 11/11/2023 COMPR EHENS SORAYA METAB OLIC PANEL aspartate aminotransfe rase 50 U/L 15-37 high Not Available [facility] (Lab) [address] [place], [address], 11/11/2023 20:06:40 11/11/19 24 11/11/2023 COMPR EHENS SORAYA METAB OLIC PANEL bilirubin, total 0.90 mg/dL 0.20-[address] [facility] (Lab) [address] [place], [address], 11/11/2023 20:06:40 11/11/19 24 11/11/2023 COMPR EHENS SORAYA METAB OLIC PANEL calcium 9.6 mg/dL 8.4-[address] [facility] (Lab) [address] [place], [address], 11/11/2023 20:06:40 11/11/19 24 11/11/2023 COMPR EHENS SORAYA METAB OLIC PANEL total protein 7.6 g/dL 6.3-8. [address] [facility] (Lab) [address] [place], [address], 11/11/2023 20:06:40 11/11/19 24 11/11/2023 COMPR EHENS SORAYA METAB OLIC PANEL albumin 4.3 g/dL 3.0-4. [address] [facility] (Lab) [address] [place], [address], 11/11/2023 20:06:40 11/11/19 24 11/11/2023 COMPR EHENS SORAYA METAB OLIC PANEL globulin 3.3 g/dL 2.6-4. [address] [facility] (Lab) [address] [place], [address], 11/11/2023 20:06:40 11/11/19 24 11/11/2023 COMPR EHENS SORAYA METAB OLIC PANEL A/G ratio 1.3 ratio 1.0-2. [address] [facility] (Lab) [address] [place], [address], 11/11/2023 20:06:40 11/11/19 24 11/11/2023 LIPID PANEL cholesterol 131 mg/dL 140-19 9 low NIH MARCELINO NSUS RECOM MENDA TION FOR LJ STERO L: ADULT CHILD LOW RISK: <200 <170 BORDE RLINE : <200- 239 ----- HIGH RISK: >240 >[address] [facility] (Lab) [address] [place], [address], 11/11/2023 20:06:45 11/11/19 24 11/11/2023 LIPID PANEL triglyceride s 177 mg/dL 0-150 high NIH MARCELINO NSUS REPOR T RECOM MENDA TION FOR TRIGL YCERI RIGOBERTO: ADULT CHILD LOW RISK: <150 ----- BODER LINE: 150-1 99 ----- HIGH RISK: >200 ----- Not Available [facility] (Lab) [address] [place], [address], 11/11/2023 20:06:45 11/11/19 24 11/11/2023 LIPID PANEL HDL cholesterol 43 mg/dL 40- Not Available [facility] (Lab) [address] [place], [address], 11/11/2023 20:06:45 11/11/19 24 11/11/2023 LIPID PANEL [...] WILL NOT BE REPOR TIMI. Not Available [facility] (Lab) [address] [place], [address], 11/11/2023 20:06:45 11/11/19 24 11/11/2023 MAGNE SIUM magnesium 1.6 mg/dL 1.6-2. [address] [facility] (Lab) [address] [place], [address], 11/11/2023 20:06:49 11/11/19 24 11/11/2023 VITAM IN D 25-HY DROXY [id number] 62.9 NG/mL 30-100 Vitam in D Statu s: Defic ient: <20 ng/mL Insuf ficie nt: 20-29 ng/mL Suffi cient : 30-10 0 ng/mL Not Available [facility] (Lab) [address] [place], [address], 11/11/2023 20:23:09 11/11/19 24 11/11/2023 URIC ACID SERUM uric acid 6.1 mg/dL 2.5-6. [address] [facility] (Lab) [address] [place], [address], 11/11/2023 20:30:48 11/11/19 24 11/11/2023 HEMOG LOBIN A1C HA1C 5.7 % 4.0-6. 0 Diabe héctor Scree talia Crite delicia: <5.7% Consi stent with absen ce of diabe héctor 5.7-6 .4% Consi stent with incre ased risk for diabe héctor (pred iabet es) >OR=6 .5% Consi stent with diabe héctor REFER ENCE: Diabe héctor Care 2015, 39(Price ppl.1 ):s13 -s22 [address] [facility] (Lab) [address] [place], [address], 11/11/2023 21:30:10 11/11/19 24 11/11/2023 TEST NOT PERFO RMED test not performed SEE COMMEN T UNABL E TO PERFO RM URINA LYSIS TESTI NG DUE TO NO SPECI MEN SENT TO LAB: LAUREN TIFFANIE Murphy 07/[address] [facility] (Lab) [address] [place], [address], 11/11/2023 21:40:12 11/11/19 24 11/11/2023 TSH W/REF JOSÉ FT4 TSH with reflex free T4 <0.015 uIU/m L 0.465- 4.[address] [facility] (Lab) [address] [place], [address], 11/11/2023 21:44:16 11/11/19 24 11/11/2023 T4 FREE free T4 1.90 NG/dL 0.78-[address] [facility] (Lab) [address] [place], [address], 11/11/2023 22:25:00 01/03/20 25 01/02/2025 CBC/C OMPLE TE BLD COUNT W/DIF F white blood cells 6.4 x10'3 /uL 4.2-[address] [facility] (Lab) [address] [place], [address], 01/02/2025 13:25:54 01/03/20 25 01/02/2025 CBC/C OMPLE TE BLD COUNT W/DIF F red blood cells 4.26 x10'6 /uL 3.80-[address] [facility] (Lab) [address] [place], [address], 01/02/2025 13:25:54 01/03/20 25 01/02/2025 CBC/C OMPLE TE BLD COUNT W/DIF F hemoglobin 13.8 g/dL 12.0-[address] [facility] (Lab) [address] [place], [address], 01/02/2025 13:25:54 01/03/20 25 01/02/2025 CBC/C OMPLE TE BLD COUNT W/DIF F hematocrit 40.0 % 35.7-[address] [facility] (Lab) [address] [place], [address], 01/02/2025 13:25:54 01/03/20 25 01/02/2025 CBC/C OMPLE TE BLD COUNT W/DIF F mean red cell volume 93.9 fL 82.0-[address] [facility] (Lab) [address] [place], [address], 01/02/2025 13:25:54 01/03/20 25 01/02/2025 CBC/C OMPLE TE BLD COUNT W/DIF F mean red cell hemoglobin 32.4 pg 27.0-[address] [facility] (Lab) [address] [place], [address], 01/02/2025 13:25:54 01/03/20 25 01/02/2025 CBC/C OMPLE TE BLD COUNT W/DIF F mean RBC HGB concentratio n 34.5 g/dL 31.0-[address] [facility] (Lab) [address] [place], [address], 01/02/2025 13:25:54 01/03/20 25 01/02/2025 CBC/C OMPLE TE BLD COUNT W/DIF F red cell distribution width 12.1 % 11.8-[address] [facility] (Lab) [address] [place], [address], 01/02/2025 13:25:54 01/03/20 25 01/02/2025 CBC/C OMPLE TE BLD COUNT W/DIF F platelets 237 x10'3 /uL 150-40 0 Not Available [facility] (Lab) [address] [place], [address], 01/02/2025 13:25:54 01/03/20 25 01/02/2025 CBC/C OMPLE TE BLD COUNT W/DIF F mean platelet volume 10.6 fL 9.0-[address] [facility] (Lab) [address] [place], [address], 01/02/2025 13:25:54 01/03/20 25 01/02/2025 CBC/C OMPLE TE BLD COUNT W/DIF F neutrophils 55.8 % 39.0-[address] [facility] (Lab) [address] [place], [address], 01/02/2025 13:25:54 01/03/20 25 01/02/2025 CBC/C OMPLE TE BLD COUNT W/DIF F lymphocytes 35.7 % 16.0-[address] [facility] (Lab) [address] [place], [address], 01/02/2025 13:25:54 01/03/20 25 01/02/2025 CBC/C OMPLE TE BLD COUNT W/DIF F monocytes 6.4 % 5.0-[address] [facility] (Lab) [address] [place], [address], 01/02/2025 13:25:54 01/03/2001/02/2025 CBC/C OMPLE TE BLD COUNT W/DIF F eosinophils 1.6 % 1.0-7. [address] [facility] (Lab) [address] [place], [address], 01/02/2025 13:25:54 01/03/20 25 01/02/2025 CBC/C OMPLE TE BLD COUNT W/DIF F basophils 0.3 % 0.0-2. [address] [facility] (Lab) [address] [place], [address], 01/02/2025 13:25:54 01/03/2001/02/2025 CBC/C OMPLE TE BLD COUNT W/DIF F immature granulocytes 0.2 % 0.00-[address] [facility] (Lab) [address] [place], [address], 01/02/2025 13:25:54 01/03/20 25 01/02/2025 CBC/C OMPLE TE BLD COUNT W/DIF F neutrophils, absolute count 3.57 x10'3 /uL 1.5-8. [address] [facility] (Lab) [address] [place], [address], 01/02/2025 13:25:54 01/03/20 25 01/02/2025 CBC/C OMPLE TE BLD COUNT W/DIF F lymphocytes, absolute count 2.28 x10'3 /uL 1.07-[address] [facility] (Lab) [address] [place], [address], 01/02/2025 13:25:54 01/03/20 25 01/02/2025 CBC/C OMPLE TE BLD COUNT W/DIF F monocytes, absolute count 0.41 x10'3 /uL 0.29-[address] [facility] (Lab) [address] [place], [address], 01/02/2025 13:25:54 01/03/20 25 01/02/2025 CBC/C OMPLE TE BLD COUNT W/DIF F eosinophils, absolute count 0.10 x10'3 /uL 0.02-[address] [facility] (Lab) [address] [place], [address], 01/02/2025 13:25:54 01/03/20 25 01/02/2025 CBC/C OMPLE TE BLD COUNT W/DIF F basophils, absolute count 0.02 x10'3 /uL 0.01-[address] [facility] (Lab) [address] [place], [address], 01/02/2025 13:25:54 01/03/20 25 01/02/2025 CBC/C OMPLE TE BLD COUNT W/DIF F immature granulocytes ,absolute 0.01 x10'3 /uL 0.00-[address] [facility] (Lab) [address] [place], [address], 01/02/2025 13:25:54 01/03/20 25 01/02/2025 CBC/C OMPLE TE BLD COUNT W/DIF F nucleated red blood cells 0.0 % -0 Not Available [facility] (Lab) [address] [place], [address], 01/02/2025 13:25:54 01/03/20 25 01/02/2025 CBC/C OMPLE TE BLD COUNT W/DIF F NRBC# 0.00 x10'3 /uL Not Available [facility] (Lab) [address] [place], [address], 01/02/2025 13:25:54 01/03/20 25 01/02/2025 COMPR EHENS SORAYA METAB OLIC PANEL sodium 138 mmol/ L 137-[address] [facility] (Lab) [address] [place], [address], 01/02/2025 14:11:38 01/03/20 25 01/02/2025 COMPR EHENS SORAYA METAB OLIC PANEL potassium 4.6 mmol/ L 3.5-5. 1 Not Available [facility] (Lab) [address] [place], [address], 01/02/2025 14:11:38 01/03/20 25 01/02/2025 COMPR EHENS SORAYA METAB OLIC PANEL chloride 108 mmol/ L 98-107 high Not Available [facility] (Lab) [address] [place], [address], 01/02/2025 14:11:38 01/03/20 25 01/02/2025 COMPR EHENS SORAYA METAB OLIC PANEL carbon dioxide 26 mmol/ L 22-30 Not Available [facility] (Lab) [address] [place], [address], 01/02/2025 14:11:38 01/03/20 25 01/02/2025 COMPR EHENS SORAYA METAB OLIC PANEL anion gap 8.6 mmol/ L 14-22 low Not Available [facility] (Lab) [address] [place], [address], 01/02/2025 14:11:38 01/03/20 25 01/02/2025 COMPR EHENS SORAYA METAB OLIC PANEL glucose 117 mg/dL 70-99 high Not Available [facility] (Lab) [address] [place], [address], 01/02/2025 14:11:38 01/03/20 25 01/02/2025 COMPR EHENS SORAYA METAB OLIC PANEL BUN 22 mg/dL 8-[address] [facility] (Lab) [address] [place], [address], 01/02/2025 14:11:38 01/03/20 25 01/02/2025 COMPR EHENS SORAYA METAB OLIC PANEL creatinine 0.87 mg/dL 0.66-[address] [facility] (Lab) [address] [place], [address], 01/02/2025 14:11:38 01/03/20 25 01/02/2025 COMPR EHENS SORAYA METAB OLIC PANEL GFR >60 Refer ence Range : [place] GFR Healt hy Adult : >60 [...] or ethni c subgr oups, such as Hispa nics. Outsi de the valid ated raudel [...] calcu lator is avail able on the [facility] websi te: https ://nigel elizalde.gloria espinosa.o rg/pr deniseess ional s/kdo qi/gf r_cal culat or Not Available [facility] (Lab) [address] [place], [address], 01/02/2025 14:11:38 01/03/20 25 01/02/2025 COMPR EHENS SORAYA METAB OLIC PANEL alkaline phosphatase 81 U/L 38-126 Not Available [facility] (Lab) [address] [place], [address], 01/02/2025 14:11:38 01/03/20 25 01/02/2025 COMPR EHENS SORAYA METAB OLIC PANEL alanine aminotransfe rase 54 U/L 0-35 high Not Available [facility] (Lab) [address] [place], [address], 01/02/2025 14:11:38 01/03/20 25 01/02/2025 COMPR EHENS SORAYA METAB OLIC PANEL aspartate aminotransfe rase 46 U/L 15-37 high Not Available [facility] (Lab) [address] [place], [address], 01/02/2025 14:11:38 01/03/20 25 01/02/2025 COMPR EHENS SORAYA METAB OLIC PANEL bilirubin, total 0.80 mg/dL 0.20-[address] [facility] (Lab) [address] [place], [address], 01/02/2025 14:11:38 01/03/20 25 01/02/2025 COMPR EHENS SORAYA METAB OLIC PANEL calcium 9.8 mg/dL 8.4-[address] [facility] (Lab) [address] [place], [address], 01/02/2025 14:11:38 01/03/20 25 01/02/2025 COMPR EHENS SORAYA METAB OLIC PANEL total protein 7.4 g/dL 6.3-8. [address] [facility] (Lab) [address] [place], [address], 01/02/2025 14:11:38 01/03/20 25 01/02/2025 COMPR EHENS SORAYA METAB OLIC PANEL albumin 4.5 g/dL 3.0-4. [address] [facility] (Lab) [address] [place], [address], 01/02/2025 14:11:38 01/03/20 25 01/02/2025 COMPR EHENS SORAYA METAB OLIC PANEL globulin 2.9 g/dL 2.6-4. [address] [facility] (Lab) [address] [place], [address], 01/02/2025 14:11:38 01/03/20 25 01/02/2025 COMPR EHENS SORAYA METAB OLIC PANEL A/G ratio 1.6 ratio 1.0-2. [address] [facility] (Lab) [address] [place], [address], 01/02/2025 14:11:38 01/03/20 25 01/02/2025 LIPID PANEL cholesterol 146 mg/dL 140-19 9 NIH MARCELINO NSUS RECOM MENDA TION FOR LJ STERO L: ADULT CHILD LOW RISK: <200 <170 BORDE RLINE : <200- 239 ----- HIGH RISK: >240 >[address] [facility] (Lab) [address] [place], [address], 01/02/2025 14:11:41 01/03/20 25 01/02/2025 LIPID PANEL triglyceride s 205 mg/dL 0-150 high NIH MARCELINO NSUS REPOR T RECOM MENDA TION FOR TRIGL YCERI RIGOBERTO: ADULT CHILD LOW RISK: <150 ----- BODER LINE: 150-1 99 ----- HIGH RISK: >200 ----- Not Available [facility] (Lab) [address] [place], [address], 01/02/2025 14:11:41 01/03/20 25 01/02/2025 LIPID PANEL HDL cholesterol 50 mg/dL 40- Not Available [facility] (Lab) [address] [place], [address], 01/02/2025 14:11:41 01/03/20 25 01/02/2025 LIPID PANEL LDL cholesterol, calculated 55 mg/dL 0-130 NIH MARCELINO NSUS REPOR T [...] WILL NOT BE REPOR TIMI. Not Available [facility] (Lab) [address] [place], [address], 01/02/2025 14:11:41 01/03/20 25 01/02/2025 URIC ACID SERUM uric acid 6.0 mg/dL 2.5-6. [address] [facility] (Lab) [address] [place], [address], 01/02/2025 14:11:43 01/03/20 25 01/02/2025 MAGNE SIUM magnesium 1.7 mg/dL 1.6-2. [address] [facility] (Lab) [address] [place], [address], 01/02/2025 14:11:46 01/03/20 25 01/02/2025 TSH W/REF JOSÉ FT4 TSH with reflex free T4 0.088 uIU/m L 0.465- 4.[address] [facility] (Lab) [address] [place], [address], 01/02/2025 14:12:09 01/03/20 25 01/02/2025 T4 FREE free T4 1.59 NG/dL 0.78-[address] [facility] (Lab) [address] [place], [address], 01/02/2025 14:49:47 01/03/20 25 01/02/2025 VITAM IN D 25-HY DROXY [id number] 60.5 NG/mL 30-100 Vitam in D Statu s: Defic ient: <20 ng/mL Insuf ficie nt: 20-29 ng/mL Suffi cient : 30-10 0 ng/mL Not Available [facility] (Lab) [address] [place], [address], 01/02/2025 14:50:48 01/03/20 25 01/02/2025 HEMOG LOBIN A1C HA1C 5.3 % 4.0-6. 0 Diabe héctor Elizabeth melgar Crite delicia: <5.7% Consi stent with absen ce of diabe héctor 5.7-6 .4% Consi stent with incre ased risk for diabe héctor (pred iabet es) >OR=6 .5% Consi stent with diabe héctor REFER ENCE: Diabe héctor Care 2016, 39(Price ppl.1 ):s13 -s22 [address] [facility] (Lab) [address] [place], [address], 01/02/2025 18:59:52 12/01/19 24 MAMMO , scree talia, digit al, bilat eral [facility] [address] [place] [address] Patien t Name: LAUREN BURT ion #: [id number] Sex: F : 1949 9 Locati on: RA2 Attend ing Physic nelly: RONAK WATTS Orderi ng Physic nelly: RONAK WATTS Exam Date: 12/01/19 24 8:24 AM Exam Name: MG DIGITA L HIREN BILAT SCREEN Admitt ing Diagno [...] tion are seen. Page 1 of 2 [facility] Linda tellez Name: LAUREN BURT ion #: [id number] Sex: F : 1949 9 Exam Date: 12/01/19 8:24 AM Exam Name: MG SYMONE L HIREN BILAT SCREEN Admitt ing Diagno [...] Exam should be part of the period ic health exam-a bout every 3 years for women in their 20s and 30s and every year for women 40 and over. Breast self-e xam is an option for women in their 20s. Any breast change noted on the breast self-e xam she would be report ed prompt ly to the [facility]. A negati ve mammog rogers report [...] MD (CT) (CT) Page [email or web address] [facility] (Imaging) [address] [place], [address], 12/02/2023 11:04:28 11/08/19 25 11/01/2024 PET-C T, whole body scan No observ ation record ed. [email or web address] [facility] [address] [facility], [place], [address], 11/16/2024 14:55:51 12/27/19 25 12/26/2024 MAMMO , scree talia, bilat eral No observ ation record ed. [facility] [address] [facility], [place], [address], 01/02/2025 09:14:40 Result Notes None recorded. Problems Name Problem SNOMED Code Status Onset Date Resolution Date Notes Provider Name and Address Organization Details Recorded Time Impacted cerumen of bilatera l ears 48953137608 80161 Active 2021 Not Available [facility] 3 12:09:18 Acute sinusiti s 18340657 Completed Not Available [facility] 3 06:04:27 Pain of right ankle joint 54771568305 251137 Active 2021 Not Available [facility] 3 12:09:18 Otalgia 11513512 Completed Not Available [facility] 3 06:04:27 Asthma 115283629 Active Not Available [facility] 3 12:09:18 Cellulit is of face 891192654 Active 2021 Not Available [facility] 3 12:09:18 Abscess of face 097541066 Active 2021 Not Available [facility] 3 12:09:18 Fluid level behind tympanic membrane Completed Not Available [facility] 3 06:04:27 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 [facility] Not Available [facility] 3 12:09:18 Facial swelling 032764319 Active 2021 Not Available [facility] 3 12:09:18 Menopaus e present 005637933 Active Not Available [facility] 3 12:09:18 Hypertri glycerid emia 119948248 Active 2021 Not Available [facility] 3 12:09:18 Current tear of medial cartilag e AND/OR meniscus of knee Active Not Available [facility] 3 12:09:18 Current tear of lateral cartilag e AND/OR meniscus of knee Active Not Available [facility] 3 12:09:18 Knee pain Active 2017 Not Available [facility] 3 12:09:18 Otitis externa 9300652 Completed Not Available [facility] 3 06:04:28 Vitamin D deficien cy 64349649 Active 2021 Not Available [facility] 3 12:09:18 Hyperten sive disorder 20887153 Active Not Available [facility] 3 12:09:18 Fever 815835986 Completed Not Available [facility] 3 06:04:28 Osteoart hritis 930638481 Active Not Available [facility] 3 12:09:18 Hypothyr oidism 91749431 Active Not Available [facility] 3 12:09:19 Obesity 998071128 Active 2021 Not Available [facility] 3 12:09:19 History of polyp of colon 441863677 Active 2020 Not Available [facility] 3 12:09:19 Cough 89717772 Completed Bubba Watts MD [address] [facility], [address], [address] , [facility] 5 14:57:40 Upper respirat ory infectio n 26167098 Completed Not Available [facility] 3 06:04:29 Hyperlip idemia 95423873 Active 2021 Not Available [facility] 3 12:09:19 Liver enzymes level above referenc e range 529436012 Active 2016 Not Available [facility] 3 12:09:19 Posterio r rhinorrh ea 20943524 Completed Not Available [facility] 3 06:04:29 Dermoid cyst of face 175361653 Active 2021 Not Available [facility] 3 12:09:19 Fatigue 20896428 Completed Not Available [facility] 3 06:04:30 Intermit tent palpitat ions 515602425 Active 2022 Not Available [facility] 3 12:09:18 Bilatera l chronic pain of feet 02030484505 229423 Active 2022 Not Available [facility] 3 12:09:18 Tendinit is of right posterio r tibial tendon 35440594041 9102 Active 2022 Not Available [facility] 3 12:09:18 Left Achilles tendinit is 63181109124 9102 Active 2022 Not Available [facility] 3 12:09:18 Calcanea l spur 21072305 Active 2022 Not Available [facility] 3 12:09:19 Equinus contract ure of the ankle 770716531 Active 2022 Not Available [facility] 3 12:09:18 Congenit al pes planus 48205296 Active 2022 Not Available [facility] 3 12:09:18 Pain in both feet 92296449188 632606 Active 2022 Not Available [facility] 3 12:09:18 Anxiety 92052796 Active 2023 HECTOR Caruso [address], [place], [address] , [facility] [employer] [facility] 4 12:00:54 Bronchit is 32356304 Active 2024 Bubba Watts MD [address], [place], [address] , [place] [facility] [employer] [facility] 5 14:56:18 Cough 30593851 Active 2024 Bubba Watts MD [address], [place], [address] , [place] [facility] [employer] [facility] 5 14:57:40 Multiple nodules of lung 087179553 Active 2024 Bubba Watts MD [address], [place], [address] , [facility] [employer] [facility] 5 09:30:30 Problem Notes None recorded. Procedures Surgical History Date Name Laterality Status Provider Name and Address Organization Details Recorded Time 4 Ear Irrigation completed Bubba Watts MD [address], [place], [address], [facility] [employer] [facility] 12/02/2023 11:05:21 3 Joint Injection-Podia try completed Juan R Lucas DPM [address], [place], [address], [facility] [employer] [facility] 04/05/2023 11:53:46 Imaging Results Imaging Date Name Status LastModified by Organiz ation Details LastModified Time 12/01/2023 MAMMO, screening, digital, bilateral completed [email or web address] [facility] (Imaging) [address] [place], [address], 12/02/2023 11:04:28 11/01/2024 PET-CT, whole body scan completed [email or web address] [facility] [place], [address], 11/16/2024 14:55:51 12/26/2024 MAMMO, screening, bilateral completed [facility] [address] [facility] [address], [place], [address], 01/02/2025 09:14:40 Procedure Notes None recorded. Medical Equipment None [...] completed Not Available Not Available Not Available prednison e 10 mg tablet 07/05 completed Not Available Not Available Not Available ipratropi um 0.5 mg-albute rol 3 mg (2.5 mg base)/3 mL nebulizat ion soln active ndc#: [id number] 09-29 Not Available Not Available Not [...] Not Available Not Available No t Available benzonata te 200 mg capsule Take 1 capsule every 8 hours by oral route as needed for 7 days. 12/07 completed Not Available Not Available Not Available hydrocodo ne 5 mg-acetam inophen 325 [...] Not Available No t Available prednison e 20 mg tablet 12/07 completed Not Available Not Available Not Available Debrox 6.5 % ear drops INSTILL [...] ne 500 mg solution for injection active [facility]#: [id number] 04-27 Not Available Not Available Not [...] 4 mg tablets in a dose pack take po as directed 12/07 completed Not Available Not Available Not Available albuterol sulfate HFA 90 mcg/actua tion aerosol inhaler INHALE 2 PUFFS BY MOUTH EVERY 4 HOURS NEEDED active Not Available Not Available No t Available hydroxyzi ne HCl 10 mg tablet 1 or 2 tabs po as needed for anxiety up to three times daily 12/07 completed Not Available Not Available Not Available fluticaso ne propionat e 50 mcg/actua tion [...] every 12 hours by oral route as directed for 7 days. 12/07 completed Not Available Not Available Not Available amoxicill in 500 mg-potass ium clavulana te 125 mg tablet Take 1 tablet every 12 hours by oral route for 10 days. active Not Available Not Available No t Available oxycodone 5 mg tablet 12/07 completed Not Available Not Available Not Available valsartan 160 mg tablet TAKE 1 TABLET DAILY active Not Available Not Available No t Available Asprin Ec Low Dose 81 mg tablet,de layed release Take 1 tablet every day by oral route. active Not Available Not Available No t Available Ciprodex 0.3 %-0.1 % ear drops,clarissa pension active Not Available Not Available Not Available Unithroid 137 mcg tablet TAKE 1 TABLET DAILY active Not Available Not Available No t Available Dulera 100 mcg-5 mcg/actua tion HFA aerosol inhaler Inhale 2 puffs twice a day by inhalati on route. 02/18 completed Not Available Not Available Not Available mometason e 100 mcg/actua tion HFA aerosol inhaler Inhale 2 puffs twice a day by inhalati on route. 02/18 completed Not Available Not Available Not Available Fluzone High-Dose Quad 2020- (PF) 240 mcg/0.7 mL IM syringe PHARMACI [...] Updated DateTime 4 170.18 cm 33.4 kg/m2 40385.6 2 g 98 [degF] 85 /min 20 /min 97 % 97 % 0 Magali Montoya RN [place] [facility] [place] [employer] 4 10:59:14 Date Recorded Systolic blood pressure Diastolic blood pressure Provider Name and Address Organization Details Last Updated DateTime 12/02/2023 150 mm[Hg] 80 mm[Hg] Bubba Watts, MD [address], [place], [address], [facility] [employer] [facility] 12/02/2023 11:17:25 Date Recorded Body height Body mass index (BMI) Body weight Body temperature Heart rate Oxygen saturation Oxygen saturation in Arterial blood by Pulse oximetry Systolic blood pressure Diastolic blood pressure Provider Name and Address Organization Details Last Updated DateTime 4 170.18 cm 34.5 kg/m2 53298.3 2 g 97.6 [degF] 81 /min 99 % 99 % 136 mm[Hg] 100 mm[Hg] June Anders RN [facility] [employer] [facility] 4 11:51:34 Date Recorded Body height Body mass index (BMI) Body weight Body temperature Oxygen saturation Oxygen saturation in Arterial blood by Pulse oximetry Heart rate Systolic blood pressure Diastolic blood pressure Provider Name and Address Organization Details Last Updated DateTime 5 170.18 cm 34 kg/m2 31479.2 9 g 97 [degF] 96 % 96 % 90 /min 140 mm[Hg] 80 mm[Hg] Rajni Pérez RN [facility] [employer] [facility] 5 14:54:28 Date Recorded Body height Body mass index (BMI) Body weight Body temperature Oxygen saturation Oxygen saturation in Arterial blood by Pulse oximetry Heart rate Systolic blood pressure Diastolic blood pressure Provider Name and Address Organization Details Last Updated DateTime 5 170.18 cm 33.6 kg/m2 94733.5 7 g 97.3 [degF] 93 % 93 % 88 /min 118 mm[Hg] 70 mm[Hg] Rajni Pérze RN [facility] [employer] [facility] 5 09:05:24 Date Recorded Body height Body mass index (BMI) Body weight Body temperature Oxygen saturation Oxygen saturation in Arterial blood by Pulse oximetry Heart rate Systolic blood pressure Diastolic blood pressure Provider Name and Address Organization Details Last Updated DateTime 5 170.18 cm 34 kg/m2 54037.5 4 g 97.3 [degF] 97 % 97 % 82 /min 130 mm[Hg] 80 mm[Hg] Rajni Pérez RN [facility] [employer] [facility] 5 09:10:09 Social History Question Answer Notes LastModified by Organization Details LastModified Time Tobacco Smoking Status Former Smoker [facility] 02/04/2023 10:26:57 Do You Have An Advance Directive? No MIGRATION.0301 [id number] Information not available 11/25/2022 What Is Your Level Of Alcohol Consumption? Occasional [email or web address] Information not available 02/04/2023 Do You Wear A Helmet When Biking? No MIGRATION.0301 639610 Information not available 11/25/2022 Are You Blind Or Do You Have Difficulty Seeing? No MIGRATION.0301 424363 Information not available 11/25/2022 What Is Your Level Of Caffeine Consumption? Occasional Half Cup Coffee Per Day [email or web address] Information not available 01/02/2025 In The 14 Days Before Symptom Onset, Have You Had Close Contact With A Laboratory-confi rmed COVID-19 While That Case Was Ill? No MIGRATION.0301 730212 Information not available 11/25/2022 In The 14 Days Before Symptom Onset, Have You Had Close Contact With A Person Who Is Under Investigation For COVID-19 While That Person Was Ill? No MIGRATION.0301 725096 Information not available 11/25/2022 Are You Deaf Or Do You Have Serious Difficulty Hearing? No MIGRATION.0301 760274 Information not available 11/25/2022 What Type Of Diet Are You Following? REGULAR MIGRATION.0301 000015 Information not available 11/25/2022 Which Illicit Or Recreational Drugs Have You Used? None MIGRATION.0301 602219 Information not available 11/25/2022 Do You Or Have You Ever Used E-cigarettes Or Vape? 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 No MIGRATION.0301 521538 Information not available 11/25/2022 What Is The Fluoride Status Of Your Home? Unknown MIGRATION.0301 509188 Information not available 11/25/2022 When Did You Quit Smoking? 17+yearssincelastjm lorenzo Quit In 1965 [email or web address] Information not available 01/02/2025 Are There Any Guns Present In Your Home? No MIGRATION.0301 849086 Information not available 11/25/2022 Do You Use Insect Repellent Routinely? No MIGRATION.0301 541421 Information not available 11/25/2022 Where Do You Live? SingleLevelHouse MIGRATION.0301 593621 Information not available 11/25/2022 Do You Have A Medical Power Of Mud Worker? No MIGRATION.0301 953312 Information not available 11/25/2022 What Is Your Current Pack Years? 10packyears [email or web address] Information not available 01/02/2025 Do You Have Any Pets? Yes MIGRATION.0301 780341 Information not available 11/25/2022 What Is Your Relationship Status? MIGRATION.0301 964546 Information not available 11/25/2022 Do You Use Your Seat Belt Or Car Seat Routinely? Yes MIGRATION.0301 085319 Information not available 11/25/2022 Do You Have Smoke And Carbon Monoxide Detectors In Your Home? Yes MIGRATION.0301 161473 Information not available 11/25/2022 At What Age Did You Start Smoking Tobacco? 14 Information not available 01/02/2025 Are You Passively Exposed To Smoke? No MIGRATION.0301 806574 Information not available 11/25/2022 Do You Or Have You Ever Used Smokeless Tobacco? Never Used Smokeless Tobacco MIGRATION.0301 589588 Information not available 11/25/2022 Are There Any Smokers In Your House? No MIGRATION.0301 555909 Information not available 11/25/2022 How Much Tobacco Do You Smoke? 1 PPD [email or web address] Information not available 01/02/2025 Do You Participate In Social Media? No MIGRATION.0301 067415 Information not available 11/25/2022 Do You Feel Stressed (tense, Restless, Nervous, Or Anxious, Or Unable To Sleep At Night)? [id number] MIGRATION.0301 065275 Information not available 11/25/2022 Do You Use Any Illicit Or Recreational Drugs? No [email or web address] Information not available 01/02/2025 Do You Use Sunscreen Routinely? No MIGRATION.0301 578811 Information not available 11/25/2022 Has Tobacco Cessation Counseling Been Provided? No MIGRATION.0301 759591 Information not available 11/25/2022 How Many Years Have You Smoked Tobacco? 3 [email or web address] Information not available 01/02/2025 Have You Recently Traveled Abroad? No MIGRATION.0301 025807 Information not available 11/25/2022 Are You Currently In School? No MIGRATION.0301 041734 Information not available 11/25/2022 Do You Have Any Dietary Restrictions? No MIGRATION.0301 646381 Information not available 11/25/2022 Do You Or Have You Ever Used Any Other Forms Of Tobacco Or Nicotine? No MIGRATION.0301 305469 Information not available 11/25/2022 Sex: Female Functional Status Question Answer Note LastModified by Organizat ion Details LastModified Time Do you have difficulty walking or climbing stairs? No MIGRATION.[id number] 026 Information not available 11/25/2022 Do you have transportation difficulties? No MIGRATION.[id number] 026 Information not available 11/25/2022 Are you able to walk? YESWOREST MIGRATION.3311387 026 Information not available 11/25/2022 Do you have difficulty doing errands alone? No MIGRATION.4395503 026 Information not available 11/25/2022 Are you able to care for yourself? Yes MIGRATION.1669065 026 Information not available 11/25/2022 Do you have difficulty dressing or bathing? No MIGRATION.6032003 026 Information not available 11/25/2022 What is your exercise level? Heavy MIGRATION.0467904 026 Information not available 11/25/2022 Mental Status Question Answer Note LastModified by Organizat ion Details LastModified Time Do you have difficulty concentrating, remembering or making decisions? No MIGRATION.[id number] 6 Information not available 11/25/2022 Family History [...] e and Address Organization Details Recorded Time MMR 5 completed Rajni Pérez RN null, [facility] 12/07/2024 14:01:39 Respiratory syncytial virus (RSV) vaccine, unspecified 4 completed [facility] 12/16/2023 17:16:10 COVID-19, mRNA, LNP-S, PF, margaret-sucrose, 30 mcg/0.3 mL 4 completed [facility] 06/27/2024 16:11:57 Influenza, high-dose, trivalent, PF 9 completed Not Available [facility] 06/28/2023 12:09:19 Influenza, split virus, trivalent, preservative 5 completed Not Available [facility] 06/28/2023 12:09:19 COVID-19, mRNA, LNP-S, PF, 30 mcg/0.3 mL dose 1 completed Not Available [facility] 06/28/2023 12:09:19 SARS-COV-2 (COVID-19) vaccine, UNSPECIFIED 1 completed Not Available [facility] 06/28/2023 12:09:19 SARS-COV-2 (COVID-19) vaccine, UNSPECIFIED 1 completed Not Available [facility] 06/28/2023 12:09:19 Influenza, high-dose, quadrivalent, PF 0 completed Not Available [facility] [facility] 06/28/2023 12:09:19 Influenza, split virus, trivalent, preservative 6 completed Not Available [facility] 06/28/2023 12:09:19 Influenza, split virus, trivalent, preservative 4 completed Not Available [facility] 06/28/2023 12:09:19 Tdap 2 completed Not Available [facility] 06/28/2023 12:09:19 Tdap 2 completed Not Available [facility] 06/28/2023 12:09:19 Influenza, split virus, quadrivalent, PF 8 completed Not Available [facility] 06/28/2023 12:09:19 pneumococcal polysaccharide PPV23 8 completed Not Available [facility] 06/28/2023 12:09:19 Influenza, high-dose, trivalent, PF 7 completed Not Available [facility] 06/28/2023 12:09:19 Pneumococcal conjugate PCV 13 7 completed Not Available [facility] 06/28/2023 12:09:19 zoster, unspecified formulation 1 completed Not Available [facility] 06/28/2023 12:09:19 zoster live 5 completed Not Available [facility] 06/28/2023 12:09:19 Past Encounters Encounter ID Performer Location Encounter Start Date Encounter Closed Date Diagnosis/Indication Diagnosis SNOMED-CT Code Diagnosis ICD10 Code Diagnosis Note [id number] [facility] [address] [place] [address] 02/18/2021 00:00:00 02/18/2021 10:04:45 [id number] [facility] [address] [place] [address] 02/19/2021 00:00:00 02/19/2021 15:07:37 [id number] [facility] [address] [place] [address] 12/15/2021 00:00:00 12/15/2021 13:57:41 [id number] [facility] [address] [place] [address] 12/16/2021 00:00:00 12/16/2021 09:28:59 [id number] [facility] [address] [place] [address] 12/22/2021 00:00:00 12/22/2021 17:53:10 [id number] [facility] [address] [address] 02/05/2022 00:00:00 02/05/2022 11:55:16 [id number] [facility] [address] [place], [place] [address] [place] [address] 02/25/2022 00:00:00 02/25/2022 10:14:48 [id number] [facility] [address] [place] [address] 05/25/2022 00:00:00 05/25/2022 09:03:06 [id number] [facility] [address] [place] [address] 05/28/2022 00:00:00 05/28/2022 09:28:42 [id number] [facility] [address] [place] [address] 06/08/2022 00:00:00 06/08/2022 17:34:04 [id number] [facility] [address] [place] [address] 08/03/2022 00:00:00 08/03/2022 14:25:03 [id number] [facility] [address] [place] [address] 08/11/2022 00:00:00 08/11/2022 09:20:33 [id number] Bubba Watts MD [facility] [address] [place] [address] 01/11/2023 13:51:34 01/11/2023 14:21:59 Intermittent palpitations 574655877 R00.2 of relative 460657 008 Z63.4 Hypertensive disorder 38 177794 I10 Hyperlipidemia 58657880 E78.5 Hypertriglyceridemia 302 709359 E78.2 Obesity 063493983 E66.9 Bilateral chronic pain of feet 6277418988 0950025 M79.672 [id number] Juan R Lucas DPM [facility] [place] [address] [place] [address] 02/04/2023 10:19:46 02/04/2023 12:10:48 Pain in both feet 9709055944 6484847 M79.671 M79.672 report bilateral feet 01/11 reviewed from [facility] x-raysrepe at x-rays today Congenital pes planus 23 948167 Q66.51 Q66.52 bilateral feetX-rays reviewed with the patientRec ommend orthotics Tendinitis of right posterior tibial tendon 3041816450 57198 M76.821 Rx physical therapyrec ommend over-the-c ounter [employer] [facility] Left Achil les tendinitis 4328668768 60733 M76.62 Rx physical therapyEdu cated on conditionC ontinue night splint at homerecomm end soft supportive shoe counter new balance style shoes which she has Equinus co ntracture of the ankle 005342826 M24.572 rice therapyRx physical therapy Calcaneal spur 23946509 M77.31 M77.32 bilateral worse to the leftx-rays reviewed with the patientrec ommend offloading to prevent inflammati on [id number] Juan R Lucas DPM [facility] [place] [address] [place] [address] 04/05/2023 11:30:30 04/05/2023 12:17:53 Bilateral chronic pain of feet 7585621663 5039386 M79.672 This note is dictated and transcribe d by [employer]. Transcript ion variances may occur. Despite proofreadi ng, typographi wanda errors may occur. Congenital pes planus 23 825420 Q66.51 Q66.52 bilateral feetX-rays reviewed with the patientcon tinue orthotics supportive shoe gear Tendinitis of right posterior tibial tendon 6489280826 95753 M76.821 Rx physical therapy- hold physical therapy for 3 weeks the infantinje ction along posterior tibial tendon at that attachment of the navicular with 90% pain resolution upon injectionc ontinue [employer] [facility] orthoticsr ice therapy daily, reviewed with the patientfol low-up in 10 weeks Left Achil les tendinitis 9077680019 35694 M76.62 ResolvedCo ntinue at-home therapyCon tinue offloading and supportive shoeFollow -up as needed Calcaneal spur 74649331 M77.31 M77.32 bilateral worse to the leftas above [id number] Bubba Watts MD [facility] [address] [place] [address] 11/11/2023 12:11:47 11/11/2023 12:43:09 Hypertensive disorder 03820528 I10 Hypertriglyceridemia 302 832892 E78.2 Hyperlipidemia 71982365 E78.5 Hypothyroidism 63801776 E03.9 Intermitte nt palpitations 671807070 R00.2 Obesity 926475612 E66.9 Osteoarthritis 013573431 M19.90 Vitamin D deficiency 347 72349 E55.9 Screening mammography 24 041170 Z12.31 Impacted c erumen of bilateral ears 2933764918 679948 H61.23 [id number] Bubba Watts MD [address] [address] 12/02/2023 10:47:02 12/02/2023 11:21:16 Hypertensive disorder 27678717 I10 Hypertriglyceridemia 302 466665 E78.2 Hyperlipidemia 32253031 E78.5 Hypothyroidism 14332530 E03.9 Intermitte nt palpitations 521693682 R00.2 Obesity 894716692 E66.9 Osteoarthritis 484475449 M19.90 Vitamin D deficiency 347 17825 E55.9 Improved Impacted c erumen of bilateral ears 3611493792 474226 H61.23 Liver enzy mes level above reference range 160594067 R74.01 [id number] [facility] [address] [address] 09/22/2024 11:43:36 09/22/2024 12:16:59 Anxiety 32889062 F41.9 Hypertensive disorder 38 333050 I10 Hyperlipidemia 26938352 E78.5 Vitamin D deficiency 347 50442 E55.9 Obesity 395851323 E66.9 [id number] Bubba Watts MD [address] [address] 11/16/2024 14:41:20 11/16/2024 15:04:22 Seen in emergency clinic 915027573 Z76.89 UC Bronchitis 83916102 J40 Cough 43798066 R05.9 [id number] Bubba Watts MD [address] [address] 12/07/2024 08:46:31 12/07/2024 09:22:02 Hypertensive disorder 22222114 I10 Hypertriglyceridemia 302 674678 E78.2 Hyperlipidemia 04280304 E78.5 Hypothyroidism 86221535 E03.9 Intermitte nt palpitations 353185502 R00.2 Obesity 337594766 E66.9 Osteoarthritis 882424292 M19.90 Vitamin D deficiency 347 09769 E55.9 Improved Liver enzy mes level above reference range 824611521 R74.01 Active or passive immunization 505833761 Z23 Screening mammography 24 615745 Z12.31 [id number] Bubba Watts MD [address] [address] 01/02/2025 08:51:49 01/02/2025 09:38:49 Hypertensive disorder 93123110 I10 Hypertriglyceridemia 302 217688 E78.2 Hyperlipidemia 32840719 E78.5 Hypothyroidism 76555089 E03.9 Intermitte nt palpitations 174674921 R00.2 Obesity 207096771 E66.9 Osteoarthritis 615875942 M19.90 Vitamin D deficiency 347 43229 E55.9 Improved Liver enzy mes level above reference range 646704696 R74.01 Multiple n odules of lung 202982680 R91.8 Health Concerns Section Related Observation LastModified by Organization Detai ls LastModified Time None Recorded Concern Status LastModified by Organization Details LastModified Time None Recorded Advance Directives Directive N: Payers Encounter Date Sequence Insurance Name Policy Number Policy [place] Covered Member ID [place] Member ID Guarantor Name 12/02/2023 2 [place] Lauren Burt [id number] Lauren Burt 12/02/2023 1 [employer] (MEDICARE REPLACEMENT PPO) [id number] Lauren Burt [id number] Lauren Burt 09/22/2024 2 [place] Lauren Burt [id number] Lauren Burt 09/22/2024 1 [employer] (MEDICARE REPLACEMENT PPO) [id number] Lauren Burt [id number] Lauren Burt 11/16/2024 1 [employer] (MEDICARE REPLACEMENT PPO) Lauren Burt [id number] Lauren Burt 12/07/2024 1 [employer] (MEDICARE REPLACEMENT PPO) Lauren Burt [id number] Lauren Burt 01/02/2025 1 [employer] (MEDICARE REPLACEMENT PPO) Lauren Burt [id number] Lauren Burt Notes Date Note Type Note Provider Name and Address Organization Details Recorded Time 12/02/2023 text/html Pt is here for f /u on her annual labs and b/l ear flushing. Doing overall well. Denies any problem with meds. Denies any new concern. Pt has her home BP log with her and it looks good. No concern with it. Pt is f/u with multiple specialists for her chronic conditions. Bubba Watts MD [address], [place] [address], [place], [address], [employer] 12/02/2023 11:20:52 09/22/2024 text/html Just diagnosed with lung cancer. , February or March last year a spot on the right . took 17 , lymph nodes , [address] Rod at [facility] [address], [facility] [address], [place], [address], [employer] 10/02/2024 09:52:32 11/16/2024 text/html ACV: C/o cough, congestion, drainage, fatigue for last 1.5 weeks. Pt went to for this and got swabs done and she was told that she has URI. Pt's is also sick and on Rx meds and now is doing better. Bubba Watts MD [address], [facility] [address], [place], [address], [employer] 11/16/2024 15:02:14 12/07/2024 text/html Pt is here for f /u on her meds and chronic conditions. Doing overall well. Denies any problem with meds. Denies any new concern. Pt wants MMR vaccine today. Pt has her home BP log with her and it looks good. No concern with it. Pt is f/u with multiple specialists for her chronic conditions. Bubba Watts MD [address], [facility] [address], [place], [address], [employer] 12/07/2024 09:20:15 01/02/2025 text/html Pt is here for h er annual exam. Doing overall well. Denies any problem with meds. Denies any new concern. Pt wants to get her annual labs done today. Pt has her home BP log with her and it looks good. No concern with it. Pt is f/u with multiple specialists for her chronic conditions. Pt is f/u with [facility] for spots on her b/l lungs and she is getting PET scan with them every 6 months. She did not require any surgery/chemo/radi ation for it as per her [facility]. Bubba Watts MD [address], [facility] [address], [place], [address], [employer] 01/02/2025 09:31:36 OBGyn Episode No OBEpisode recorded.
[2025-01-15 08:35] LABS: Thyroid Stimulating Hormone 0.057 uIU/mL (0.465-4.680)
== END 2025-01-15 06:49 | disposition home or self-care (01) ==
LOC: ANHLAB 06:50
PROVIDERS: PCP Family Medicine; Visit Provider Internal Medicine Endocrinology, Diabetes & Metabolism
DX: C73 Malignant neoplasm of thyroid gland (principal)
CPT/HCPCS: 36415; 84439; 84443